=== PATIENT | male | born 1955 | race Caucasian/White ===

== ENCOUNTER 2017-05-20 22:44 | Emergency (ER) | payer MEDICARE, MEDICAID ==
[~2017-05-20] VITALS: Ht 183.5 cm; Wt 100.0 kg
[~2017-05-20 22:44] MED LIST: ALBU18HF2 IH; ASPI-1009 PO; CARV25TA3 PO; DULO60CA64 PO; FINA5TAB3 PO; FOLI1TAB16 PO; FURO40TA4 PO; GABA-532 PO; HYDR-4069 PO; HYDR-565 PO; INSU100I31 SQ; INSU200I SQ; ISOS30TA9 PO; LEVO250T58 PO; MOME13HF INH; NEPHC PO; OMEP20TA5 PO; [UNRECOGNIZED DRUG - CODE] PO
[2017-05-20 23:32] LABS: BASOPHILS % (AUTO) 0.2 % (0-1); EOSINOPHILS # (AUTO) 0.1 X10'3 (0-0.9); EOSINOPHILS % (AUTO) 0.8 % (0-6); HEMATOCRIT 37.7 % (42.0-52.0); LYMPHOCYTES # (AUTO) 1.4 X10'3 (1.1-4.8); LYMPHOCYTES % (AUTO) 19.1 % (21-51); MEAN CORPUSCULAR HEMOGLOBIN 34.7 PG (27.0-31.0); MEAN CORPUSCULAR HGB CONC 34.4 % (33.0-36.5); MEAN CORPUSCULAR VOLUME 100.6 FL (78-98); MONOCYTES # (AUTO) 0.5 X10'3 (0-0.9); NEUTROPHILS # (AUTO) 5.2 X10'3 (1.8-7.7); NEUTROPHILS % (AUTO) 72.9 % (42-75); PLATELET COUNT 108 X10'3 (140-440); RED BLOOD COUNT 3.75 X10'6 (4.70-6.10); RED CELL DISTRIBUTION WIDTH 14.3 % (11.5-14.5); WHITE BLOOD COUNT 7.2 X10'3 (4.5-11.0)
[2017-05-20 23:41] LABS: ABG BASE EXCESS 5.2 mmol/L (-2.0-3.0); ABG HCO3 28.6 mmol/L (22.0-26.0); ABG OXYGEN SATURATION 89.8 % (95-98); ABG PCO2 (T) 37.3 mmHg (35.0-48.0); ABG PH (T) 7.501 (7.350-7.450); ABG PO2 (T) 52.5 mmHg (83-108); ALLEN'S TEST Positive; FCOHb 3.6 % (0.5-1.5); FMetHb 0.1 % (0.3-1.12); FO2Hb 86.5 % (94-100); PATIENT TEMPERATURE 36.6; TOTAL HEMOGLOBIN 13.8 G/dl (14.0-18.0)
[2017-05-20 23:43] LABS: INR 1.1 INR; PARTIAL THROMBOPLASTIN TIME 24 SECONDS (22-32); PROTHROMBIN TIME 11.4 SECONDS (9.0-12.0)
[2017-05-20 23:49] LABS: ALANINE AMINOTRANSFERASE 57 U/L (12-78); ALBUMIN 3.1 G/DL (3.4-5.0); ALBUMIN/GLOBULIN RATIO 0.8 (1.1-1.5); ALKALINE PHOSPHATASE 91 IU/L (46-116); ANION GAP 7 (8-16); ASPARTATE AMINO TRANSFERASE 44 U/L (10-37); BILIRUBIN,TOTAL 0.7 MG/DL (0.1-1.0); BLOOD UREA NITROGEN 26 MG/DL (7-18); BUN/CREATININE RATIO 7.2 (5.4-32.0); CALCIUM 8.5 MG/DL (8.5-10.1); CHLORIDE 101 MMOL/L (99-107); CREATININE 3.59 MG/DL (0.60-1.10); GLUCOSE 60 MG/DL (70-104); SODIUM 138 MMOL/L (135-145); TOTAL CARBON DIOXIDE 30.3 MMOL/L (24-32); TOTAL PROTEIN 7.2 G/DL (6.4-8.2); eGFR 17 ML/MIN
[2017-05-20 23:58] LABS: ETHANOL < 0.010 GM/DL (0.0-0.010); MAGNESIUM 1.8 MG/DL (1.5-2.4)
[2017-05-21] LABS: ACETAMINOPHEN < 2.0 UG/ML (10-30)
[2017-05-21] MEDS ORDERED: HYDROcodone/acetaminophen 10/325mg tab PO ONE (00:15)
[2017-05-21 01:03] VITALS: BP 104/53
== END 2017-05-21 01:03 | disposition home or self-care (01) ==
LOC: ER 22:45
DX: R41.82 Altered mental status, unspecified (principal); F43.29 Adjustment disorder with other symptoms; I13.2 Hypertensive heart and chronic kidney disease with heart failure and with stage 5 chronic kidney disease, or end stage renal disease; E11.22 Type 2 diabetes mellitus with diabetic chronic kidney disease; N18.6 End stage renal disease; I50.9 Heart failure, unspecified; E11.649 Type 2 diabetes mellitus with hypoglycemia without coma; I25.2 Old myocardial infarction; J44.9 Chronic obstructive pulmonary disease, unspecified; K21.9 Gastro-esophageal reflux disease without esophagitis; G89.29 Other chronic pain; Z95.5 Presence of coronary angioplasty implant and graft; Z99.2 Dependence on renal dialysis; Z90.49 Acquired absence of other specified parts of digestive tract; Z79.82 Long term (current) use of aspirin; Z79.4 Long term (current) use of insulin; Z79.899 Other long term (current) drug therapy
CPT/HCPCS: 36415; 36600; 70450; 71045; 80053; 80320; 80329; 82803; 82948; 83735; 84443; 84484; 85018; 85025; 85610; 85730; 93005; 99285

== ENCOUNTER 2017-06-24 13:55 | Emergency (ER) | payer MEDICARE, MEDICAID ==
[~2017-06-24] VITALS: Ht 182.9 cm; Wt 95.5 kg
[2017-06-24] MEDS ORDERED: fentaNYL/PF 50MCG/1 ML 2ML syringe IV ONE (15:30)
[2017-06-24] MEDS ORDERED: LIDOcaine 5% patch TP ONE (15:30)
[2017-06-24] MEDS ORDERED: LIDO700A32 TOP (15:32)
[2017-06-24] MEDS ORDERED: HYDR-3965 PO (15:33)
[2017-06-24 16:02] VITALS: BP 145/78
== END 2017-06-24 16:15 | disposition home or self-care (01) ==
LOC: ER 13:59
DX: R07.81 Pleurodynia (principal); M54.5 Low back pain; I11.0 Hypertensive heart disease with heart failure; I50.9 Heart failure, unspecified; I25.2 Old myocardial infarction; J44.9 Chronic obstructive pulmonary disease, unspecified; G89.29 Other chronic pain; K21.9 Gastro-esophageal reflux disease without esophagitis; E11.9 Type 2 diabetes mellitus without complications; Z79.82 Long term (current) use of aspirin; Z79.899 Other long term (current) drug therapy; Z79.4 Long term (current) use of insulin
CPT/HCPCS: 71045; 93005; 96374; 99284; J3010

== ENCOUNTER 2017-07-03 09:18 | Inpatient (IN) | payer MEDICARE, MEDICAID ==
[2017-07-03] VITALS (9 sets, daily range): BP systolic 103–188; BP diastolic 50–82
[~2017-07-03] VITALS: Ht 182.9 cm; Wt 88.9 kg
[~2017-07-03 09:18] MED LIST changes: +HYDR-3965 PO; +LIDO700A32 TOP; +folic acid 1mg tablet PO SCH; +thiamine 100mg tablet PO SCH
[2017-07-03] MEDS ORDERED: normal saline 1000ML IV soln IVB ONE (09:45)
[2017-07-03] MEDS ORDERED: dextrose 50%-water 50ml dispensing syringe IV ONE ×4 (09:50→11:40)
[2017-07-03 10:01] LABS: ABG BASE EXCESS -0.8 mmol/L (-2.0-3.0); ABG HCO3 25.3 mmol/L (22.0-26.0); ABG OXYGEN SATURATION 84.1 % (95-98); ABG PCO2 (T) 47.6 mmHg (35.0-48.0); ABG PH (T) 7.344 (7.350-7.450); ABG PO2 (T) 42.3 mmHg (83-108); ALLEN'S TEST Positive; FCOHb 17.1 % (0.5-1.5); FMetHb 0.3 % (0.3-1.12); FO2Hb 69.5 % (94-100); TOTAL HEMOGLOBIN 13.3 G/dl (14.0-18.0)
[2017-07-03 10:06] LABS: BASOPHILS % (AUTO) 0.1 % (0-1); EOSINOPHILS # (AUTO) 0.1 X10'3 (0-0.9); EOSINOPHILS % (AUTO) 0.9 % (0-6); HEMATOCRIT 36.1 % (42.0-52.0); HEMOGLOBIN 12.9 g/dl (14.0-17.9); LYMPHOCYTES # (AUTO) 1.2 X10'3 (1.1-4.8); LYMPHOCYTES % (AUTO) 14.8 % (21-51); MEAN CORPUSCULAR HEMOGLOBIN 35.6 PG (27.0-31.0); MEAN CORPUSCULAR HGB CONC 35.6 % (33.0-36.5); MEAN PLATELET VOLUME 8.3 FL (7.4-10.4); MONOCYTES # (AUTO) 0.2 X10'3 (0-0.9); MONOCYTES % (AUTO) 2.7 % (2-12); NEUTROPHILS # (AUTO) 6.7 X10'3 (1.8-7.7); NEUTROPHILS % (AUTO) 81.5 % (42-75); PLATELET COUNT 118 X10'3 (140-440); RED BLOOD COUNT 3.61 X10'6 (4.70-6.10); RED CELL DISTRIBUTION WIDTH 16.2 % (11.5-14.5); WHITE BLOOD COUNT 8.2 X10'3 (4.5-11.0)
[2017-07-03 10:25] LABS: LACTIC SEPSIS 0.8 MMOL/L (0.4-2.0)
[2017-07-03 10:32] LABS: ALANINE AMINOTRANSFERASE 50 U/L (12-78); ALBUMIN 2.9 G/DL (3.4-5.0); ALBUMIN/GLOBULIN RATIO 0.8 (1.1-1.5); ALKALINE PHOSPHATASE 67 IU/L (46-116); ANION GAP 11 (8-16); ASPARTATE AMINO TRANSFERASE 38 U/L (10-37); BILIRUBIN,TOTAL 0.5 MG/DL (0.1-1.0); BLOOD UREA NITROGEN 80 MG/DL (7-18); BUN/CREATININE RATIO 18.6 (5.4-32.0); CALCIUM 8.6 MG/DL (8.5-10.1); CHLORIDE 103 MMOL/L (99-107); CREATININE 4.29 MG/DL (0.60-1.10); ETHANOL < 0.010 GM/DL (0.0-0.010); GLUCOSE 75 MG/DL (70-104); POTASSIUM 4.3 MMOL/L (3.5-5.1); SODIUM 140 MMOL/L (135-145); TOTAL CARBON DIOXIDE 26.4 MMOL/L (24-32); TOTAL PROTEIN 6.7 G/DL (6.4-8.2); TROPONIN I < 0.04 NG/ML (0.0-0.05); eGFR 14 ML/MIN
[2017-07-03 10:50] LABS: TOTAL CELLS COUNTED 100
[2017-07-03 10:51] LABS: ANISOCYTOSIS 1+; PLATELET ESTIMATE DECREASED; TOXIC GRANULATION 1+; TOXIC VACUOLATION 1+
[2017-07-03 11:12] LABS: CLARITY,URINE CLEAR (Clear); COLOR,URINE YELLOW (Yellow); GLUCOSE, URINE NEGATIVE (Neg); KETONES,URINE NEGATIVE (Neg); LEUKOCYTE ESTERASE ,URINE NEGATIVE (Neg); NITRITES, URINE NEGATIVE (Neg); OCCULT BLOOD,URINE NEGATIVE (Neg); PROTEIN,URINE 30 mg/dl (Neg); UROBILINOGEN,URINE 0.2 E.U/dL (0.2-1.0)
[2017-07-03 11:27] LABS: UA COLLECTION TYPE FOLEY CATH
[2017-07-03 11:44] LABS: URINE AMPHETAMINE SCREEN NEGATIVE (Neg); URINE BARBITUATE SCREEN NEGATIVE (Neg); URINE BENZODIAZEPINES SCREEN NEGATIVE (Neg); URINE CANNABINOID SCREEN POSITIVE (Neg); URINE COCAINE SCREEN NEGATIVE (Neg); URINE METHADONE SCREEN NEGATIVE (Neg); URINE OPIATE SCREEN POSITIVE (Neg); URINE PHENCYCLIDINE SCREEN NEGATIVE (Neg)
[2017-07-03 12:15] LABS: BACTERIA,URINE NONE SEEN /HPF (Neg); RBC,URINE NONE SEEN /HPF (0-2); SQUAMOUS EPITHELIAL CELL,UR NONE SEEN /LPF (FEW); WBC,URINE NONE SEEN /HPF (0-4)
[2017-07-03] MEDS ORDERED: acetaminophen 325mg tablet PO PRN ×2 (12:50)
[2017-07-03] MEDS ORDERED: thiamine 100mg/ml 2ml inj. IV ONE (12:50)
[2017-07-03] MEDS ORDERED: haloperidol lactate 5mg/ml inj IM PRN (12:50)
[2017-07-03] MEDS ORDERED: haloperidol 5mg tablet PO PRN (12:50)
[2017-07-03] MEDS ORDERED: dextrose 50%-water 50ml dispensing syringe IV PRN ×3 (12:50→21:15)
[2017-07-03] MEDS: folic acid inj. 2 MG, thiamine inj. 100 MG, MVI, adult No.4 with vit. K 10 ML in dextro... IV SCH ×4 (15:41)
[2017-07-03] MEDS: HYDROcodone/acetaminophen 10/325mg tab PO PRN (19:32)
[2017-07-03] MEDS: heparin, porcine 5000 units/ml vial SQ SCH (20:44)
[2017-07-03] MEDS ORDERED: dextrose ORAL solution 15 GM/59 ML bottle PO PRN ×2 (21:15)
[2017-07-03] MEDS ORDERED: MESSAGE TO PHARMACY PO ONE (21:15)
[2017-07-03] MEDS ORDERED: glucagon, human recombinant 1mg kit SUBCUT PRN (21:15)
[2017-07-03] MEDS: insulin glargine (Lantus) pen - multi-dose SQ SCH (23:26)
[2017-07-04] VITALS (25 sets, daily range): BP systolic 85–186; BP diastolic 41–90
[2017-07-04] MEDS: hydrALAZINE 25 MG tablet PO SCH ×3 (01:20→16:52)
[2017-07-04] MEDS: HYDROcodone/acetaminophen 10/325mg tab PO PRN (05:02)
[2017-07-04 06:23] LABS: BASOPHILS % (AUTO) 0 % (0-1); EOSINOPHILS # (AUTO) 0.1 X10'3 (0-0.9); EOSINOPHILS % (AUTO) 1.3 % (0-6); HEMATOCRIT 37.7 % (42.0-52.0); HEMOGLOBIN 13.3 g/dl (14.0-17.9); LYMPHOCYTES # (AUTO) 1.1 X10'3 (1.1-4.8); LYMPHOCYTES % (AUTO) 11.3 % (21-51); MEAN CORPUSCULAR HEMOGLOBIN 34.9 PG (27.0-31.0); MEAN CORPUSCULAR HGB CONC 35.2 % (33.0-36.5); MEAN CORPUSCULAR VOLUME 99.3 FL (78-98); MEAN PLATELET VOLUME 9.2 FL (7.4-10.4); MONOCYTES # (AUTO) 0.3 X10'3 (0-0.9); MONOCYTES % (AUTO) 3.3 % (2-12); NEUTROPHILS # (AUTO) 8.2 X10'3 (1.8-7.7); NEUTROPHILS % (AUTO) 84.1 % (42-75); PLATELET COUNT 113 X10'3 (140-440); RED BLOOD COUNT 3.79 X10'6 (4.70-6.10); RED CELL DISTRIBUTION WIDTH 16.2 % (11.5-14.5); WHITE BLOOD COUNT 9.7 X10'3 (4.5-11.0)
[2017-07-04 07:03] LABS: ANION GAP 12 (8-16); BLOOD UREA NITROGEN 77 MG/DL (7-18); BUN/CREATININE RATIO 19.7 (5.4-32.0); CALCIUM 8.4 MG/DL (8.5-10.1); CHLORIDE 98 MMOL/L (99-107); CREATININE 3.91 MG/DL (0.60-1.10); GLUCOSE 242 MG/DL (70-104); POTASSIUM 5.1 MMOL/L (3.5-5.1); SODIUM 135 MMOL/L (135-145); TOTAL CARBON DIOXIDE 24.7 MMOL/L (24-32); eGFR 16 ML/MIN
[2017-07-04 07:04] LABS: ALANINE AMINOTRANSFERASE 60 U/L (12-78); ALBUMIN 2.9 G/DL (3.4-5.0); ALBUMIN/GLOBULIN RATIO 0.7 (1.1-1.5); ALKALINE PHOSPHATASE 94 IU/L (46-116); ASPARTATE AMINO TRANSFERASE 40 U/L (10-37); BILIRUBIN,TOTAL 0.5 MG/DL (0.1-1.0); PHOSPHORUS 4.5 MG/DL (2.3-4.5); TOTAL PROTEIN 6.8 G/DL (6.4-8.2)
[2017-07-04] MEDS ORDERED: LIDOcaine 1% (10mg/ml) 2ml vial SQ ONE (08:00)
[2017-07-04] MEDS ORDERED: multivitamins, therapeutics tablet PO SCH (08:00)
[2017-07-04] MEDS: fluticasone/vilanterol 200mcg/25mcg inhaler IH SCH (08:00)
[2017-07-04] MEDS: isosorbide dinitrate 30mg tablet PO SCH ×2 (08:00→20:07)
[2017-07-04] MEDS ORDERED: normal saline 1000ml 250 ML IV PRN (08:00)
[2017-07-04] MEDS ORDERED: heparin 1,000 units/ml 10ml inj IV ONE (08:00)
[2017-07-04] MEDS ORDERED: epoetin 20,000 units/ml inj IV ONE (08:00)
[2017-07-04] MEDS ORDERED: heparin 1,000unit/ml 10ml vial 10 ML IV ONE (08:00)
[2017-07-04] MEDS: aspirin 81mg tablet.DR PO SCH (08:26)
[2017-07-04] MEDS: furosemide 40mg tablet PO SCH ×2 (08:26→19:48)
[2017-07-04] MEDS: folic acid 1mg tablet PO SCH (08:26)
[2017-07-04] MEDS: carVEDilol 12.5mg tablet PO SCH ×2 (08:27→19:48)
[2017-07-04] MEDS: folic acid inj. 2 MG, thiamine inj. 100 MG, MVI, adult No.4 with vit. K 10 ML in dextro... IV SCH ×4 (08:28)
[2017-07-04] MEDS: heparin, porcine 5000 units/ml vial SQ SCH ×2 (08:30→19:48)
[2017-07-04] MEDS: duloxetine 30mg CAPSULE.DR PO SCH (08:30)
[2017-07-04] MEDS: LIDOcaine 5% patch TP SCH (09:38)
[2017-07-04] MEDS: folic acid/vitamin B complex w/vitamin C 0.8mg tablet PO SCH (09:39)
[2017-07-04] MEDS: finasteride 5mg tablet PO SCH (09:39)
[2017-07-04] MEDS ORDERED: albumin (human) 25% 100 ML IV solution IV ONE (10:10)
[2017-07-04] MEDS ORDERED: heparin 1,000 units/ml 10ml inj HE ONE ×2 (10:50)
[2017-07-04] MEDS: insulin Lispro (HumaLOG) vial - multi-dose SQ SCH ×2 (14:23→19:54)
[2017-07-04] MEDS: ondansetron/PF 4mg/2ml inj IV PRN (16:53)
[2017-07-04] MEDS: insulin glargine (Lantus) pen - multi-dose SQ SCH (21:38)
[2017-07-05] VITALS (23 sets, daily range): BP systolic 127–182; BP diastolic 57–87
[2017-07-05] MEDS: hydrALAZINE 25 MG tablet PO SCH ×3 (00:20→17:42)
[2017-07-05] MEDS: HYDROcodone/acetaminophen 10/325mg tab PO PRN ×3 (02:17→21:58)
[2017-07-05] MEDS: ondansetron/PF 4mg/2ml inj IV PRN ×2 (03:55→20:21)
[2017-07-05 06:21] LABS: BASOPHILS % (AUTO) 0.3 % (0-1); EOSINOPHILS % (AUTO) 0.5 % (0-6); HEMATOCRIT 32.4 % (42.0-52.0); HEMOGLOBIN 11.6 g/dl (14.0-17.9); LYMPHOCYTES # (AUTO) 1.2 X10'3 (1.1-4.8); LYMPHOCYTES % (AUTO) 18.4 % (21-51); MEAN CORPUSCULAR HEMOGLOBIN 35.6 PG (27.0-31.0); MEAN CORPUSCULAR HGB CONC 35.9 % (33.0-36.5); MEAN CORPUSCULAR VOLUME 99.1 FL (78-98); MEAN PLATELET VOLUME 8.4 FL (7.4-10.4); MONOCYTES # (AUTO) 0.4 X10'3 (0-0.9); MONOCYTES % (AUTO) 5.8 % (2-12); NEUTROPHILS # (AUTO) 4.8 X10'3 (1.8-7.7); PLATELET COUNT 90 X10'3 (140-440); RED BLOOD COUNT 3.27 X10'6 (4.70-6.10); RED CELL DISTRIBUTION WIDTH 15.9 % (11.5-14.5); WHITE BLOOD COUNT 6.4 X10'3 (4.5-11.0)
[2017-07-05 06:41] LABS: ALANINE AMINOTRANSFERASE 49 U/L (12-78); ALBUMIN 2.9 G/DL (3.4-5.0); ALBUMIN/GLOBULIN RATIO 0.8 (1.1-1.5); ALKALINE PHOSPHATASE 59 IU/L (46-116); ANION GAP 9 (8-16); ASPARTATE AMINO TRANSFERASE 33 U/L (10-37); BILIRUBIN,TOTAL 0.8 MG/DL (0.1-1.0); BLOOD UREA NITROGEN 38 MG/DL (7-18); BUN/CREATININE RATIO 15.4 (5.4-32.0); CALCIUM 8.5 MG/DL (8.5-10.1); CHLORIDE 101 MMOL/L (99-107); CREATININE 2.46 MG/DL (0.60-1.10); GLUCOSE 161 MG/DL (70-104); MAGNESIUM 1.9 MG/DL (1.5-2.4); PHOSPHORUS 3.8 MG/DL (2.3-4.5); POTASSIUM 4.1 MMOL/L (3.5-5.1); SODIUM 138 MMOL/L (135-145); TOTAL CARBON DIOXIDE 28.4 MMOL/L (24-32); TOTAL PROTEIN 6.5 G/DL (6.4-8.2); eGFR 27 ML/MIN
[2017-07-05] MEDS: finasteride 5mg tablet PO SCH (07:39)
[2017-07-05] MEDS: folic acid inj. 2 MG, thiamine inj. 100 MG, MVI, adult No.4 with vit. K 10 ML in dextro... IV SCH ×4 (07:40)
[2017-07-05] MEDS: aspirin 81mg tablet.DR PO SCH (07:40)
[2017-07-05] MEDS: duloxetine 30mg CAPSULE.DR PO SCH (07:40)
[2017-07-05] MEDS: folic acid 1mg tablet PO SCH (07:40)
[2017-07-05] MEDS: heparin, porcine 5000 units/ml vial SQ SCH ×2 (07:41→19:11)
[2017-07-05] MEDS: fluticasone/vilanterol 200mcg/25mcg inhaler IH SCH (07:56)
[2017-07-05] MEDS: furosemide 40mg tablet PO SCH ×2 (08:47→19:10)
[2017-07-05] MEDS: carVEDilol 12.5mg tablet PO SCH ×2 (08:47→19:10)
[2017-07-05] MEDS: insulin Lispro (HumaLOG) vial - multi-dose SQ SCH ×3 (08:50→18:42)
[2017-07-05] MEDS: isosorbide dinitrate 30mg tablet PO SCH ×2 (08:57→19:10)
[2017-07-05] MEDS: folic acid/vitamin B complex w/vitamin C 0.8mg tablet PO SCH (08:57)
[2017-07-05] MEDS: LIDOcaine 5% patch TP SCH (08:58)
[2017-07-05 11:08] LABS: ANISOCYTOSIS 1+; PLATELET ESTIMATE DECREASED; SMUDGE CELLS 1+; TOTAL CELLS COUNTED 100
[2017-07-05 11:10] LABS: TOXIC GRANULATION 1+
[2017-07-05] MEDS ORDERED: sucralfate 1gm/10ml UD suspension PO ONE (11:15)
[2017-07-05] MEDS: sucralfate 1gm/10ml UD suspension PO SCH ×2 (11:49→19:10)
[2017-07-05] MEDS ORDERED: lactulose 20gm/30ml cup PO PRN (12:50)
[2017-07-05] MEDS: insulin glargine (Lantus) pen - multi-dose SQ SCH (21:53)
[2017-07-06] MEDS: hydrALAZINE 25 MG tablet PO SCH ×3 (00:37→15:54)
[2017-07-06] MEDS: sucralfate 1gm/10ml UD suspension PO SCH ×4 (01:39→20:55)
[2017-07-06] MEDS: ondansetron/PF 4mg/2ml inj IV PRN (01:59)
[2017-07-06] MEDS ORDERED: nitroGLYCERIN 1gm ointment UD TP ONE (03:45)
[2017-07-06] MEDS ORDERED: metoclopramide 5 mg/ml inj IV ONE (03:45)
[2017-07-06] MEDS ORDERED: metoclopramide 5 mg/ml inj ONE (04:15)
[2017-07-06] MEDS: HYDROcodone/acetaminophen 10/325mg tab PO PRN ×3 (04:20→20:43)
[2017-07-06] MEDS: furosemide 40mg tablet PO SCH ×2 (05:04→20:43)
[2017-07-06] MEDS: carVEDilol 12.5mg tablet PO SCH ×2 (05:05→20:42)
[2017-07-06 05:30] LABS: BASOPHILS % (AUTO) 0.2 % (0-1); EOSINOPHILS % (AUTO) 0.8 % (0-6); HEMATOCRIT 33.2 % (42.0-52.0); HEMOGLOBIN 11.8 g/dl (14.0-17.9); LYMPHOCYTES # (AUTO) 0.8 X10'3 (1.1-4.8); LYMPHOCYTES % (AUTO) 16.7 % (21-51); MEAN CORPUSCULAR HEMOGLOBIN 35.5 PG (27.0-31.0); MEAN CORPUSCULAR HGB CONC 35.6 % (33.0-36.5); MEAN CORPUSCULAR VOLUME 99.6 FL (78-98); MONOCYTES # (AUTO) 0.2 X10'3 (0-0.9); MONOCYTES % (AUTO) 4.9 % (2-12); NEUTROPHILS # (AUTO) 3.8 X10'3 (1.8-7.7); NEUTROPHILS % (AUTO) 77.4 % (42-75); PLATELET COUNT 91 X10'3 (140-440); RED BLOOD COUNT 3.33 X10'6 (4.70-6.10); RED CELL DISTRIBUTION WIDTH 15.8 % (11.5-14.5); WHITE BLOOD COUNT 4.9 X10'3 (4.5-11.0)
[2017-07-06 06:08] LABS: ALANINE AMINOTRANSFERASE 67 U/L (12-78); ALBUMIN/GLOBULIN RATIO 0.8 (1.1-1.5); ALKALINE PHOSPHATASE 65 IU/L (46-116); ANION GAP 11 (8-16); ASPARTATE AMINO TRANSFERASE 55 U/L (10-37); BILIRUBIN,TOTAL 0.7 MG/DL (0.1-1.0); BLOOD UREA NITROGEN 43 MG/DL (7-18); BUN/CREATININE RATIO 14.7 (5.4-32.0); CALCIUM 8.5 MG/DL (8.5-10.1); CHLORIDE 99 MMOL/L (99-107); CREATININE 2.92 MG/DL (0.60-1.10); GLUCOSE 186 MG/DL (70-104); MAGNESIUM 1.7 MG/DL (1.5-2.4); POTASSIUM 3.8 MMOL/L (3.5-5.1); SODIUM 137 MMOL/L (135-145); TOTAL CARBON DIOXIDE 27.2 MMOL/L (24-32); TOTAL PROTEIN 6.6 G/DL (6.4-8.2); eGFR 22 ML/MIN
[2017-07-06 06:30] VITALS: BP 181/72
[2017-07-06] MEDS ORDERED: heparin 1,000 units/ml 10ml inj HE ONE ×2 (07:20)
[2017-07-06] MEDS: fluticasone/vilanterol 200mcg/25mcg inhaler IH SCH (07:42)
[2017-07-06] MEDS ORDERED: LIDOcaine 1% (10mg/ml) 2ml vial SQ ONE (08:00)
[2017-07-06] MEDS ORDERED: albumin (human) 25% 100ml IV 100 ML IV PRN (08:00)
[2017-07-06] MEDS ORDERED: epoetin 20,000 units/ml inj IV ONE (08:00)
[2017-07-06] MEDS: heparin, porcine 5000 units/ml vial SQ SCH ×2 (08:00→20:42)
[2017-07-06] MEDS ORDERED: heparin 1,000 units/ml 10ml inj IV ONE (08:00)
[2017-07-06] MEDS ORDERED: heparin 1,000unit/ml 10ml vial 10 ML IV ONE (08:00)
[2017-07-06] MEDS: folic acid 1mg tablet PO SCH (09:04)
[2017-07-06] MEDS: aspirin 81mg tablet.DR PO SCH (09:04)
[2017-07-06] MEDS: thiamine 100mg tablet PO SCH (09:05)
[2017-07-06] MEDS: isosorbide dinitrate 30mg tablet PO SCH ×2 (09:05→20:42)
[2017-07-06] MEDS: folic acid/vitamin B complex w/vitamin C 0.8mg tablet PO SCH (09:05)
[2017-07-06] MEDS: multivitamins, therapeutics tablet PO SCH (09:05)
[2017-07-06] MEDS: duloxetine 30mg CAPSULE.DR PO SCH (09:05)
[2017-07-06] MEDS: LIDOcaine 5% patch TP SCH (09:08)
[2017-07-06] MEDS: insulin Lispro (HumaLOG) vial - multi-dose SQ SCH ×2 (09:12→13:37)
[2017-07-06] MEDS: finasteride 5mg tablet PO SCH (09:16)
[2017-07-06 11:11] VITALS: BP 136/61
[2017-07-06 15:33] VITALS: BP 176/78
[2017-07-06 18:30] VITALS: BP 149/65
[2017-07-06] MEDS: albuterol 2.5 MG/3 ML nebule NEB PRN (21:45)
[2017-07-06] MEDS ORDERED: LORazepam 1 MG tablet PO ONE (21:50)
[2017-07-06 22:00] VITALS: BP 148/68
[2017-07-07] MEDS: hydrALAZINE 25 MG tablet PO SCH ×2 (01:09→08:04)
[2017-07-07] MEDS: sucralfate 1gm/10ml UD suspension PO SCH ×3 (01:10→13:15)
[2017-07-07] MEDS: HYDROcodone/acetaminophen 10/325mg tab PO PRN (03:04)
[2017-07-07 05:30] VITALS: BP 162/79
[2017-07-07 06:07] LABS: BASOPHILS % (AUTO) 0.2 % (0-1); EOSINOPHILS # (AUTO) 0.1 X10'3 (0-0.9); EOSINOPHILS % (AUTO) 1.1 % (0-6); HEMOGLOBIN 12.2 g/dl (14.0-17.9); LYMPHOCYTES # (AUTO) 0.8 X10'3 (1.1-4.8); LYMPHOCYTES % (AUTO) 15.9 % (21-51); MEAN CORPUSCULAR HGB CONC 34.9 % (33.0-36.5); MEAN CORPUSCULAR VOLUME 100.5 FL (78-98); MEAN PLATELET VOLUME 9.1 FL (7.4-10.4); MONOCYTES # (AUTO) 0.3 X10'3 (0-0.9); MONOCYTES % (AUTO) 6.5 % (2-12); NEUTROPHILS # (AUTO) 3.6 X10'3 (1.8-7.7); NEUTROPHILS % (AUTO) 76.3 % (42-75); PLATELET COUNT 100 X10'3 (140-440); RED BLOOD COUNT 3.48 X10'6 (4.70-6.10); RED CELL DISTRIBUTION WIDTH 15.9 % (11.5-14.5); WHITE BLOOD COUNT 4.8 X10'3 (4.5-11.0)
[2017-07-07 06:30] VITALS: BP 182/79
[2017-07-07 06:31] LABS: ALANINE AMINOTRANSFERASE 94 U/L (12-78); ALBUMIN/GLOBULIN RATIO 0.8 (1.1-1.5); ALKALINE PHOSPHATASE 70 IU/L (46-116); ANION GAP 11 (8-16); ASPARTATE AMINO TRANSFERASE 76 U/L (10-37); BILIRUBIN,TOTAL 0.6 MG/DL (0.1-1.0); BLOOD UREA NITROGEN 29 MG/DL (7-18); BUN/CREATININE RATIO 11.8 (5.4-32.0); CALCIUM 8.5 MG/DL (8.5-10.1); CHLORIDE 100 MMOL/L (99-107); CREATININE 2.45 MG/DL (0.60-1.10); GLUCOSE 187 MG/DL (70-104); MAGNESIUM 1.8 MG/DL (1.5-2.4); PHOSPHORUS 2.6 MG/DL (2.3-4.5); POTASSIUM 3.7 MMOL/L (3.5-5.1); SODIUM 138 MMOL/L (135-145); TOTAL CARBON DIOXIDE 27.2 MMOL/L (24-32); TOTAL PROTEIN 6.8 G/DL (6.4-8.2); eGFR 27 ML/MIN
[2017-07-07] MEDS: LIDOcaine 5% patch TP SCH ×2 (08:00→08:05)
[2017-07-07] MEDS: heparin, porcine 5000 units/ml vial SQ SCH (08:00)
[2017-07-07] MEDS: furosemide 40mg tablet PO SCH (08:03)
[2017-07-07] MEDS: isosorbide dinitrate 30mg tablet PO SCH (08:03)
[2017-07-07] MEDS: folic acid/vitamin B complex w/vitamin C 0.8mg tablet PO SCH (08:03)
[2017-07-07] MEDS: folic acid 1mg tablet PO SCH (08:03)
[2017-07-07] MEDS: thiamine 100mg tablet PO SCH (08:03)
[2017-07-07] MEDS: multivitamins, therapeutics tablet PO SCH (08:03)
[2017-07-07] MEDS: duloxetine 30mg CAPSULE.DR PO SCH (08:04)
[2017-07-07] MEDS: finasteride 5mg tablet PO SCH (08:04)
[2017-07-07] MEDS: carVEDilol 12.5mg tablet PO SCH (08:04)
[2017-07-07] MEDS: aspirin 81mg tablet.DR PO SCH (08:04)
[2017-07-07] MEDS: fluticasone/vilanterol 200mcg/25mcg inhaler IH SCH (08:06)
[2017-07-07] MEDS: albuterol 2.5 MG/3 ML nebule NEB PRN (08:06)
[2017-07-07] MEDS: insulin Lispro (HumaLOG) vial - multi-dose SQ SCH ×2 (08:13→13:20)
[2017-07-07 11:00] VITALS: BP 108/68
[2017-07-07] MEDS ORDERED: nicotine 21mg patch - 24 hr TD ONE (12:50)
[2017-07-08] MEDS ORDERED: nicotine 21mg patch - 24 hr TD SCH (12:00)
== END 2017-07-07 15:43 | disposition left against medical advice (07) | DRG 91 ==
LOC: ER 09:18 → ED HOLD 12:47 → EDBEDREQ 13:08 → ICU 2S 14:43 → PCU 3S 07-05 20:05
PROC: 5A1D70Z Performance of Urinary Filtration, Intermittent, Less than 6 Hours Per Day (ICD-10-PCS; 2017-07-04)
PROC: 5A1D70Z Performance of Urinary Filtration, Intermittent, Less than 6 Hours Per Day (ICD-10-PCS; principal; 2017-07-06)
DX: G92 Toxic encephalopathy (principal); N18.6 End stage renal disease; I13.2 Hypertensive heart and chronic kidney disease with heart failure and with stage 5 chronic kidney disease, or end stage renal disease; E11.22 Type 2 diabetes mellitus with diabetic chronic kidney disease; E11.649 Type 2 diabetes mellitus with hypoglycemia without coma; E87.2 Acidosis; F32.9 Major depressive disorder, single episode, unspecified; G89.29 Other chronic pain; R03.1 Nonspecific low blood-pressure reading; B19.20 Unspecified viral hepatitis C without hepatic coma; F41.9 Anxiety disorder, unspecified; Z53.21 Procedure and treatment not carried out due to patient leaving prior to being seen by health care provider; M54.9 Dorsalgia, unspecified; H70.92 Unspecified mastoiditis, left ear; I50.9 Heart failure, unspecified; J44.9 Chronic obstructive pulmonary disease, unspecified; K21.9 Gastro-esophageal reflux disease without esophagitis; R09.02 Hypoxemia; T50.995A Adverse effect of other drugs, medicaments and biological substances, initial encounter; I25.2 Old myocardial infarction; Z99.2 Dependence on renal dialysis; Z79.899 Other long term (current) drug therapy; Z79.891 Long term (current) use of opiate analgesic; Z79.4 Long term (current) use of insulin; Z82.41 Family history of sudden cardiac death; Z82.49 Family history of ischemic heart disease and other diseases of the circulatory system; Y92.89 Other specified places as the place of occurrence of the external cause
CPT/HCPCS: 36415; 36600; 70450; 71045; 72131; 74176; 80053; 80305; 80320; 81001; 82140; 82803; 82948; 83036; 83605; 83735; 84100; 84484; 85018; 85025; 87040; 87070; 90935; 93005; 94640; 94760; 96374; 96376; 99291; 99292; A4353; A6213; A6257; A6258; A6402; G0257; J0885; J1644; J1815; J2405; J2765; J3411; J3490; J7030; J7060; P9047

== ENCOUNTER 2017-07-14 17:27 | Inpatient (IN) | payer MEDICARE, MEDICAID ==
[~2017-07-14] VITALS: Ht 185.4 cm; Wt 90.6 kg
[~2017-07-14 17:27] MED LIST changes: -folic acid 1mg tablet PO SCH; -thiamine 100mg tablet PO SCH
[2017-07-14 20:33] LABS: BASOPHILS % (AUTO) 0 % (0-1); EOSINOPHILS # (AUTO) 0.1 X10'3 (0-0.9); HEMATOCRIT 36.4 % (42.0-52.0); HEMOGLOBIN 12.5 g/dl (14.0-17.9); LYMPHOCYTES # (AUTO) 1.1 X10'3 (1.1-4.8); LYMPHOCYTES % (AUTO) 9.3 % (21-51); MEAN CORPUSCULAR HGB CONC 34.5 % (33.0-36.5); MEAN CORPUSCULAR VOLUME 101.7 FL (78-98); MEAN PLATELET VOLUME 8.9 FL (7.4-10.4); MONOCYTES # (AUTO) 0.1 X10'3 (0-0.9); MONOCYTES % (AUTO) 0.8 % (2-12); NEUTROPHILS # (AUTO) 10.9 X10'3 (1.8-7.7); NEUTROPHILS % (AUTO) 88.9 % (42-75); PLATELET COUNT 112 X10'3 (140-440); RED BLOOD COUNT 3.58 X10'6 (4.70-6.10); RED CELL DISTRIBUTION WIDTH 16.2 % (11.5-14.5); WHITE BLOOD COUNT 12.3 X10'3 (4.5-11.0)
[2017-07-14 20:52] LABS: INR 1.1 INR; PARTIAL THROMBOPLASTIN TIME 27 SECONDS (22-32); PROTHROMBIN TIME 11.4 SECONDS (9.0-12.0)
[2017-07-14] MEDS ORDERED: levoFLOXACIN-Levaquin 750MG/D5 150 ML IV STA (21:06)
[2017-07-14 21:07] LABS: ALANINE AMINOTRANSFERASE 66 U/L (12-78); ALBUMIN/GLOBULIN RATIO 0.8 (1.1-1.5); ALKALINE PHOSPHATASE 88 IU/L (46-116); ANION GAP 8 (8-16); ASPARTATE AMINO TRANSFERASE 49 U/L (10-37); BILIRUBIN,TOTAL 0.7 MG/DL (0.1-1.0); BLOOD UREA NITROGEN 32 MG/DL (7-18); BUN/CREATININE RATIO 10.8 (5.4-32.0); CALCIUM 8.9 MG/DL (8.5-10.1); CHLORIDE 101 MMOL/L (99-107); CREATININE 2.97 MG/DL (0.60-1.10); GLUCOSE 166 MG/DL (70-104); MAGNESIUM 1.8 MG/DL (1.5-2.4); POTASSIUM 3.9 MMOL/L (3.5-5.1); SODIUM 140 MMOL/L (135-145); TOTAL CARBON DIOXIDE 30.9 MMOL/L (24-32); eGFR 21 ML/MIN
[2017-07-14] MEDS ORDERED: nicotine 21mg patch - 24 hr TD ONE (21:15)
[2017-07-14 21:47] LABS: COLOR,URINE YELLOW (Yellow); GLUCOSE, URINE NEGATIVE (Neg); KETONES,URINE TRACE mg/dl (Neg); LEUKOCYTE ESTERASE ,URINE NEGATIVE (Neg); NITRITES, URINE NEGATIVE (Neg); OCCULT BLOOD,URINE TRACE-INTACT (Neg); PROTEIN,URINE 100 mg/dl (Neg)
[2017-07-14 22:02] LABS: UA COLLECTION TYPE STRAIGHT CATH
[2017-07-14] MEDS ORDERED: cefepime 1GM/NS ADD-VANTAGE 100 ML IV SCH (22:05)
[2017-07-14 22:06] LABS: MUCUS STRANDS FEW /LPF (Neg); SQUAMOUS EPITHELIAL CELL,UR MODERATE /LPF (FEW)
[2017-07-14 22:08] LABS: BACTERIA,URINE 2+ /HPF (Neg)
[2017-07-14 22:09] LABS: AMORPHOUS URATES 3+
[2017-07-14 22:10] LABS: CLARITY,URINE SLIGHTLY CLOUDY (Clear)
[2017-07-14] MEDS ORDERED: ondansetron/PF 4mg/2ml inj IV PRN (22:10)
[2017-07-14] MEDS ORDERED: vancomycin/NS 1 GM ADD-VANTAGE 250 ML IV STA (22:21)
[2017-07-14] MEDS: albuterol 2.5 MG/3 ML nebule NEB SCH (22:51)
[2017-07-14] MEDS ORDERED: CefTRIAXone 2gm/NS 100ml IVPB 100 ML IV ONE (23:35)
[2017-07-15] MEDS ORDERED: DULO-31 PO (04:01)
[2017-07-15] MEDS ORDERED: OMEP20TA23 PO (04:01)
[2017-07-15] MEDS ORDERED: TRAZ-143 PO (04:01)
[2017-07-15] MEDS ORDERED: ONDA4TAB9 SL (04:01)
[2017-07-15 07:15] LABS: BASOPHILS % (AUTO) 0.1 % (0-1); EOSINOPHILS % (AUTO) 0.1 % (0-6); HEMATOCRIT 32.1 % (42.0-52.0); HEMOGLOBIN 11.2 g/dl (14.0-17.9); LYMPHOCYTES # (AUTO) 0.9 X10'3 (1.1-4.8); LYMPHOCYTES % (AUTO) 12.5 % (21-51); MEAN CORPUSCULAR HGB CONC 34.8 % (33.0-36.5); MEAN CORPUSCULAR VOLUME 100.4 FL (78-98); MEAN PLATELET VOLUME 9.1 FL (7.4-10.4); MONOCYTES # (AUTO) 0.3 X10'3 (0-0.9); MONOCYTES % (AUTO) 3.8 % (2-12); NEUTROPHILS % (AUTO) 83.5 % (42-75); PLATELET COUNT 87 X10'3 (140-440); RED BLOOD COUNT 3.19 X10'6 (4.70-6.10); RED CELL DISTRIBUTION WIDTH 16.1 % (11.5-14.5); WHITE BLOOD COUNT 7.1 X10'3 (4.5-11.0)
[2017-07-15 07:26] LABS: INR 1.1 INR; PARTIAL THROMBOPLASTIN TIME 26 SECONDS (22-32); PROTHROMBIN TIME 11.6 SECONDS (9.0-12.0)
[2017-07-15] MEDS: albuterol 2.5 MG/3 ML nebule NEB SCH ×4 (07:32→21:16)
[2017-07-15 07:34] LABS: ALANINE AMINOTRANSFERASE 67 U/L (12-78); ALBUMIN 2.5 G/DL (3.4-5.0); ALBUMIN/GLOBULIN RATIO 0.7 (1.1-1.5); ALKALINE PHOSPHATASE 69 IU/L (46-116); ANION GAP 11 (8-16); ASPARTATE AMINO TRANSFERASE 39 U/L (10-37); BILIRUBIN,TOTAL 0.5 MG/DL (0.1-1.0); BLOOD UREA NITROGEN 39 MG/DL (7-18); BUN/CREATININE RATIO 14.3 (5.4-32.0); CALCIUM 8.5 MG/DL (8.5-10.1); CHLORIDE 102 MMOL/L (99-107); CREATININE 2.72 MG/DL (0.60-1.10); GLUCOSE 178 MG/DL (70-104); MAGNESIUM 1.9 MG/DL (1.5-2.4); PHOSPHORUS 3.2 MG/DL (2.3-4.5); SODIUM 141 MMOL/L (135-145); TOTAL CARBON DIOXIDE 27.6 MMOL/L (24-32); TOTAL PROTEIN 6.3 G/DL (6.4-8.2); eGFR 24 ML/MIN
[2017-07-15] MEDS: heparin, porcine 5000 units/ml vial SQ SCH ×2 (08:00→20:00)
[2017-07-15 08:33] VITALS: BP 192/87
[2017-07-15] MEDS ORDERED: HYDROcodone/acetaminophen 10/325mg tab PO PRN ×2 (09:00)
[2017-07-15] MEDS ORDERED: HYDROcodone/acetaminophen 5mg/325mg tablet PO PRN (09:00)
[2017-07-15] MEDS ORDERED: clonazePAM 0.5mg tablet PO PRN (09:00)
[2017-07-15] MEDS ORDERED: epoetin 20,000 units/ml inj IV ONE (09:05)
[2017-07-15] MEDS ORDERED: albumin (human) 25% 100ml IV 100 ML IV PRN (09:05)
[2017-07-15] MEDS ORDERED: heparin 1,000 units/ml 10ml inj IV ONE (09:05)
[2017-07-15] MEDS ORDERED: heparin 1,000unit/ml 10ml vial 10 ML IV ONE (09:05)
[2017-07-15] MEDS ORDERED: heparin 1,000 units/ml 10ml inj HE ONE ×2 (09:10)
[2017-07-15] MEDS ORDERED: albuterol 2.5 MG/3 ML nebule NEB PRN (09:25)
[2017-07-15] MEDS: HYDROcodone/acetaminophen 10/325mg tab PO PRN ×3 (09:27→23:01)
[2017-07-15 10:00] VITALS: BP 178/60
[2017-07-15] MEDS: folic acid/vitamin B complex w/vitamin C 0.8mg tablet PO SCH (10:58)
[2017-07-15] MEDS: LIDOcaine 5% patch TP SCH (10:58)
[2017-07-15] MEDS: fluticasone/vilanterol 200mcg/25mcg inhaler IH SCH (12:18)
[2017-07-15] MEDS: carVEDilol 12.5mg tablet PO SCH ×2 (13:19→19:49)
[2017-07-15] MEDS ORDERED: cefTRIAXone 1g/NS 100ml IVPB 100 ML IV ONE (15:10)
[2017-07-15] MEDS: hydrALAZINE 25 MG tablet PO SCH (16:14)
[2017-07-15] MEDS: ondansetron 4mg rapidly disintigrating tab PO PRN (17:30)
[2017-07-15] MEDS ORDERED: dextrose ORAL solution 15 GM/59 ML bottle PO PRN (17:45)
[2017-07-15] MEDS ORDERED: glucagon, human recombinant 1mg kit SUBCUT PRN (17:45)
[2017-07-15] MEDS ORDERED: dextrose 50%-water 50ml dispensing syringe IV PRN ×2 (17:45)
[2017-07-15 18:00] VITALS: BP 127/61
[2017-07-15] MEDS: insulin glargine (Lantus) pen - multi-dose SQ SCH ×2 (21:00→23:10)
[2017-07-15] MEDS: levoFLOXACIN-Levaquin 250mg/D5 50 ML IV SCH (21:12)
[2017-07-15] MEDS: gabapentin 300mg capsule PO SCH (21:28)
[2017-07-15] MEDS: furosemide 40mg tablet PO SCH (21:29)
[2017-07-15] MEDS: traZODone 50mg tablet PO SCH (21:29)
[2017-07-15] MEDS: isosorbide dinitrate 30mg tablet PO SCH (21:32)
[2017-07-15] MEDS: insulin Lispro (HumaLOG) vial - multi-dose SQ SCH (21:32)
[2017-07-15 23:00] VITALS: BP 155/66
[2017-07-16 06:00] VITALS: BP 137/61
[2017-07-16 06:54] LABS: BASOPHILS % (AUTO) 0.8 % (0-1); EOSINOPHILS # (AUTO) 0.1 X10'3 (0-0.9); EOSINOPHILS % (AUTO) 1.4 % (0-6); HEMATOCRIT 31.1 % (42.0-52.0); HEMOGLOBIN 10.8 g/dl (14.0-17.9); LYMPHOCYTES # (AUTO) 0.6 X10'3 (1.1-4.8); LYMPHOCYTES % (AUTO) 12.4 % (21-51); MEAN CORPUSCULAR HEMOGLOBIN 34.8 PG (27.0-31.0); MEAN CORPUSCULAR HGB CONC 34.7 % (33.0-36.5); MEAN CORPUSCULAR VOLUME 100.2 FL (78-98); MONOCYTES # (AUTO) 0.2 X10'3 (0-0.9); MONOCYTES % (AUTO) 4.6 % (2-12); NEUTROPHILS # (AUTO) 4.1 X10'3 (1.8-7.7); NEUTROPHILS % (AUTO) 80.8 % (42-75); PLATELET COUNT 91 X10'3 (140-440); RED CELL DISTRIBUTION WIDTH 16.4 % (11.5-14.5); WHITE BLOOD COUNT 5.1 X10'3 (4.5-11.0)
[2017-07-16 07:05] LABS: INR 1.1 INR; PARTIAL THROMBOPLASTIN TIME 25 SECONDS (22-32); PROTHROMBIN TIME 11.1 SECONDS (9.0-12.0)
[2017-07-16 07:17] LABS: ALANINE AMINOTRANSFERASE 80 U/L (12-78); ALBUMIN 2.4 G/DL (3.4-5.0); ALBUMIN/GLOBULIN RATIO 0.6 (1.1-1.5); ALKALINE PHOSPHATASE 68 IU/L (46-116); ANION GAP 10 (8-16); ASPARTATE AMINO TRANSFERASE 65 U/L (10-37); BILIRUBIN,TOTAL 0.4 MG/DL (0.1-1.0); BLOOD UREA NITROGEN 29 MG/DL (7-18); BUN/CREATININE RATIO 12.1 (5.4-32.0); CALCIUM 8.1 MG/DL (8.5-10.1); CHLORIDE 102 MMOL/L (99-107); GLUCOSE 227 MG/DL (70-104); MAGNESIUM 1.9 MG/DL (1.5-2.4); PHOSPHORUS 3.1 MG/DL (2.3-4.5); POTASSIUM 3.8 MMOL/L (3.5-5.1); SODIUM 139 MMOL/L (135-145); TOTAL CARBON DIOXIDE 26.8 MMOL/L (24-32); TOTAL PROTEIN 6.1 G/DL (6.4-8.2); eGFR 27 ML/MIN
[2017-07-16] MEDS ORDERED: insulin Lispro (HumaLOG) vial - multi-dose SQ PRN (07:30)
[2017-07-16] MEDS: folic acid 1mg tablet PO SCH (07:49)
[2017-07-16] MEDS: gabapentin 300mg capsule PO SCH ×2 (07:49→21:21)
[2017-07-16] MEDS: isosorbide dinitrate 30mg tablet PO SCH ×2 (07:50→21:21)
[2017-07-16] MEDS: furosemide 40mg tablet PO SCH ×2 (07:50→21:22)
[2017-07-16] MEDS: carVEDilol 12.5mg tablet PO SCH ×2 (07:50→21:22)
[2017-07-16] MEDS: pantoprazole 40mg Tablet.DR PO SCH (07:50)
[2017-07-16] MEDS: hydrALAZINE 25 MG tablet PO SCH ×3 (07:50→16:20)
[2017-07-16] MEDS: aspirin 81mg tablet.DR PO SCH (07:50)
[2017-07-16] MEDS: HYDROcodone/acetaminophen 10/325mg tab PO PRN ×2 (07:51→09:43)
[2017-07-16] MEDS: albuterol 2.5 MG/3 ML nebule NEB SCH ×4 (07:51→21:07)
[2017-07-16] MEDS: folic acid/vitamin B complex w/vitamin C 0.8mg tablet PO SCH (07:52)
[2017-07-16] MEDS: duloxetine 30mg CAPSULE.DR PO SCH (07:52)
[2017-07-16] MEDS: LIDOcaine 5% patch TP SCH (07:52)
[2017-07-16] MEDS: heparin, porcine 5000 units/ml vial SQ SCH ×2 (07:53→20:00)
[2017-07-16] MEDS: finasteride 5mg tablet PO SCH (07:53)
[2017-07-16] MEDS ORDERED: levoFLOXACIN 250mg tablet PO SCH (08:00)
[2017-07-16] MEDS ORDERED: cefTRIAXone 1g/NS 100ml IVPB 100 ML IV SCH (08:00)
[2017-07-16] MEDS: fluticasone/vilanterol 200mcg/25mcg inhaler IH SCH (08:00)
[2017-07-16] MEDS: insulin Lispro (HumaLOG) vial - multi-dose SQ SCH ×3 (08:42→19:00)
[2017-07-16] MEDS: levoFLOXACIN-Levaquin 250mg/D5 50 ML IV SCH (08:44)
[2017-07-16 10:00] VITALS: BP 109/55
[2017-07-16 18:00] VITALS: BP 97/49
[2017-07-16 19:00] VITALS: BP 130/52
[2017-07-16] MEDS: insulin glargine (Lantus) pen - multi-dose SQ SCH ×2 (21:00→21:26)
[2017-07-16 21:17] VITALS: BP 134/57
[2017-07-16] MEDS: lactobacillus rhamnosus 10,000 MMU CELLS/CAPSULE PO SCH (21:22)
[2017-07-16] MEDS: traZODone 50mg tablet PO SCH (21:22)
[2017-07-16 22:00] VITALS: BP 118/56
[2017-07-17 00:12] VITALS: BP 129/53
[2017-07-17] MEDS: hydrALAZINE 25 MG tablet PO SCH ×3 (00:14→18:38)
[2017-07-17 06:00] VITALS: BP 159/69
[2017-07-17 06:02] LABS: ALANINE AMINOTRANSFERASE 83 U/L (12-78); ALBUMIN 2.3 G/DL (3.4-5.0); ALBUMIN/GLOBULIN RATIO 0.7 (1.1-1.5); ALKALINE PHOSPHATASE 78 IU/L (46-116); ANION GAP 10 (8-16); ASPARTATE AMINO TRANSFERASE 68 U/L (10-37); BILIRUBIN,TOTAL 0.4 MG/DL (0.1-1.0); BLOOD UREA NITROGEN 42 MG/DL (7-18); BUN/CREATININE RATIO 14.8 (5.4-32.0); CHLORIDE 102 MMOL/L (99-107); CREATININE 2.84 MG/DL (0.60-1.10); GLUCOSE 126 MG/DL (70-104); MAGNESIUM 1.8 MG/DL (1.5-2.4); PHOSPHORUS 3.5 MG/DL (2.3-4.5); SODIUM 137 MMOL/L (135-145); TOTAL CARBON DIOXIDE 24.7 MMOL/L (24-32); TOTAL PROTEIN 5.8 G/DL (6.4-8.2); eGFR 23 ML/MIN
[2017-07-17 07:27] LABS: BASOPHILS % (AUTO) 0.6 % (0-1); EOSINOPHILS # (AUTO) 0.1 X10'3 (0-0.9); EOSINOPHILS % (AUTO) 2.5 % (0-6); HEMATOCRIT 31.4 % (42.0-52.0); HEMOGLOBIN 10.9 g/dl (14.0-17.9); LYMPHOCYTES # (AUTO) 0.8 X10'3 (1.1-4.8); LYMPHOCYTES % (AUTO) 23.2 % (21-51); MEAN CORPUSCULAR HEMOGLOBIN 34.4 PG (27.0-31.0); MEAN CORPUSCULAR HGB CONC 34.6 % (33.0-36.5); MEAN CORPUSCULAR VOLUME 99.5 FL (78-98); MONOCYTES # (AUTO) 0.2 X10'3 (0-0.9); MONOCYTES % (AUTO) 5.6 % (2-12); NEUTROPHILS # (AUTO) 2.5 X10'3 (1.8-7.7); NEUTROPHILS % (AUTO) 68.1 % (42-75); PLATELET COUNT 91 X10'3 (140-440); RED BLOOD COUNT 3.16 X10'6 (4.70-6.10); RED CELL DISTRIBUTION WIDTH 15.9 % (11.5-14.5); WHITE BLOOD COUNT 3.7 X10'3 (4.5-11.0)
[2017-07-17 07:47] LABS: PARTIAL THROMBOPLASTIN TIME 26 SECONDS (22-32); PROTHROMBIN TIME 10.7 SECONDS (9.0-12.0)
[2017-07-17] MEDS: heparin, porcine 5000 units/ml vial SQ SCH ×2 (08:00→20:00)
[2017-07-17] MEDS: LIDOcaine 5% patch TP SCH (08:00)
[2017-07-17] MEDS: albuterol 2.5 MG/3 ML nebule NEB SCH ×4 (08:48→20:51)
[2017-07-17] MEDS: fluticasone/vilanterol 200mcg/25mcg inhaler IH SCH (08:49)
[2017-07-17] MEDS: insulin Lispro (HumaLOG) vial - multi-dose SQ SCH ×4 (09:01→21:08)
[2017-07-17] MEDS: folic acid 1mg tablet PO SCH (09:07)
[2017-07-17] MEDS: aspirin 81mg tablet.DR PO SCH (09:07)
[2017-07-17] MEDS: levoFLOXACIN-Levaquin 250mg/D5 50 ML IV SCH (09:07)
[2017-07-17] MEDS: isosorbide dinitrate 30mg tablet PO SCH ×2 (09:07→20:52)
[2017-07-17] MEDS: folic acid/vitamin B complex w/vitamin C 0.8mg tablet PO SCH (09:07)
[2017-07-17] MEDS: furosemide 40mg tablet PO SCH ×2 (09:08→20:52)
[2017-07-17] MEDS: carVEDilol 12.5mg tablet PO SCH ×2 (09:08→20:52)
[2017-07-17] MEDS: lactobacillus rhamnosus 10,000 MMU CELLS/CAPSULE PO SCH ×2 (09:08→20:52)
[2017-07-17] MEDS: duloxetine 30mg CAPSULE.DR PO SCH (09:08)
[2017-07-17] MEDS: gabapentin 300mg capsule PO SCH ×2 (09:08→20:52)
[2017-07-17] MEDS: HYDROcodone/acetaminophen 10/325mg tab PO PRN ×2 (09:18→18:39)
[2017-07-17] MEDS: pantoprazole 40mg Tablet.DR PO SCH (09:25)
[2017-07-17] MEDS: finasteride 5mg tablet PO SCH (09:25)
[2017-07-17 11:00] VITALS: BP 122/55
[2017-07-17 18:00] VITALS: BP 137/68
[2017-07-17] MEDS: traZODone 50mg tablet PO SCH (20:51)
[2017-07-17] MEDS: insulin glargine (Lantus) pen - multi-dose SQ SCH ×2 (21:00→21:03)
[2017-07-17 22:00] VITALS: BP 117/49
[2017-07-18] MEDS: hydrALAZINE 25 MG tablet PO SCH ×3 (00:33→16:00)
[2017-07-18] MEDS: HYDROcodone/acetaminophen 10/325mg tab PO PRN ×4 (00:38→21:10)
[2017-07-18 07:00] VITALS: BP 169/68
[2017-07-18 07:06] LABS: BASOPHILS % (AUTO) 0.6 % (0-1); EOSINOPHILS # (AUTO) 0.1 X10'3 (0-0.9); EOSINOPHILS % (AUTO) 1.4 % (0-6); HEMATOCRIT 32.7 % (42.0-52.0); HEMOGLOBIN 11.2 g/dl (14.0-17.9); LYMPHOCYTES # (AUTO) 1.2 X10'3 (1.1-4.8); LYMPHOCYTES % (AUTO) 32.6 % (21-51); MEAN CORPUSCULAR HEMOGLOBIN 34.7 PG (27.0-31.0); MEAN CORPUSCULAR HGB CONC 34.3 % (33.0-36.5); MONOCYTES # (AUTO) 0.3 X10'3 (0-0.9); MONOCYTES % (AUTO) 7.1 % (2-12); NEUTROPHILS # (AUTO) 2.1 X10'3 (1.8-7.7); NEUTROPHILS % (AUTO) 58.3 % (42-75); PLATELET COUNT 105 X10'3 (140-440); RED BLOOD COUNT 3.24 X10'6 (4.70-6.10); RED CELL DISTRIBUTION WIDTH 16.2 % (11.5-14.5); WHITE BLOOD COUNT 3.6 X10'3 (4.5-11.0)
[2017-07-18 07:14] LABS: PROTHROMBIN TIME 10.6 SECONDS (9.0-12.0)
[2017-07-18 07:22] LABS: ALANINE AMINOTRANSFERASE 82 U/L (12-78); ALBUMIN 2.6 G/DL (3.4-5.0); ALBUMIN/GLOBULIN RATIO 0.6 (1.1-1.5); ALKALINE PHOSPHATASE 95 IU/L (46-116); ANION GAP 12 (8-16); ASPARTATE AMINO TRANSFERASE 47 U/L (10-37); BILIRUBIN,TOTAL 0.4 MG/DL (0.1-1.0); BLOOD UREA NITROGEN 57 MG/DL (7-18); CALCIUM 8.4 MG/DL (8.5-10.1); CHLORIDE 101 MMOL/L (99-107); CREATININE 3.57 MG/DL (0.60-1.10); GLUCOSE 127 MG/DL (70-104); MAGNESIUM 1.9 MG/DL (1.5-2.4); PHOSPHORUS 4.1 MG/DL (2.3-4.5); POTASSIUM 3.9 MMOL/L (3.5-5.1); SODIUM 139 MMOL/L (135-145); TOTAL CARBON DIOXIDE 25.8 MMOL/L (24-32); TOTAL PROTEIN 6.7 G/DL (6.4-8.2); eGFR 17 ML/MIN
[2017-07-18] MEDS: albuterol 2.5 MG/3 ML nebule NEB SCH ×4 (08:00→20:06)
[2017-07-18] MEDS: LIDOcaine 5% patch TP SCH (08:00)
[2017-07-18] MEDS: isosorbide dinitrate 30mg tablet PO SCH ×2 (08:07→21:07)
[2017-07-18] MEDS: folic acid 1mg tablet PO SCH (08:07)
[2017-07-18] MEDS: aspirin 81mg tablet.DR PO SCH (08:07)
[2017-07-18] MEDS: folic acid/vitamin B complex w/vitamin C 0.8mg tablet PO SCH (08:07)
[2017-07-18] MEDS: duloxetine 30mg CAPSULE.DR PO SCH (08:07)
[2017-07-18] MEDS: carVEDilol 12.5mg tablet PO SCH ×2 (08:08→21:07)
[2017-07-18] MEDS: lactobacillus rhamnosus 10,000 MMU CELLS/CAPSULE PO SCH ×2 (08:08→21:07)
[2017-07-18] MEDS: furosemide 40mg tablet PO SCH ×2 (08:08→21:06)
[2017-07-18] MEDS: gabapentin 300mg capsule PO SCH ×2 (08:09→21:10)
[2017-07-18] MEDS: pantoprazole 40mg Tablet.DR PO SCH (08:09)
[2017-07-18] MEDS: heparin, porcine 5000 units/ml vial SQ SCH ×2 (08:10→21:11)
[2017-07-18] MEDS: finasteride 5mg tablet PO SCH (08:13)
[2017-07-18] MEDS: insulin Lispro (HumaLOG) vial - multi-dose SQ SCH ×2 (09:37→13:45)
[2017-07-18 10:00] VITALS: BP 114/51
[2017-07-18] MEDS: fluticasone/vilanterol 200mcg/25mcg inhaler IH SCH (12:31)
[2017-07-18] MEDS: levoFLOXACIN 250mg tablet PO SCH (13:48)
[2017-07-18 18:00] VITALS: BP 150/85
[2017-07-18] MEDS: ondansetron 4mg rapidly disintigrating tab PO PRN (21:06)
[2017-07-18] MEDS: traZODone 50mg tablet PO SCH (21:07)
[2017-07-18] MEDS: insulin glargine (Lantus) pen - multi-dose SQ SCH (21:13)
[2017-07-18 22:00] VITALS: BP 137/58
[2017-07-19] MEDS: hydrALAZINE 25 MG tablet PO SCH ×3 (00:40→16:11)
[2017-07-19 06:10] LABS: BASOPHILS % (AUTO) 0.6 % (0-1); EOSINOPHILS % (AUTO) 1.5 % (0-6); HEMATOCRIT 30.8 % (42.0-52.0); HEMOGLOBIN 10.6 g/dl (14.0-17.9); LYMPHOCYTES # (AUTO) 0.9 X10'3 (1.1-4.8); LYMPHOCYTES % (AUTO) 32.4 % (21-51); MEAN CORPUSCULAR HEMOGLOBIN 34.6 PG (27.0-31.0); MEAN CORPUSCULAR HGB CONC 34.3 % (33.0-36.5); MEAN CORPUSCULAR VOLUME 100.8 FL (78-98); MEAN PLATELET VOLUME 9.7 FL (7.4-10.4); MONOCYTES # (AUTO) 0.2 X10'3 (0-0.9); MONOCYTES % (AUTO) 5.7 % (2-12); NEUTROPHILS # (AUTO) 1.7 X10'3 (1.8-7.7); NEUTROPHILS % (AUTO) 59.8 % (42-75); PLATELET COUNT 87 X10'3 (140-440); RED BLOOD COUNT 3.06 X10'6 (4.70-6.10); RED CELL DISTRIBUTION WIDTH 15.9 % (11.5-14.5); WHITE BLOOD COUNT 2.9 X10'3 (4.5-11.0)
[2017-07-19 06:14] LABS: PROTHROMBIN TIME 10.6 SECONDS (9.0-12.0)
[2017-07-19 06:31] LABS: ALANINE AMINOTRANSFERASE 69 U/L (12-78); ALBUMIN 2.6 G/DL (3.4-5.0); ALBUMIN/GLOBULIN RATIO 0.7 (1.1-1.5); ALKALINE PHOSPHATASE 105 IU/L (46-116); ANION GAP 10 (8-16); ASPARTATE AMINO TRANSFERASE 42 U/L (10-37); BILIRUBIN,TOTAL 0.3 MG/DL (0.1-1.0); BLOOD UREA NITROGEN 60 MG/DL (7-18); BUN/CREATININE RATIO 16.1 (5.4-32.0); CALCIUM 8.5 MG/DL (8.5-10.1); CHLORIDE 102 MMOL/L (99-107); CREATININE 3.72 MG/DL (0.60-1.10); GLUCOSE 198 MG/DL (70-104); MAGNESIUM 1.8 MG/DL (1.5-2.4); PHOSPHORUS 4.4 MG/DL (2.3-4.5); POTASSIUM 4.3 MMOL/L (3.5-5.1); SODIUM 138 MMOL/L (135-145); TOTAL CARBON DIOXIDE 25.7 MMOL/L (24-32); TOTAL PROTEIN 6.5 G/DL (6.4-8.2); eGFR 17 ML/MIN
[2017-07-19 07:09] LABS: LYMPHOCYTES % (MANUAL) 35 % (21-51); MONOCYTES % (MANUAL) 6 % (2-12); NEUTROPHILS % (MANUAL) 58 % (42-75); PLATELET ESTIMATE DECREASED; SMUDGE CELLS FEW; TOTAL CELLS COUNTED 100
[2017-07-19 07:10] LABS: ANISOCYTOSIS 1+
[2017-07-19 07:11] LABS: METAMYLEOCYTES% (MANUAL) 1 % (0-0)
[2017-07-19] MEDS ORDERED: epoetin 20,000 units/ml inj IV ONE (08:00)
[2017-07-19] MEDS ORDERED: heparin 1,000 units/ml 10ml inj HE ONE ×2 (08:00)
[2017-07-19] MEDS: albuterol 2.5 MG/3 ML nebule NEB SCH ×4 (08:00→19:59)
[2017-07-19] MEDS: heparin, porcine 5000 units/ml vial SQ SCH ×2 (08:00→19:47)
[2017-07-19] MEDS: LIDOcaine 5% patch TP SCH (08:00)
[2017-07-19] MEDS ORDERED: heparin 1,000unit/ml 10ml vial 10 ML IV ONE (08:00)
[2017-07-19] MEDS ORDERED: albumin (human) 25% 100ml IV 100 ML IV PRN (08:00)
[2017-07-19] MEDS: fluticasone/vilanterol 200mcg/25mcg inhaler IH SCH (08:00)
[2017-07-19] MEDS ORDERED: heparin 1,000 units/ml 10ml inj IV ONE (08:00)
[2017-07-19] MEDS ORDERED: heparin 1,000unit/ml 10ml vial 10 ML ONE (08:19)
[2017-07-19] MEDS ORDERED: heparin 1,000 units/ml 10ml inj ICATH ONE (08:20)
[2017-07-19] MEDS ORDERED: LIDOcaine 1%/PF (10mg/ml) 5ml vial ONE (08:20)
[2017-07-19] MEDS ORDERED: fentaNYL/PF 50MCG/1 ML 2ML syringe IV PRN (08:20)
[2017-07-19] MEDS ORDERED: midazolam 2 mg/2 ml injection IV PRN (08:20)
[2017-07-19] MEDS ORDERED: LIDOcaine 1%/PF (10mg/ml) 5ml vial SQ ONE (08:20)
[2017-07-19] MEDS: pantoprazole 40mg Tablet.DR PO SCH (08:39)
[2017-07-19] MEDS: carVEDilol 12.5mg tablet PO SCH ×2 (08:41→19:47)
[2017-07-19] MEDS: duloxetine 30mg CAPSULE.DR PO SCH (08:43)
[2017-07-19] MEDS: lactobacillus rhamnosus 10,000 MMU CELLS/CAPSULE PO SCH (08:43)
[2017-07-19] MEDS: folic acid 1mg tablet PO SCH (08:44)
[2017-07-19] MEDS: isosorbide dinitrate 30mg tablet PO SCH ×2 (08:44→19:34)
[2017-07-19] MEDS: gabapentin 300mg capsule PO SCH ×2 (08:46→19:34)
[2017-07-19] MEDS: aspirin 81mg tablet.DR PO SCH (08:47)
[2017-07-19] MEDS: folic acid/vitamin B complex w/vitamin C 0.8mg tablet PO SCH (08:47)
[2017-07-19] MEDS: furosemide 40mg tablet PO SCH ×2 (08:47→19:47)
[2017-07-19] MEDS: finasteride 5mg tablet PO SCH (08:48)
[2017-07-19] MEDS ORDERED: fentaNYL/PF 50MCG/1 ML 2ML syringe ONE (08:54)
[2017-07-19] MEDS ORDERED: midazolam 2 mg/2 ml injection ONE (08:54)
[2017-07-19 10:00] VITALS: BP 146/69
[2017-07-19] MEDS: HYDROcodone/acetaminophen 10/325mg tab PO PRN (12:18)
[2017-07-19] MEDS: insulin Lispro (HumaLOG) vial - multi-dose SQ SCH ×2 (14:04→19:34)
[2017-07-19] MEDS: levoFLOXACIN 250mg tablet PO SCH (14:11)
[2017-07-19 18:54] VITALS: BP 140/63
[2017-07-19] MEDS ORDERED: diphenhydrAMINE 25mg capsule PO ONE (19:40)
[2017-07-19] MEDS: traZODone 50mg tablet PO SCH (21:00)
[2017-07-19] MEDS: predniSONE 20 mg tablet PO SCH (21:17)
[2017-07-19] MEDS: dextrose ORAL solution 15 GM/59 ML bottle PO PRN ×2 (21:18→21:46)
[2017-07-19 22:00] VITALS: BP 126/61
[2017-07-20] MEDS: insulin glargine (Lantus) pen - multi-dose SQ SCH (00:17)
[2017-07-20] MEDS: hydrALAZINE 25 MG tablet PO SCH ×2 (00:26→08:48)
[2017-07-20 00:27] VITALS: BP 116/54
[2017-07-20 06:00] VITALS: BP 194/82
[2017-07-20] MEDS: fluticasone/vilanterol 200mcg/25mcg inhaler IH SCH (07:42)
[2017-07-20] MEDS: albuterol 2.5 MG/3 ML nebule NEB SCH ×2 (07:42→11:34)
[2017-07-20] MEDS: LIDOcaine 5% patch TP SCH (08:00)
[2017-07-20] MEDS: heparin, porcine 5000 units/ml vial SQ SCH (08:00)
[2017-07-20] MEDS: furosemide 40mg tablet PO SCH (08:48)
[2017-07-20] MEDS: gabapentin 300mg capsule PO SCH (08:48)
[2017-07-20] MEDS: duloxetine 30mg CAPSULE.DR PO SCH (08:48)
[2017-07-20] MEDS: finasteride 5mg tablet PO SCH (08:48)
[2017-07-20] MEDS: isosorbide dinitrate 30mg tablet PO SCH (08:48)
[2017-07-20] MEDS: folic acid/vitamin B complex w/vitamin C 0.8mg tablet PO SCH (08:48)
[2017-07-20] MEDS: folic acid 1mg tablet PO SCH (08:49)
[2017-07-20] MEDS: aspirin 81mg tablet.DR PO SCH (08:49)
[2017-07-20] MEDS: predniSONE 20 mg tablet PO SCH (08:49)
[2017-07-20] MEDS: carVEDilol 12.5mg tablet PO SCH (08:49)
[2017-07-20] MEDS: pantoprazole 40mg Tablet.DR PO SCH (08:51)
[2017-07-20] MEDS: insulin Lispro (HumaLOG) vial - multi-dose SQ SCH ×2 (09:00→13:39)
[2017-07-20] MEDS: HYDROcodone/acetaminophen 10/325mg tab PO PRN ×2 (09:10→14:53)
[2017-07-20 10:00] VITALS: BP 138/67
[2017-07-20] MEDS ORDERED: AMOX-419 PO (14:00)
[2017-07-20 14:25] LABS: BASOPHILS % (AUTO) 0 % (0-1); EOSINOPHILS % (AUTO) 0 % (0-6); HEMATOCRIT 33.5 % (42.0-52.0); HEMOGLOBIN 11.8 g/dl (14.0-17.9); LYMPHOCYTES # (AUTO) 0.5 X10'3 (1.1-4.8); LYMPHOCYTES % (AUTO) 10.2 % (21-51); MEAN CORPUSCULAR HGB CONC 35.2 % (33.0-36.5); MEAN CORPUSCULAR VOLUME 99.3 FL (78-98); MEAN PLATELET VOLUME 8.9 FL (7.4-10.4); MONOCYTES # (AUTO) 0.1 X10'3 (0-0.9); MONOCYTES % (AUTO) 1.9 % (2-12); NEUTROPHILS # (AUTO) 4.7 X10'3 (1.8-7.7); NEUTROPHILS % (AUTO) 87.9 % (42-75); PLATELET COUNT 116 X10'3 (140-440); RED BLOOD COUNT 3.37 X10'6 (4.70-6.10); WHITE BLOOD COUNT 5.4 X10'3 (4.5-11.0)
== END 2017-07-20 16:20 | disposition home or self-care (01) | DRG 314 ==
LOC: ER 17:27 → ED HOLD 22:07 → ORTHO 4S 07-15 08:05
PROVIDERS: ADMIT Internal Medicine Critical Care Medicine; ATTEND Internal Medicine Critical Care Medicine
PROC: 5A1D70Z Performance of Urinary Filtration, Intermittent, Less than 6 Hours Per Day (ICD-10-PCS; principal; 2017-07-15)
PROC: 0JPT3XZ Removal of Tunneled Vascular Access Device from Trunk Subcutaneous Tissue and Fascia, Percutaneous Approach (ICD-10-PCS; 2017-07-16)
PROC: 02PYX3Z Removal of Infusion Device from Great Vessel, External Approach (ICD-10-PCS; 2017-07-16)
PROC: 5A1D70Z Performance of Urinary Filtration, Intermittent, Less than 6 Hours Per Day (ICD-10-PCS; 2017-07-19)
PROC: 0JH63XZ Insertion of Tunneled Vascular Access Device into Chest Subcutaneous Tissue and Fascia, Percutaneous Approach (ICD-10-PCS; 2017-07-19)
PROC: 02H633Z Insertion of Infusion Device into Right Atrium, Percutaneous Approach (ICD-10-PCS; 2017-07-19)
PROC: B244ZZZ Ultrasonography of Right Heart (ICD-10-PCS; 2017-07-19)
DX: T82.7XXA Infection and inflammatory reaction due to other cardiac and vascular devices, implants and grafts, initial encounter (principal); A41.9 Sepsis, unspecified organism; N18.6 End stage renal disease; G93.41 Metabolic encephalopathy; I13.2 Hypertensive heart and chronic kidney disease with heart failure and with stage 5 chronic kidney disease, or end stage renal disease; J18.9 Pneumonia, unspecified organism; J44.0 Chronic obstructive pulmonary disease with (acute) lower respiratory infection; I50.9 Heart failure, unspecified; E11.22 Type 2 diabetes mellitus with diabetic chronic kidney disease; R32 Unspecified urinary incontinence; F41.9 Anxiety disorder, unspecified; R21 Rash and other nonspecific skin eruption; B19.20 Unspecified viral hepatitis C without hepatic coma; F32.9 Major depressive disorder, single episode, unspecified; G89.29 Other chronic pain; M54.9 Dorsalgia, unspecified; K21.9 Gastro-esophageal reflux disease without esophagitis; Y84.8 Other medical procedures as the cause of abnormal reaction of the patient, or of later complication, without mention of misadventure at the time of the procedure; Y95 Nosocomial condition; I25.2 Old myocardial infarction; Z99.2 Dependence on renal dialysis; Z79.4 Long term (current) use of insulin; Z79.82 Long term (current) use of aspirin; Z79.899 Other long term (current) drug therapy; Z82.41 Family history of sudden cardiac death; Z82.49 Family history of ischemic heart disease and other diseases of the circulatory system
CPT/HCPCS: 36415; 36558; 70450; 71045; 76937; 77001; 80053; 81001; 82948; 83605; 83735; 83880; 84100; 84145; 84484; 85025; 85610; 85730; 87040; 87070; 87077; 87088; 87186; 93005; 94640; 94760; 97116; 97161; 97530; 99152; 99153; 99285; A4310; A4620; A6213; A6257; A6449; C1750; C1769; C1894; G0257; J0696; J0885; J1644; J1815; J1956; J2001; J2250; J3010; J3370; J7030; J7512; Q0163

== ENCOUNTER 2017-08-20 17:06 | Emergency (ER) | payer MEDICARE, MEDICAID ==
[~2017-08-20] VITALS: Ht 185.4 cm; Wt 104.5 kg
[~2017-08-20 17:06] MED LIST changes: +DULO-31 PO; -DULO60CA64 PO; -HYDR-3965 PO; -LEVO250T58 PO; +OMEP20TA23 PO; -OMEP20TA5 PO; +ONDA4TAB9 SL; +TRAZ-143 PO
[2017-08-20] MEDS ORDERED: dextrose 5%-normal saline 1,000 ML IV ONE ×2 (18:00→18:05)
[2017-08-20] MEDS ORDERED: ceFAZolin 1GM/D5W- ADD-VANTAGE 50 ML IV ONE (18:00)
[2017-08-20 18:11] LABS: BASOPHILS % (AUTO) 0.2 % (0-1); EOSINOPHILS % (AUTO) 0.9 % (0-6); HEMATOCRIT 31.3 % (42.0-52.0); HEMOGLOBIN 10.8 g/dl (14.0-17.9); LYMPHOCYTES # (AUTO) 0.8 X10'3 (1.1-4.8); LYMPHOCYTES % (AUTO) 16.2 % (21-51); MEAN CORPUSCULAR HEMOGLOBIN 34.5 PG (27.0-31.0); MEAN CORPUSCULAR HGB CONC 34.3 % (33.0-36.5); MEAN CORPUSCULAR VOLUME 100.6 FL (78-98); MEAN PLATELET VOLUME 8.7 FL (7.4-10.4); MONOCYTES # (AUTO) 0.2 X10'3 (0-0.9); MONOCYTES % (AUTO) 3.9 % (2-12); NEUTROPHILS # (AUTO) 3.7 X10'3 (1.8-7.7); NEUTROPHILS % (AUTO) 78.8 % (42-75); PLATELET COUNT 114 X10'3 (140-440); RED BLOOD COUNT 3.11 X10'6 (4.70-6.10); RED CELL DISTRIBUTION WIDTH 15.3 % (11.5-14.5); WHITE BLOOD COUNT 4.7 X10'3 (4.5-11.0)
[2017-08-20 18:18] LABS: INR 1.1 INR; PARTIAL THROMBOPLASTIN TIME 27 SECONDS (22-32); PROTHROMBIN TIME 11.4 SECONDS (9.0-12.0)
[2017-08-20 18:36] LABS: ALANINE AMINOTRANSFERASE 73 U/L (12-78); ALBUMIN 2.7 G/DL (3.4-5.0); ALBUMIN/GLOBULIN RATIO 0.7 (1.1-1.5); ALKALINE PHOSPHATASE 106 IU/L (46-116); ANION GAP 7 (8-16); ASPARTATE AMINO TRANSFERASE 61 U/L (10-37); BILIRUBIN,TOTAL 0.5 MG/DL (0.1-1.0); BLOOD UREA NITROGEN 23 MG/DL (7-18); BUN/CREATININE RATIO 9.3 (5.4-32.0); CALCIUM 8.6 MG/DL (8.5-10.1); CHLORIDE 99 MMOL/L (99-107); CREATININE 2.48 MG/DL (0.60-1.10); GLUCOSE 114 MG/DL (70-104); MAGNESIUM 1.9 MG/DL (1.5-2.4); POTASSIUM 3.6 MMOL/L (3.5-5.1); SODIUM 138 MMOL/L (135-145); TOTAL CARBON DIOXIDE 32.4 MMOL/L (24-32); TOTAL PROTEIN 6.5 G/DL (6.4-8.2); TROPONIN I < 0.04 NG/ML (0.0-0.05); eGFR 26 ML/MIN
[2017-08-20 20:52] LABS: CLARITY,URINE CLEAR (Clear); COLOR,URINE YELLOW (Yellow); GLUCOSE, URINE NEGATIVE (Neg); KETONES,URINE NEGATIVE (Neg); LEUKOCYTE ESTERASE ,URINE NEGATIVE (Neg); NITRITES, URINE NEGATIVE (Neg); OCCULT BLOOD,URINE NEGATIVE (Neg); PROTEIN,URINE 100 mg/dl (Neg)
[2017-08-20 20:53] LABS: UA COLLECTION TYPE VOIDED
[2017-08-20 21:05] LABS: BACTERIA,URINE FEW /HPF (Neg); RBC,URINE 0-2 /HPF (0-2); SQUAMOUS EPITHELIAL CELL,UR FEW /LPF (FEW); WBC,URINE 0-4 /HPF (0-4)
[2017-08-20 22:22] VITALS: BP 179/91
== END 2017-08-20 22:23 | disposition home or self-care (01) ==
LOC: ER 17:06
DX: E11.649 Type 2 diabetes mellitus with hypoglycemia without coma (principal); I11.0 Hypertensive heart disease with heart failure; I50.9 Heart failure, unspecified; I25.2 Old myocardial infarction; J44.9 Chronic obstructive pulmonary disease, unspecified; K21.9 Gastro-esophageal reflux disease without esophagitis; G89.29 Other chronic pain; Z99.2 Dependence on renal dialysis; Z79.4 Long term (current) use of insulin
CPT/HCPCS: 36415; 36556; 71045; 80053; 81001; 82948; 83605; 83735; 84145; 84484; 85025; 85610; 85730; 87040; 93005; 96365; 99285; A6449; C1751; J0690; J7042; A4353

== ENCOUNTER 2017-12-20 20:38 | Inpatient (IN) | payer MEDICARE, MEDICAID ==
[~2017-12-20] VITALS: Ht 182.9 cm; Wt 86.9 kg
[~2017-12-20 20:38] MED LIST changes: -TRAZ-143 PO; +TRAZ-218 PO
[2017-12-20] MEDS ORDERED: nitroGLYCERIN 0.4mg/hour patch TD ONE (20:50)
[2017-12-20] MEDS ORDERED: aspirin 81mg tab.chew PO ONE (20:50)
[2017-12-20 21:49] LABS: BASOPHILS % (AUTO) 0.1 % (0-1); EOSINOPHILS % (AUTO) 0.7 % (0-6); HEMATOCRIT 33.2 % (42.0-52.0); HEMOGLOBIN 11.3 g/dl (14.0-17.9); LYMPHOCYTES % (AUTO) 15.6 % (21-51); MEAN CORPUSCULAR HEMOGLOBIN 33.2 PG (27.0-31.0); MEAN CORPUSCULAR VOLUME 97.8 FL (78-98); MEAN PLATELET VOLUME 9.4 FL (7.4-10.4); MONOCYTES # (AUTO) 0.2 X10'3 (0-0.9); MONOCYTES % (AUTO) 3.8 % (2-12); NEUTROPHILS % (AUTO) 79.8 % (42-75); PLATELET COUNT 107 X10'3 (140-440); RED BLOOD COUNT 3.39 X10'6 (4.70-6.10); RED CELL DISTRIBUTION WIDTH 15.5 % (11.5-14.5); WHITE BLOOD COUNT 6.2 X10'3 (4.5-11.0)
[2017-12-20 22:00] LABS: INR 1.2 INR; PARTIAL THROMBOPLASTIN TIME 26 SECONDS (22-32); PROTHROMBIN TIME 11.9 SECONDS (9.0-12.0)
[2017-12-20 22:20] LABS: ALANINE AMINOTRANSFERASE 34 U/L (12-78); ALBUMIN 2.9 G/DL (3.4-5.0); ALBUMIN/GLOBULIN RATIO 0.8 (1.1-1.5); ALKALINE PHOSPHATASE 85 IU/L (46-116); ANION GAP 8 (8-16); ASPARTATE AMINO TRANSFERASE 36 U/L (10-37); BILIRUBIN,TOTAL 0.6 MG/DL (0.1-1.0); BLOOD UREA NITROGEN 30 MG/DL (7-18); BUN/CREATININE RATIO 11.8 (5.4-32.0); CALCIUM 8.7 MG/DL (8.5-10.1); CHLORIDE 102 MMOL/L (99-107); CREATININE 2.54 MG/DL (0.60-1.10); GLUCOSE 108 MG/DL (70-104); POTASSIUM 4.2 MMOL/L (3.5-5.1); SODIUM 136 MMOL/L (135-145); TOTAL PROTEIN 6.7 G/DL (6.4-8.2); eGFR 26 ML/MIN
[2017-12-20 22:29] LABS: MAGNESIUM 1.7 MG/DL (1.5-2.4)
[2017-12-20] MEDS ORDERED: MESSAGE TO PHARMACY PO ONE (23:30)
[2017-12-20] MEDS ORDERED: ondansetron/PF 4mg/2ml inj IV PRN (23:30)
[2017-12-20] MEDS ORDERED: glucagon, human recombinant 1mg kit SUBCUT PRN (23:30)
[2017-12-20] MEDS ORDERED: nitroGLYCERIN 0.4mg SUBLingual tab SL PRN (23:30)
[2017-12-20] MEDS ORDERED: dextrose 50%-water 50ml dispensing syringe IV PRN ×2 (23:30)
[2017-12-20] MEDS ORDERED: dextrose ORAL solution 15 GM/59 ML bottle PO PRN ×2 (23:30)
[2017-12-20] MEDS ORDERED: ipratropium/albuterol 3ml nebule NEB PRN (23:30)
[2017-12-20] MEDS ORDERED: morphine 4 MG/ML inj SYRINge IV PRN (23:30)
[2017-12-20] MEDS ORDERED: HYDROcodone/acetaminophen 5mg/325mg tablet PO PRN (23:30)
[2017-12-20] MEDS ORDERED: acetaminophen 325mg tablet PO PRN (23:30)
[2017-12-20] MEDS ORDERED: HYDROcodone/acetaminophen 10/325mg tab PO PRN (23:30)
[2017-12-20] MEDS ORDERED: insulin Lispro (HumaLOG) vial - multi-dose SQ SCH (23:30)
[2017-12-20] MEDS ORDERED: furosemide 10 MG/1 ML 10ml inj IV ONE (23:50)
[2017-12-21 00:01] LABS: HEMOGLOBIN A1C 6.5 % (4.5-6.2)
[2017-12-21] MEDS ORDERED: SERT50TA PO (00:23)
[2017-12-21] MEDS ORDERED: LANTUS SQ (00:23)
[2017-12-21] MEDS ORDERED: VENL75TA4 PO (00:23)
[2017-12-21] MEDS ORDERED: ATOR20TA66 PO (00:23)
[2017-12-21] MEDS ORDERED: CALC600T12 PO (00:23)
[2017-12-21 00:30] VITALS: BP 195/96
[2017-12-21] MEDS: labetalol 20mg/4ml (5mg/ml) syringe IV PRN ×2 (00:50→05:46)
[2017-12-21 01:30] VITALS: BP 167/89
[2017-12-21 03:00] VITALS: BP 169/85
[2017-12-21] MEDS ORDERED: clonazePAM 0.5mg tablet PO PRN (04:45)
[2017-12-21] MEDS ORDERED: HYDROcodone/acetaminophen 10/325mg tab PO PRN (04:45)
[2017-12-21] MEDS ORDERED: clonazePAM 0.5mg tablet PO ONE (04:50)
[2017-12-21 05:00] VITALS: BP 186/95
[2017-12-21 06:02] LABS: BASOPHILS % (AUTO) 0.4 % (0-1); EOSINOPHILS % (AUTO) 0.2 % (0-6); HEMATOCRIT 34.2 % (42.0-52.0); HEMOGLOBIN 11.5 g/dl (14.0-17.9); LYMPHOCYTES # (AUTO) 0.8 X10'3 (1.1-4.8); LYMPHOCYTES % (AUTO) 14.6 % (21-51); MEAN CORPUSCULAR HGB CONC 33.5 % (33.0-36.5); MEAN CORPUSCULAR VOLUME 98.3 FL (78-98); MEAN PLATELET VOLUME 10.1 FL (7.4-10.4); MONOCYTES # (AUTO) 0.3 X10'3 (0-0.9); MONOCYTES % (AUTO) 4.7 % (2-12); NEUTROPHILS # (AUTO) 4.6 X10'3 (1.8-7.7); NEUTROPHILS % (AUTO) 80.1 % (42-75); PLATELET COUNT 97 X10'3 (140-440); RED BLOOD COUNT 3.48 X10'6 (4.70-6.10); RED CELL DISTRIBUTION WIDTH 15.2 % (11.5-14.5); WHITE BLOOD COUNT 5.7 X10'3 (4.5-11.0)
[2017-12-21 06:12] LABS: ALANINE AMINOTRANSFERASE 37 U/L (12-78); ALBUMIN/GLOBULIN RATIO 0.8 (1.1-1.5); ALKALINE PHOSPHATASE 81 IU/L (46-116); ANION GAP 7 (8-16); ASPARTATE AMINO TRANSFERASE 33 U/L (10-37); BILIRUBIN,TOTAL 0.7 MG/DL (0.1-1.0); BLOOD UREA NITROGEN 36 MG/DL (7-18); CALCIUM 9.1 MG/DL (8.5-10.1); CHLORIDE 101 MMOL/L (99-107); CREATININE 2.77 MG/DL (0.60-1.10); GLUCOSE 189 MG/DL (70-104); POTASSIUM 4.2 MMOL/L (3.5-5.1); SODIUM 135 MMOL/L (135-145); TOTAL CARBON DIOXIDE 27.5 MMOL/L (24-32); TOTAL PROTEIN 6.8 G/DL (6.4-8.2); eGFR 23 ML/MIN
[2017-12-21 06:16] LABS: MAGNESIUM 1.8 MG/DL (1.5-2.4); PHOSPHORUS 4.3 MG/DL (2.3-4.5)
[2017-12-21] MEDS ORDERED: hydrALAZINE 25 MG tablet PO SCH (08:00)
[2017-12-21] MEDS ORDERED: gabapentin 300mg capsule PO SCH (08:00)
[2017-12-21] MEDS ORDERED: atorvastatin 20mg tablet PO SCH (08:00)
[2017-12-21] MEDS ORDERED: docusate sod 100mg capsule PO SCH (08:00)
[2017-12-21] MEDS ORDERED: sertraline 50mg tablet PO SCH (08:00)
[2017-12-21] MEDS ORDERED: carVEDilol 12.5mg tablet PO SCH (08:00)
[2017-12-21] MEDS ORDERED: venlafaxine XR 75mg capsule (Q24H) PO SCH (08:00)
[2017-12-21] MEDS ORDERED: heparin, porcine 5000 units/ml vial SQ SCH (08:00)
[2017-12-21] MEDS ORDERED: nicotine 14mg patch - 24hr TD SCH (08:00)
[2017-12-21] MEDS ORDERED: calcium acetate 667mg (PhosLO) capsule PO SCH (08:00)
[2017-12-21] MEDS ORDERED: finasteride 5mg tablet PO SCH (08:00)
[2017-12-21] MEDS ORDERED: pantoprazole 40mg Tablet.DR PO SCH (08:00)
[2017-12-21] MEDS ORDERED: aspirin 81mg tablet.DR PO SCH (08:00)
[2017-12-21] MEDS ORDERED: folic acid/vitamin B complex w/vitamin C 0.8mg tablet PO SCH (08:00)
[2017-12-21] MEDS ORDERED: budesonide 0.5mg/2ml UD nebule IH SCH (08:01)
[2017-12-21] MEDS ORDERED: albuterol 2.5 MG/3 ML nebule NEB SCH (08:02)
[2017-12-21 09:16] VITALS: BP 177/93
[2017-12-21] MEDS ORDERED: traZODone 50mg tablet PO SCH (21:00)
[2017-12-21] MEDS ORDERED: insulin glargine (Lantus) pen - multi-dose SQ SCH (21:00)
== END 2017-12-21 10:23 | disposition left against medical advice (07) | DRG 313 ==
LOC: ER 20:38 → ED HOLD 23:28 → EDBEDREQTM 23:38 → PCU 3S 12-21 00:14
PROVIDERS: ADMIT Internal Medicine Critical Care Medicine; ATTEND Internal Medicine Critical Care Medicine
DX: R07.89 Other chest pain (principal); N18.6 End stage renal disease; I13.2 Hypertensive heart and chronic kidney disease with heart failure and with stage 5 chronic kidney disease, or end stage renal disease; E11.22 Type 2 diabetes mellitus with diabetic chronic kidney disease; F12.90 Cannabis use, unspecified, uncomplicated; I25.10 Atherosclerotic heart disease of native coronary artery without angina pectoris; B19.20 Unspecified viral hepatitis C without hepatic coma; F32.9 Major depressive disorder, single episode, unspecified; F41.9 Anxiety disorder, unspecified; G89.29 Other chronic pain; M54.9 Dorsalgia, unspecified; I50.9 Heart failure, unspecified; J44.9 Chronic obstructive pulmonary disease, unspecified; Z53.21 Procedure and treatment not carried out due to patient leaving prior to being seen by health care provider; K21.9 Gastro-esophageal reflux disease without esophagitis; F17.200 Nicotine dependence, unspecified, uncomplicated; Z79.51 Long term (current) use of inhaled steroids; I25.2 Old myocardial infarction; Z79.82 Long term (current) use of aspirin; Z79.899 Other long term (current) drug therapy; Z82.41 Family history of sudden cardiac death; Z82.49 Family history of ischemic heart disease and other diseases of the circulatory system; Z99.2 Dependence on renal dialysis; Z90.49 Acquired absence of other specified parts of digestive tract; Z79.4 Long term (current) use of insulin
CPT/HCPCS: 36415; 71045; 80053; 82948; 83036; 83735; 83880; 84100; 84484; 85025; 85610; 85730; 87070; 93005; 94640; 94760; 99285; A6257; A6258; J1815; J1940; J3490; J7626

== ENCOUNTER 2018-01-06 21:44 | Emergency (ER) | payer MEDICARE, MEDICAID ==
[~2018-01-06] VITALS: Ht 182.9 cm; Wt 90.9 kg
[~2018-01-06 21:44] MED LIST changes: +ATOR20TA66 PO; +CALC600T12 PO; -DULO-31 PO; -FOLI1TAB16 PO; -FURO40TA4 PO; -INSU100I31 SQ; -INSU200I SQ; -ISOS30TA9 PO; +LANTUS SQ; -LIDO700A32 TOP; -ONDA4TAB9 SL; +SERT50TA PO; +VENL75TA4 PO; -[UNRECOGNIZED DRUG - CODE] PO
[2018-01-06] MEDS ORDERED: albuterol 2.5 MG/3 ML nebule NEB ONE (22:25)
[2018-01-06 22:31] LABS: BASOPHILS % (AUTO) 0 % (0-1); EOSINOPHILS # (AUTO) 0.1 X10'3 (0-0.9); EOSINOPHILS % (AUTO) 0.8 % (0-6); HEMOGLOBIN 10.7 g/dl (14.0-17.9); LYMPHOCYTES % (AUTO) 15.3 % (21-51); MEAN CORPUSCULAR HEMOGLOBIN 32.7 PG (27.0-31.0); MEAN CORPUSCULAR HGB CONC 34.4 % (33.0-36.5); MEAN CORPUSCULAR VOLUME 95.1 FL (78-98); MEAN PLATELET VOLUME 9.4 FL (7.4-10.4); MONOCYTES # (AUTO) 0.4 X10'3 (0-0.9); MONOCYTES % (AUTO) 5.2 % (2-12); NEUTROPHILS # (AUTO) 5.4 X10'3 (1.8-7.7); NEUTROPHILS % (AUTO) 78.7 % (42-75); PLATELET COUNT 100 X10'3 (140-440); RED BLOOD COUNT 3.26 X10'6 (4.70-6.10); RED CELL DISTRIBUTION WIDTH 15.9 % (11.5-14.5); WHITE BLOOD COUNT 6.8 X10'3 (4.5-11.0)
[2018-01-06 22:40] LABS: ALANINE AMINOTRANSFERASE 41 U/L (12-78); ALBUMIN 2.9 G/DL (3.4-5.0); ALBUMIN/GLOBULIN RATIO 0.8 (1.1-1.5); ALKALINE PHOSPHATASE 71 IU/L (46-116); ANION GAP 5 (8-16); ASPARTATE AMINO TRANSFERASE 39 U/L (10-37); BLOOD UREA NITROGEN 16 MG/DL (7-18); BUN/CREATININE RATIO 9.1 (5.4-32.0); CHLORIDE 96 MMOL/L (99-107); CREATININE 1.75 MG/DL (0.60-1.10); GLUCOSE 200 MG/DL (70-104); POTASSIUM 4.2 MMOL/L (3.5-5.1); SODIUM 134 MMOL/L (135-145); TOTAL CARBON DIOXIDE 32.9 MMOL/L (24-32); TOTAL PROTEIN 6.6 G/DL (6.4-8.2); eGFR 40 ML/MIN
[2018-01-06 22:48] LABS: MAGNESIUM 1.6 MG/DL (1.5-2.4)
[2018-01-06 22:55] LABS: CALCIUM 8.5 MG/DL (8.5-10.1)
[2018-01-07 01:01] VITALS: BP 158/100
== END 2018-01-07 01:54 | disposition home or self-care (01) ==
LOC: ER 21:45
DX: J90 Pleural effusion, not elsewhere classified (principal); I11.0 Hypertensive heart disease with heart failure; I50.9 Heart failure, unspecified; I25.2 Old myocardial infarction; J44.9 Chronic obstructive pulmonary disease, unspecified; K21.9 Gastro-esophageal reflux disease without esophagitis; E11.9 Type 2 diabetes mellitus without complications; G89.29 Other chronic pain; Z95.5 Presence of coronary angioplasty implant and graft; Z90.49 Acquired absence of other specified parts of digestive tract; Z98.890 Other specified postprocedural states; Z99.2 Dependence on renal dialysis; Z79.82 Long term (current) use of aspirin; Z79.899 Other long term (current) drug therapy; Z79.4 Long term (current) use of insulin; Z99.81 Dependence on supplemental oxygen
CPT/HCPCS: 36415; 71045; 80053; 82948; 83605; 83735; 83880; 84145; 84484; 85025; 87040; 93005; 94640; 94760; 99285

== ENCOUNTER 2018-01-23 10:26 | Inpatient (IN) | payer MEDICARE, MEDICAID ==
[~2018-01-23] VITALS: Ht 182.9 cm; Wt 93.5 kg
[2018-01-23] MEDS ORDERED: normal saline 1000ML IV soln IVB ONE (10:35)
[2018-01-23] MEDS ORDERED: ondansetron/PF 4mg/2ml inj IV ONE (10:35)
[2018-01-23] MEDS ORDERED: dextrose 50%-water 50ml dispensing syringe IV ONE (11:00)
[2018-01-23 11:18] LABS: BASOPHILS % (AUTO) 0.6 % (0-1); EOSINOPHILS # (AUTO) 0.1 X10'3 (0-0.9); EOSINOPHILS % (AUTO) 1.7 % (0-6); HEMATOCRIT 31.7 % (42.0-52.0); HEMOGLOBIN 10.7 g/dl (14.0-17.9); LYMPHOCYTES # (AUTO) 1.6 X10'3 (1.1-4.8); MEAN CORPUSCULAR HEMOGLOBIN 31.9 PG (27.0-31.0); MEAN CORPUSCULAR HGB CONC 33.7 % (33.0-36.5); MEAN CORPUSCULAR VOLUME 94.8 FL (78-98); MEAN PLATELET VOLUME 8.9 FL (7.4-10.4); MONOCYTES # (AUTO) 0.4 X10'3 (0-0.9); MONOCYTES % (AUTO) 6.8 % (2-12); NEUTROPHILS # (AUTO) 3.6 X10'3 (1.8-7.7); NEUTROPHILS % (AUTO) 62.9 % (42-75); PLATELET COUNT 145 X10'3 (140-440); RED BLOOD COUNT 3.35 X10'6 (4.70-6.10); RED CELL DISTRIBUTION WIDTH 15.6 % (11.5-14.5); WHITE BLOOD COUNT 5.8 X10'3 (4.5-11.0)
[2018-01-23 11:42] LABS: INR 1.2 INR; PARTIAL THROMBOPLASTIN TIME 29 SECONDS (22-32); PROTHROMBIN TIME 12.6 SECONDS (9.0-12.0)
[2018-01-23 12:01] LABS: ALANINE AMINOTRANSFERASE 45 U/L (12-78); ALBUMIN 2.3 G/DL (3.4-5.0); ALBUMIN/GLOBULIN RATIO 0.5 (1.1-1.5); ALKALINE PHOSPHATASE 113 IU/L (46-116); ASPARTATE AMINO TRANSFERASE 42 U/L (10-37); BILIRUBIN,TOTAL 0.8 MG/DL (0.1-1.0); BLOOD UREA NITROGEN 46 MG/DL (7-18); BUN/CREATININE RATIO 14.6 (5.4-32.0); CALCIUM 8.4 MG/DL (8.5-10.1); CHLORIDE 94 MMOL/L (99-107); CREATININE 3.16 MG/DL (0.60-1.10); LIPASE 135 U/L (73-393); POTASSIUM 4.5 MMOL/L (3.5-5.1); TOTAL CARBON DIOXIDE 27.8 MMOL/L (24-32); TOTAL PROTEIN 7.1 G/DL (6.4-8.2); eGFR 20 ML/MIN
[2018-01-23 12:07] LABS: ANION GAP 7 (8-16); GLUCOSE 85 MG/DL (70-104); SODIUM 129 MMOL/L (135-145)
[2018-01-23] MEDS ORDERED: nicotine 21mg patch - 24 hr TD ONE (12:40)
[2018-01-23] MEDS ORDERED: ondansetron/PF 4mg/2ml inj IV PRN (14:25)
[2018-01-23] MEDS ORDERED: acetaminophen 325mg tablet PO PRN (14:25)
[2018-01-23] MEDS ORDERED: ipratropium/albuterol 3ml nebule NEB PRN ×2 (14:25→15:35)
[2018-01-23] MEDS ORDERED: furosemide 10 MG/1 ML 10ml inj IV ONE (14:35)
[2018-01-23 15:00] VITALS: BP 155/80
[2018-01-23] MEDS ORDERED: normal saline 1000ml 250 ML IV PRN (17:10)
[2018-01-23] MEDS ORDERED: LIDOcaine 1% (10mg/ml) 2ml vial SQ ONE (17:10)
[2018-01-23 19:00] VITALS: BP 178/76
[2018-01-23] MEDS: heparin, porcine 5000 units/ml vial SQ SCH (21:03)
[2018-01-23] MEDS ORDERED: HYDROcodone/acetaminophen 10/325mg tab PO ONE (22:35)
[2018-01-23 23:00] VITALS: BP 164/73
[2018-01-24 03:00] VITALS: BP 173/90
[2018-01-24 05:37] LABS: URINE AMPHETAMINE SCREEN NEGATIVE (Neg); URINE BARBITUATE SCREEN NEGATIVE (Neg); URINE BENZODIAZEPINES SCREEN NEGATIVE (Neg); URINE CANNABINOID SCREEN POSITIVE (Neg); URINE COCAINE SCREEN NEGATIVE (Neg); URINE METHADONE SCREEN NEGATIVE (Neg); URINE OPIATE SCREEN POSITIVE (Neg); URINE PHENCYCLIDINE SCREEN NEGATIVE (Neg)
[2018-01-24 06:05] LABS: CLARITY,URINE CLEAR (Clear); COLOR,URINE YELLOW (Yellow); GLUCOSE, URINE 100 mg/dl (Neg); KETONES,URINE NEGATIVE (Neg); LEUKOCYTE ESTERASE ,URINE NEGATIVE (Neg); NITRITES, URINE NEGATIVE (Neg); OCCULT BLOOD,URINE TRACE-LYSED (Neg); PROTEIN,URINE 100 mg/dl (Neg); UROBILINOGEN,URINE >=8.0 E.U/dL (0.2-1.0)
[2018-01-24 06:08] LABS: UA COLLECTION TYPE CLN CATCH MIDSTREAM
[2018-01-24 06:15] LABS: BASOPHILS # (AUTO) 0.1 X10'3 (0-0.2); BASOPHILS % (AUTO) 1.2 % (0-1); EOSINOPHILS # (AUTO) 0.1 X10'3 (0-0.9); EOSINOPHILS % (AUTO) 1.9 % (0-6); HEMATOCRIT 32.5 % (42.0-52.0); HEMOGLOBIN 10.9 g/dl (14.0-17.9); LYMPHOCYTES # (AUTO) 1.8 X10'3 (1.1-4.8); LYMPHOCYTES % (AUTO) 33.8 % (21-51); MEAN CORPUSCULAR HEMOGLOBIN 31.5 PG (27.0-31.0); MEAN CORPUSCULAR HGB CONC 33.5 % (33.0-36.5); MEAN CORPUSCULAR VOLUME 94.2 FL (78-98); MEAN PLATELET VOLUME 9.5 FL (7.4-10.4); MONOCYTES # (AUTO) 0.4 X10'3 (0-0.9); MONOCYTES % (AUTO) 7.2 % (2-12); NEUTROPHILS % (AUTO) 55.9 % (42-75); PLATELET COUNT 126 X10'3 (140-440); RED BLOOD COUNT 3.45 X10'6 (4.70-6.10); RED CELL DISTRIBUTION WIDTH 16.3 % (11.5-14.5); WHITE BLOOD COUNT 5.4 X10'3 (4.5-11.0)
[2018-01-24 06:49] LABS: BACTERIA,URINE FEW /HPF (Neg); HYALINE CASTS 0-3 /LPF (NEGATIVE); MUCUS STRANDS FEW /LPF (Neg); RBC,URINE 0-2 /HPF (0-2); SQUAMOUS EPITHELIAL CELL,UR FEW /LPF (FEW); WBC,URINE 0-4 /HPF (0-4)
[2018-01-24 07:00] VITALS: BP 164/73
[2018-01-24] MEDS: heparin, porcine 5000 units/ml vial SQ SCH ×2 (07:25→21:30)
[2018-01-24 07:42] LABS: ALANINE AMINOTRANSFERASE 45 U/L (12-78); ALBUMIN/GLOBULIN RATIO 0.5 (1.1-1.5); ALKALINE PHOSPHATASE 100 IU/L (46-116); ANION GAP 6 (8-16); ASPARTATE AMINO TRANSFERASE 38 U/L (10-37); BILIRUBIN,TOTAL 0.6 MG/DL (0.1-1.0); BLOOD UREA NITROGEN 46 MG/DL (7-18); BUN/CREATININE RATIO 14.6 (5.4-32.0); CALCIUM 7.8 MG/DL (8.5-10.1); CHLORIDE 95 MMOL/L (99-107); CREATININE 3.16 MG/DL (0.60-1.10); GLUCOSE 128 MG/DL (70-104); MAGNESIUM 1.9 MG/DL (1.5-2.4); PHOSPHORUS 4.5 MG/DL (2.3-4.5); POTASSIUM 4.7 MMOL/L (3.5-5.1); SODIUM 130 MMOL/L (135-145); TOTAL CARBON DIOXIDE 29.1 MMOL/L (24-32); TOTAL PROTEIN 6.4 G/DL (6.4-8.2); eGFR 20 ML/MIN
[2018-01-24] MEDS ORDERED: heparin 1,000 units/ml 10ml inj IV ONE (08:00)
[2018-01-24] MEDS ORDERED: LIDOcaine 1% (10mg/ml) 2ml vial SQ ONE (08:00)
[2018-01-24] MEDS ORDERED: normal saline 1000ml 250 ML IV PRN (08:00)
[2018-01-24] MEDS ORDERED: HYDROcodone/acetaminophen 5mg/325mg tablet PO PRN (09:20)
[2018-01-24 11:24] VITALS: BP 155/79
[2018-01-24 15:00] VITALS: BP 184/84
[2018-01-24 19:00] VITALS: BP 189/78
[2018-01-24] MEDS ORDERED: hydrALAZINE 20mg/ml inj. IV ONE (20:55)
[2018-01-24] MEDS: insulin glargine (Lantus) pen - multi-dose SQ SCH ×2 (21:00→22:20)
[2018-01-24] MEDS ORDERED: CALCIUM CARBONATE PO SCH (21:00)
[2018-01-24] MEDS: traZODone 50mg tablet PO SCH (22:17)
[2018-01-24 23:00] VITALS: BP 176/74
[2018-01-24] MEDS: hydrALAZINE 25 MG tablet PO SCH (23:29)
[2018-01-25] VITALS (7 sets, daily range): BP systolic 127–173; BP diastolic 42–77
[2018-01-25 05:44] LABS: EOSINOPHILS % (AUTO) 1.2 % (0-6); HEMATOCRIT 28.5 % (42.0-52.0); HEMOGLOBIN 9.5 g/dl (14.0-17.9); LYMPHOCYTES # (AUTO) 1.4 X10'3 (1.1-4.8); LYMPHOCYTES % (AUTO) 34.6 % (21-51); MEAN CORPUSCULAR HEMOGLOBIN 31.1 PG (27.0-31.0); MEAN CORPUSCULAR HGB CONC 33.5 % (33.0-36.5); MEAN CORPUSCULAR VOLUME 92.9 FL (78-98); MEAN PLATELET VOLUME 8.8 FL (7.4-10.4); MONOCYTES # (AUTO) 0.3 X10'3 (0-0.9); MONOCYTES % (AUTO) 8.2 % (2-12); NEUTROPHILS # (AUTO) 2.2 X10'3 (1.8-7.7); PLATELET COUNT 127 X10'3 (140-440); RED BLOOD COUNT 3.06 X10'6 (4.70-6.10); WHITE BLOOD COUNT 3.9 X10'3 (4.5-11.0)
[2018-01-25 06:06] LABS: ALANINE AMINOTRANSFERASE 47 U/L (12-78); ALBUMIN 2.1 G/DL (3.4-5.0); ALBUMIN/GLOBULIN RATIO 0.5 (1.1-1.5); ALKALINE PHOSPHATASE 97 IU/L (46-116); ANION GAP 5 (8-16); ASPARTATE AMINO TRANSFERASE 40 U/L (10-37); BILIRUBIN,TOTAL 0.7 MG/DL (0.1-1.0); BLOOD UREA NITROGEN 21 MG/DL (7-18); BUN/CREATININE RATIO 9.7 (5.4-32.0); CALCIUM 7.8 MG/DL (8.5-10.1); CHLORIDE 99 MMOL/L (99-107); CREATININE 2.17 MG/DL (0.60-1.10); MAGNESIUM 1.8 MG/DL (1.5-2.4); PHOSPHORUS 2.7 MG/DL (2.3-4.5); POTASSIUM 4.1 MMOL/L (3.5-5.1); SODIUM 133 MMOL/L (135-145); TOTAL CARBON DIOXIDE 29.3 MMOL/L (24-32); TOTAL PROTEIN 6.6 G/DL (6.4-8.2); eGFR 31 ML/MIN
[2018-01-25 06:09] LABS: GLUCOSE 125 MG/DL (70-104)
[2018-01-25] MEDS: pantoprazole 40mg Tablet.DR PO SCH (07:05)
[2018-01-25] MEDS ORDERED: VITAMIN B COMP W C PO SCH (08:00)
[2018-01-25] MEDS ORDERED: VENLAFAXINE HCL PO SCH (08:00)
[2018-01-25] MEDS ORDERED: FOLIC ACID PO SCH (08:00)
[2018-01-25] MEDS ORDERED: CARVEDILOL 25 MG PO SCH (08:00)
[2018-01-25] MEDS ORDERED: non-formulary drug (Omeprazole Magnesium (Prilosec Otc) 1 TAB) PO SCH (08:00)
[2018-01-25] MEDS: calcium acetate 667mg (PhosLO) capsule PO SCH ×3 (08:55→19:26)
[2018-01-25] MEDS: heparin, porcine 5000 units/ml vial SQ SCH ×2 (08:55→19:31)
[2018-01-25] MEDS: carVEDilol 12.5mg tablet PO SCH ×2 (08:55→19:27)
[2018-01-25] MEDS: aspirin 81mg tablet.DR PO SCH (08:56)
[2018-01-25] MEDS: finasteride 5mg tablet PO SCH (08:56)
[2018-01-25] MEDS: venlafaxine XR 75mg capsule (Q24H) PO SCH (08:56)
[2018-01-25] MEDS: hydrALAZINE 25 MG tablet PO SCH ×2 (08:56→16:23)
[2018-01-25] MEDS: gabapentin 300mg capsule PO SCH ×2 (08:56→19:27)
[2018-01-25] MEDS: folic acid/vitamin B complex w/vitamin C 0.8mg tablet PO SCH (08:57)
[2018-01-25] MEDS: sertraline 50mg tablet PO SCH (08:57)
[2018-01-25] MEDS: HYDROcodone/acetaminophen 5mg/325mg tablet PO PRN (15:42)
[2018-01-25] MEDS: traZODone 50mg tablet PO SCH (20:01)
[2018-01-25] MEDS: insulin glargine (Lantus) pen - multi-dose SQ SCH (22:38)
[2018-01-26] VITALS (7 sets, daily range): BP systolic 97–173; BP diastolic 54–101
[2018-01-26] MEDS: hydrALAZINE 25 MG tablet PO SCH ×4 (00:26→23:57)
[2018-01-26 06:01] LABS: BASOPHILS # (AUTO) 0.1 X10'3 (0-0.2); BASOPHILS % (AUTO) 1.6 % (0-1); EOSINOPHILS % (AUTO) 1.2 % (0-6); HEMATOCRIT 27.1 % (42.0-52.0); HEMOGLOBIN 9.2 g/dl (14.0-17.9); LYMPHOCYTES # (AUTO) 1.3 X10'3 (1.1-4.8); LYMPHOCYTES % (AUTO) 33.8 % (21-51); MEAN CORPUSCULAR HEMOGLOBIN 31.5 PG (27.0-31.0); MEAN CORPUSCULAR VOLUME 92.6 FL (78-98); MEAN PLATELET VOLUME 8.1 FL (7.4-10.4); MONOCYTES # (AUTO) 0.2 X10'3 (0-0.9); MONOCYTES % (AUTO) 6.1 % (2-12); NEUTROPHILS # (AUTO) 2.2 X10'3 (1.8-7.7); NEUTROPHILS % (AUTO) 57.3 % (42-75); PLATELET COUNT 115 X10'3 (140-440); RED BLOOD COUNT 2.92 X10'6 (4.70-6.10); RED CELL DISTRIBUTION WIDTH 16.1 % (11.5-14.5); WHITE BLOOD COUNT 3.9 X10'3 (4.5-11.0)
[2018-01-26 06:24] LABS: ALANINE AMINOTRANSFERASE 41 U/L (12-78); ALBUMIN 2.1 G/DL (3.4-5.0); ALBUMIN/GLOBULIN RATIO 0.5 (1.1-1.5); ALKALINE PHOSPHATASE 87 IU/L (46-116); ANION GAP 5 (8-16); ASPARTATE AMINO TRANSFERASE 34 U/L (10-37); BILIRUBIN,TOTAL 0.5 MG/DL (0.1-1.0); BLOOD UREA NITROGEN 31 MG/DL (7-18); CALCIUM 7.8 MG/DL (8.5-10.1); CHLORIDE 98 MMOL/L (99-107); CREATININE 2.58 MG/DL (0.60-1.10); MAGNESIUM 1.8 MG/DL (1.5-2.4); PHOSPHORUS 2.9 MG/DL (2.3-4.5); POTASSIUM 4.7 MMOL/L (3.5-5.1); SODIUM 131 MMOL/L (135-145); TOTAL PROTEIN 6.6 G/DL (6.4-8.2); eGFR 25 ML/MIN
[2018-01-26 06:28] LABS: GLUCOSE 142 MG/DL (70-104)
[2018-01-26] MEDS: pantoprazole 40mg Tablet.DR PO SCH (06:56)
[2018-01-26] MEDS: venlafaxine XR 75mg capsule (Q24H) PO SCH (07:53)
[2018-01-26] MEDS: aspirin 81mg tablet.DR PO SCH (07:53)
[2018-01-26] MEDS: sertraline 50mg tablet PO SCH (07:53)
[2018-01-26] MEDS: finasteride 5mg tablet PO SCH (07:53)
[2018-01-26] MEDS: gabapentin 300mg capsule PO SCH ×2 (07:54→20:01)
[2018-01-26] MEDS: carVEDilol 12.5mg tablet PO SCH ×2 (07:54→20:01)
[2018-01-26] MEDS: calcium acetate 667mg (PhosLO) capsule PO SCH ×3 (07:54→20:01)
[2018-01-26] MEDS: heparin, porcine 5000 units/ml vial SQ SCH ×2 (07:55→20:02)
[2018-01-26] MEDS: HYDROcodone/acetaminophen 5mg/325mg tablet PO PRN ×2 (07:55→20:00)
[2018-01-26] MEDS ORDERED: heparin 1,000unit/ml 10ml vial 10 ML IV ONE (08:00)
[2018-01-26] MEDS: folic acid/vitamin B complex w/vitamin C 0.8mg tablet PO SCH (08:00)
[2018-01-26] MEDS ORDERED: heparin 1,000 units/ml 10ml inj IV ONE (08:00)
[2018-01-26] MEDS ORDERED: normal saline 1000ml 250 ML IV PRN (08:00)
[2018-01-26] MEDS ORDERED: epoetin 20,000 units/ml inj IV ONE (08:00)
[2018-01-26] MEDS ORDERED: LIDOcaine 1% (10mg/ml) 2ml vial SQ ONE (08:00)
[2018-01-26] MEDS: traZODone 50mg tablet PO SCH (20:02)
[2018-01-27] MEDS: insulin glargine (Lantus) pen - multi-dose SQ SCH (00:01)
[2018-01-27 03:00] VITALS: BP 156/62
[2018-01-27 06:00] VITALS: BP 151/64
[2018-01-27 06:27] LABS: EOSINOPHILS % (AUTO) 1.2 % (0-6); HEMATOCRIT 27.4 % (42.0-52.0); HEMOGLOBIN 9.1 g/dl (14.0-17.9); LYMPHOCYTES # (AUTO) 1.5 X10'3 (1.1-4.8); LYMPHOCYTES % (AUTO) 41.3 % (21-51); MEAN CORPUSCULAR HEMOGLOBIN 31.3 PG (27.0-31.0); MEAN CORPUSCULAR HGB CONC 33.1 % (33.0-36.5); MEAN CORPUSCULAR VOLUME 94.7 FL (78-98); MEAN PLATELET VOLUME 8.8 FL (7.4-10.4); MONOCYTES # (AUTO) 0.3 X10'3 (0-0.9); MONOCYTES % (AUTO) 7.9 % (2-12); NEUTROPHILS # (AUTO) 1.7 X10'3 (1.8-7.7); NEUTROPHILS % (AUTO) 48.6 % (42-75); PLATELET COUNT 114 X10'3 (140-440); RED BLOOD COUNT 2.89 X10'6 (4.70-6.10); WHITE BLOOD COUNT 3.6 X10'3 (4.5-11.0)
[2018-01-27 06:47] LABS: ALANINE AMINOTRANSFERASE 42 U/L (12-78); ALBUMIN 2.1 G/DL (3.4-5.0); ALBUMIN/GLOBULIN RATIO 0.5 (1.1-1.5); ALKALINE PHOSPHATASE 92 IU/L (46-116); ANION GAP 5 (8-16); ASPARTATE AMINO TRANSFERASE 34 U/L (10-37); BILIRUBIN,TOTAL 0.5 MG/DL (0.1-1.0); BLOOD UREA NITROGEN 26 MG/DL (7-18); BUN/CREATININE RATIO 10.8 (5.4-32.0); CALCIUM 8.3 MG/DL (8.5-10.1); CHLORIDE 98 MMOL/L (99-107); CREATININE 2.41 MG/DL (0.60-1.10); MAGNESIUM 1.8 MG/DL (1.5-2.4); PHOSPHORUS 2.7 MG/DL (2.3-4.5); POTASSIUM 5.1 MMOL/L (3.5-5.1); SODIUM 132 MMOL/L (135-145); TOTAL CARBON DIOXIDE 29.5 MMOL/L (24-32); TOTAL PROTEIN 6.7 G/DL (6.4-8.2); eGFR 27 ML/MIN
[2018-01-27 06:50] LABS: GLUCOSE 140 MG/DL (70-104)
[2018-01-27] MEDS: calcium acetate 667mg (PhosLO) capsule PO SCH (07:45)
[2018-01-27] MEDS: heparin, porcine 5000 units/ml vial SQ SCH (07:45)
[2018-01-27] MEDS: aspirin 81mg tablet.DR PO SCH (07:47)
[2018-01-27] MEDS: folic acid/vitamin B complex w/vitamin C 0.8mg tablet PO SCH (07:47)
[2018-01-27] MEDS: venlafaxine XR 75mg capsule (Q24H) PO SCH (07:48)
[2018-01-27] MEDS: gabapentin 300mg capsule PO SCH (07:50)
[2018-01-27] MEDS: sertraline 50mg tablet PO SCH (07:53)
[2018-01-27] MEDS: finasteride 5mg tablet PO SCH (07:53)
[2018-01-27] MEDS: pantoprazole 40mg Tablet.DR PO SCH (07:59)
[2018-01-27] MEDS: hydrALAZINE 25 MG tablet PO SCH (07:59)
[2018-01-27] MEDS: carVEDilol 12.5mg tablet PO SCH (07:59)
[2018-01-27 11:00] VITALS: BP 125/79
[2018-01-27] MEDS: HYDROcodone/acetaminophen 5mg/325mg tablet PO PRN (11:41)
[2018-01-28] MEDS ORDERED: LIDOcaine 1% (10mg/ml) 2ml vial SQ ONE (08:00)
[2018-01-28] MEDS ORDERED: epoetin 20,000 units/ml inj IV ONE (08:00)
[2018-01-28] MEDS ORDERED: heparin 1,000unit/ml 10ml vial 10 ML IV ONE (08:00)
[2018-01-28] MEDS ORDERED: normal saline 1000ml 250 ML IV PRN (08:00)
== END 2018-01-27 14:44 | disposition home or self-care (01) | DRG 291 ==
LOC: ER 10:27 → ED HOLD 14:21 → PCU 3S 15:30
PROVIDERS: ADMIT Internal Medicine Critical Care Medicine
PROC: 5A1D70Z Performance of Urinary Filtration, Intermittent, Less than 6 Hours Per Day (ICD-10-PCS; 2018-01-23)
PROC: 5A1D70Z Performance of Urinary Filtration, Intermittent, Less than 6 Hours Per Day (ICD-10-PCS; 2018-01-24)
PROC: 5A1D70Z Performance of Urinary Filtration, Intermittent, Less than 6 Hours Per Day (ICD-10-PCS; principal; 2018-01-26)
DX: I13.2 Hypertensive heart and chronic kidney disease with heart failure and with stage 5 chronic kidney disease, or end stage renal disease (principal); I50.43 Acute on chronic combined systolic (congestive) and diastolic (congestive) heart failure; N18.6 End stage renal disease; E87.1 Hypo-osmolality and hyponatremia; J44.1 Chronic obstructive pulmonary disease with (acute) exacerbation; Z99.2 Dependence on renal dialysis; M48.061 Spinal stenosis, lumbar region without neurogenic claudication; E11.22 Type 2 diabetes mellitus with diabetic chronic kidney disease; B19.20 Unspecified viral hepatitis C without hepatic coma; F32.9 Major depressive disorder, single episode, unspecified; F41.9 Anxiety disorder, unspecified; M54.5 Low back pain; E11.649 Type 2 diabetes mellitus with hypoglycemia without coma; G89.29 Other chronic pain; K21.9 Gastro-esophageal reflux disease without esophagitis; M48.00 Spinal stenosis, site unspecified; I25.2 Old myocardial infarction; Z91.15 Patient's noncompliance with renal dialysis; Z79.899 Other long term (current) drug therapy; Z79.4 Long term (current) use of insulin; Z79.82 Long term (current) use of aspirin; Z87.891 Personal history of nicotine dependence; Z82.41 Family history of sudden cardiac death; Z82.49 Family history of ischemic heart disease and other diseases of the circulatory system
CPT/HCPCS: 36415; 71045; 80053; 80305; 81001; 82948; 83036; 83605; 83690; 83735; 83880; 84100; 84145; 84484; 85025; 85610; 85730; 87040; 87070; 87077; 87185; 87186; 90935; 93005; 94760; 96374; 96375; 99285; A4565; A6402; G0257; J0360; J0885; J1644; J1815; J2405; J3490; J7030

== ENCOUNTER 2018-02-28 01:59 | Inpatient (IN) | payer MEDICARE, MEDICAID ==
[~2018-02-28] VITALS: Ht 182.9 cm; Wt 76.0 kg
[2018-02-28] VITALS (7 sets, daily range): BP systolic 140–184; BP diastolic 60–88
[~2018-02-28 01:59] MED LIST changes: -ALBU18HF2 IH; -ATOR20TA66 PO; +HYDR-4353 PO; -HYDR-565 PO; -MOME13HF INH
[2018-02-28] MEDS ORDERED: albuterol 2.5 MG/3 ML nebule NEB ONE (02:30)
[2018-02-28] MEDS ORDERED: ondansetron/PF 4mg/2ml inj IV ONE (04:20)
[2018-02-28 04:23] LABS: BASOPHILS % (AUTO) 0.4 % (0-1); EOSINOPHILS % (AUTO) 0.8 % (0-6); HEMATOCRIT 34.2 % (42.0-52.0); HEMOGLOBIN 10.9 g/dl (14.0-17.9); LYMPHOCYTES # (AUTO) 1.9 X10'3 (1.1-4.8); MEAN CORPUSCULAR HEMOGLOBIN 30.4 PG (27.0-31.0); MEAN CORPUSCULAR HGB CONC 31.7 % (33.0-36.5); MEAN CORPUSCULAR VOLUME 95.8 FL (78-98); MEAN PLATELET VOLUME 8.8 FL (7.4-10.4); MONOCYTES # (AUTO) 0.3 X10'3 (0-0.9); MONOCYTES % (AUTO) 6.3 % (2-12); NEUTROPHILS # (AUTO) 2.7 X10'3 (1.8-7.7); NEUTROPHILS % (AUTO) 54.5 % (42-75); PLATELET COUNT 121 X10'3 (140-440); RED BLOOD COUNT 3.57 X10'6 (4.70-6.10); RED CELL DISTRIBUTION WIDTH 18.6 % (11.5-14.5)
[2018-02-28 04:33] LABS: ALANINE AMINOTRANSFERASE 38 U/L (12-78); ALBUMIN 2.1 G/DL (3.4-5.0); ALBUMIN/GLOBULIN RATIO 0.5 (1.1-1.5); ALKALINE PHOSPHATASE 159 IU/L (46-116); ANION GAP 6 (8-16); ASPARTATE AMINO TRANSFERASE 38 U/L (10-37); BILIRUBIN,TOTAL 0.5 MG/DL (0.1-1.0); BLOOD UREA NITROGEN 51 MG/DL (7-18); BUN/CREATININE RATIO 19.2 (5.4-32.0); CALCIUM 7.5 MG/DL (8.5-10.1); CHLORIDE 101 MMOL/L (99-107); CREATININE 2.66 MG/DL (0.60-1.10); INR 1.2 INR; PARTIAL THROMBOPLASTIN TIME 24 SECONDS (22-32); POTASSIUM 4.1 MMOL/L (3.5-5.1); SODIUM 134 MMOL/L (135-145); TOTAL CARBON DIOXIDE 27.2 MMOL/L (24-32); TOTAL PROTEIN 6.5 G/DL (6.4-8.2); eGFR 24 ML/MIN
[2018-02-28 04:34] LABS: GLUCOSE 201 MG/DL (70-104)
[2018-02-28 04:40] LABS: PHOSPHORUS 3.5 MG/DL (2.3-4.5)
[2018-02-28] MEDS ORDERED: dextrose 50%-water 50ml dispensing syringe IV PRN ×2 (05:35)
[2018-02-28] MEDS ORDERED: MESSAGE TO PHARMACY PO ONE (05:35)
[2018-02-28] MEDS ORDERED: diphenhydrAMINE 25mg capsule PO PRN (05:35)
[2018-02-28] MEDS ORDERED: dextrose ORAL solution 15 GM/59 ML bottle PO PRN ×2 (05:35)
[2018-02-28] MEDS ORDERED: glucagon, human recombinant 1mg kit SUBCUT PRN (05:35)
[2018-02-28] MEDS ORDERED: ondansetron/PF 4mg/2ml inj IV PRN (05:35)
[2018-02-28] MEDS ORDERED: acetaminophen 325mg tablet PO PRN (05:35)
[2018-02-28] MEDS: carVEDilol 12.5mg tablet PO SCH ×2 (07:02→20:00)
[2018-02-28 07:47] LABS: ANISOCYTOSIS 2+; PLATELET ESTIMATE DECREASED
[2018-02-28] MEDS ORDERED: gabapentin 300mg capsule PO SCH (08:00)
[2018-02-28] MEDS ORDERED: calcium acetate 667mg (PhosLO) capsule PO SCH (08:00)
[2018-02-28] MEDS ORDERED: epoetin 20,000 units/ml inj IV ONE (08:25)
[2018-02-28] MEDS ORDERED: albumin (human) 25% 100ml IV 100 ML IV PRN (08:25)
[2018-02-28] MEDS: docusate sod 100mg capsule PO SCH ×3 (08:53→20:49)
[2018-02-28] MEDS: venlafaxine XR 75mg capsule (Q24H) PO SCH (08:53)
[2018-02-28] MEDS: hydrALAZINE 25 MG tablet PO SCH ×2 (08:53→16:46)
[2018-02-28] MEDS: aspirin 81mg tablet.DR PO SCH (08:53)
[2018-02-28] MEDS: sertraline 50mg tablet PO SCH (08:54)
[2018-02-28] MEDS: pantoprazole 40mg Tablet.DR PO SCH (08:54)
[2018-02-28] MEDS: heparin, porcine 5000 units/ml vial SQ SCH ×2 (08:55→20:49)
[2018-02-28] MEDS: finasteride 5mg tablet PO SCH (11:20)
[2018-02-28] MEDS: folic acid/vitamin B complex w/vitamin C 0.8mg tablet PO SCH (11:20)
[2018-02-28] MEDS ORDERED: LIDOcaine 1%/PF 5ML 10 MG/ML VIAL ONE (13:44)
[2018-02-28] MEDS: insulin Lispro (HumaLOG) vial - multi-dose SQ SCH (14:20)
[2018-02-28 15:03] LABS: BFSOURCE RIGHT PLEURAL FLD; PLEURAL FLUID PH 7.406 (7.63-7.65)
[2018-02-28 15:29] LABS: GLUCOSE,BODY FLUID 225 MG/DL; LDH,BODY FLUID 58 U/L; TOTAL PROTEIN,BODY FLUID 2.1 G/DL
[2018-02-28 15:37] LABS: BASOPHILS,BODY FLUID 1 %; BF MESOTHELIAL CELLS FEW; BF RBC COUNT 83 /CU MM; BF WBC COUNT 59 /CU MM (0-1000); BFAPPEAR HAZY; BFCOLOR YELLOW; BFVOLUME 56 ML; LYMPHOCYTES,BODY FLUID 44 %; MONOCYTES,BODY FLUID 47 %; NEUTROPHILS,BODY FLUID 8 %
[2018-02-28] MEDS: gabapentin 300mg capsule PO SCH (20:49)
[2018-02-28] MEDS: traZODone 50mg tablet PO SCH (20:49)
[2018-02-28] MEDS: calcium acetate 667mg (PhosLO) capsule PO SCH (20:49)
[2018-02-28] MEDS: HYDROcodone/acetaminophen 10/325mg tab PO PRN (20:59)
[2018-02-28] MEDS ORDERED: insulin glargine (Lantus) pen - multi-dose SQ SCH ×2 (21:00)
[2018-03-01] VITALS: BP 140/55
[2018-03-01] MEDS: hydrALAZINE 25 MG tablet PO SCH ×3 (00:46→16:42)
[2018-03-01 05:30] LABS: BASOPHILS % (AUTO) 0.6 % (0-1); EOSINOPHILS % (AUTO) 0.8 % (0-6); HEMATOCRIT 31.3 % (42.0-52.0); HEMOGLOBIN 10.1 g/dl (14.0-17.9); LYMPHOCYTES # (AUTO) 1.9 X10'3 (1.1-4.8); LYMPHOCYTES % (AUTO) 45.2 % (21-51); MEAN CORPUSCULAR HGB CONC 32.3 % (33.0-36.5); MEAN PLATELET VOLUME 8.8 FL (7.4-10.4); MONOCYTES # (AUTO) 0.3 X10'3 (0-0.9); MONOCYTES % (AUTO) 6.6 % (2-12); NEUTROPHILS % (AUTO) 46.8 % (42-75); PLATELET COUNT 114 X10'3 (140-440); RED BLOOD COUNT 3.26 X10'6 (4.70-6.10); RED CELL DISTRIBUTION WIDTH 18.8 % (11.5-14.5); WHITE BLOOD COUNT 4.3 X10'3 (4.5-11.0)
[2018-03-01 06:06] LABS: ALANINE AMINOTRANSFERASE 35 U/L (12-78); ALBUMIN/GLOBULIN RATIO 0.5 (1.1-1.5); ALKALINE PHOSPHATASE 126 IU/L (46-116); ANION GAP 6 (8-16); ASPARTATE AMINO TRANSFERASE 39 U/L (10-37); BILIRUBIN,TOTAL 0.5 MG/DL (0.1-1.0); BLOOD UREA NITROGEN 28 MG/DL (7-18); BUN/CREATININE RATIO 15.6 (5.4-32.0); CHLORIDE 103 MMOL/L (99-107); CREATININE 1.79 MG/DL (0.60-1.10); MAGNESIUM 1.8 MG/DL (1.5-2.4); PHOSPHORUS 2.5 MG/DL (2.3-4.5); POTASSIUM 4.2 MMOL/L (3.5-5.1); SODIUM 138 MMOL/L (135-145); TOTAL CARBON DIOXIDE 29.3 MMOL/L (24-32); TOTAL PROTEIN 6.2 G/DL (6.4-8.2); eGFR 39 ML/MIN
[2018-03-01 06:08] LABS: GLUCOSE 80 MG/DL (70-104)
[2018-03-01 06:26] LABS: ANISOCYTOSIS 2+; PLATELET ESTIMATE NORMAL
[2018-03-01 07:25] VITALS: BP 150/53
[2018-03-01] MEDS: docusate sod 100mg capsule PO SCH ×2 (08:00→19:22)
[2018-03-01 08:23] LABS: C DIFF ANTIGEN NEGATIVE (NEGATIVE); C DIFF SPECIMEN=DIARRHEA? ACCEPTABLE; C DIFFICILE TOXINS A&B NEGATIVE (Neg)
[2018-03-01] MEDS: folic acid/vitamin B complex w/vitamin C 0.8mg tablet PO SCH (09:01)
[2018-03-01] MEDS: aspirin 81mg tablet.DR PO SCH (09:01)
[2018-03-01] MEDS: carVEDilol 12.5mg tablet PO SCH ×2 (09:01→20:12)
[2018-03-01] MEDS: gabapentin 300mg capsule PO SCH ×2 (09:02→20:12)
[2018-03-01] MEDS: venlafaxine XR 75mg capsule (Q24H) PO SCH (09:02)
[2018-03-01] MEDS: calcium acetate 667mg (PhosLO) capsule PO SCH ×3 (09:02→20:12)
[2018-03-01] MEDS: pantoprazole 40mg Tablet.DR PO SCH (09:03)
[2018-03-01] MEDS: sertraline 50mg tablet PO SCH (09:03)
[2018-03-01] MEDS: finasteride 5mg tablet PO SCH (09:03)
[2018-03-01] MEDS: heparin, porcine 5000 units/ml vial SQ SCH ×2 (09:04→20:12)
[2018-03-01] MEDS: HYDROcodone/acetaminophen 10/325mg tab PO PRN ×2 (11:17→16:42)
[2018-03-01 12:05] LABS: CLARITY,URINE CLEAR (Clear); COLOR,URINE YELLOW (Yellow); GLUCOSE, URINE NEGATIVE (Neg); KETONES,URINE NEGATIVE (Neg); LEUKOCYTE ESTERASE ,URINE NEGATIVE (Neg); NITRITES, URINE NEGATIVE (Neg); OCCULT BLOOD,URINE TRACE-INTACT (Neg); PROTEIN,URINE >=300 mg/dl (Neg); UROBILINOGEN,URINE 0.2 E.U/dL (0.2-1.0)
[2018-03-01 12:11] LABS: UA COLLECTION TYPE NON-SPECIFIED
[2018-03-01 12:32] VITALS: BP 176/78
[2018-03-01 12:32] LABS: BACTERIA,URINE FEW /HPF (Neg); MUCUS STRANDS FEW /LPF (Neg); SPERM FEW /HPF (NEGATIVE); SQUAMOUS EPITHELIAL CELL,UR FEW /LPF (FEW); WBC,URINE NONE SEEN /HPF (0-4)
[2018-03-01] MEDS: insulin Lispro (HumaLOG) vial - multi-dose SQ SCH ×2 (13:15→19:08)
[2018-03-01 20:00] VITALS: BP 143/68
[2018-03-01] MEDS: traZODone 50mg tablet PO SCH (20:12)
[2018-03-01] MEDS: insulin glargine (Lantus) pen - multi-dose SQ SCH (21:24)
[2018-03-02] VITALS: BP 143/70
[2018-03-02] MEDS: hydrALAZINE 25 MG tablet PO SCH ×3 (00:46→15:34)
[2018-03-02] MEDS: HYDROcodone/acetaminophen 10/325mg tab PO PRN ×3 (00:46→22:53)
[2018-03-02 05:37] LABS: BASOPHILS % (AUTO) 0.6 % (0-1); EOSINOPHILS # (AUTO) 0.1 X10'3 (0-0.9); HEMATOCRIT 33.1 % (42.0-52.0); HEMOGLOBIN 10.7 g/dl (14.0-17.9); LYMPHOCYTES # (AUTO) 2.4 X10'3 (1.1-4.8); MEAN CORPUSCULAR HEMOGLOBIN 31.1 PG (27.0-31.0); MEAN CORPUSCULAR HGB CONC 32.2 % (33.0-36.5); MEAN CORPUSCULAR VOLUME 96.8 FL (78-98); MEAN PLATELET VOLUME 8.9 FL (7.4-10.4); MONOCYTES # (AUTO) 0.3 X10'3 (0-0.9); MONOCYTES % (AUTO) 6.6 % (2-12); NEUTROPHILS # (AUTO) 2.3 X10'3 (1.8-7.7); NEUTROPHILS % (AUTO) 44.8 % (42-75); PLATELET COUNT 114 X10'3 (140-440); RED BLOOD COUNT 3.42 X10'6 (4.70-6.10); RED CELL DISTRIBUTION WIDTH 18.6 % (11.5-14.5); WHITE BLOOD COUNT 5.1 X10'3 (4.5-11.0)
[2018-03-02 05:46] LABS: ALANINE AMINOTRANSFERASE 36 U/L (12-78); ALBUMIN 2.1 G/DL (3.4-5.0); ALBUMIN/GLOBULIN RATIO 0.5 (1.1-1.5); ALKALINE PHOSPHATASE 131 IU/L (46-116); ANION GAP 6 (8-16); ASPARTATE AMINO TRANSFERASE 34 U/L (10-37); BILIRUBIN,TOTAL 0.5 MG/DL (0.1-1.0); BLOOD UREA NITROGEN 33 MG/DL (7-18); BUN/CREATININE RATIO 13.9 (5.4-32.0); CALCIUM 7.8 MG/DL (8.5-10.1); CHLORIDE 97 MMOL/L (99-107); CREATININE 2.38 MG/DL (0.60-1.10); MAGNESIUM 1.8 MG/DL (1.5-2.4); PHOSPHORUS 3.3 MG/DL (2.3-4.5); POTASSIUM 4.8 MMOL/L (3.5-5.1); SODIUM 131 MMOL/L (135-145); TOTAL PROTEIN 6.6 G/DL (6.4-8.2); eGFR 28 ML/MIN
[2018-03-02 05:49] LABS: GLUCOSE 91 MG/DL (70-104)
[2018-03-02 06:03] LABS: ANISOCYTOSIS 2+; PLATELET ESTIMATE DECREASED
[2018-03-02 07:30] VITALS: BP 136/61
[2018-03-02] MEDS: docusate sod 100mg capsule PO SCH ×2 (08:00→19:24)
[2018-03-02] MEDS: carVEDilol 12.5mg tablet PO SCH ×2 (08:00→19:24)
[2018-03-02] MEDS ORDERED: epoetin 20,000 units/ml inj IV ONE (08:00)
[2018-03-02] MEDS ORDERED: heparin 1,000 units/ml 10ml inj IV ONE (08:00)
[2018-03-02] MEDS ORDERED: normal saline 1000ml 250 ML IV PRN (08:00)
[2018-03-02] MEDS ORDERED: LIDOcaine 1% (10mg/ml) 2ml vial SQ ONE (08:00)
[2018-03-02] MEDS: aspirin 81mg tablet.DR PO SCH (08:44)
[2018-03-02] MEDS: venlafaxine XR 75mg capsule (Q24H) PO SCH (08:44)
[2018-03-02] MEDS: folic acid/vitamin B complex w/vitamin C 0.8mg tablet PO SCH (08:44)
[2018-03-02] MEDS: calcium acetate 667mg (PhosLO) capsule PO SCH ×3 (08:45→22:50)
[2018-03-02] MEDS: finasteride 5mg tablet PO SCH (08:45)
[2018-03-02] MEDS: pantoprazole 40mg Tablet.DR PO SCH (08:45)
[2018-03-02] MEDS: gabapentin 300mg capsule PO SCH ×2 (08:45→19:24)
[2018-03-02] MEDS: sertraline 50mg tablet PO SCH (08:46)
[2018-03-02] MEDS: heparin, porcine 5000 units/ml vial SQ SCH ×2 (08:53→19:24)
[2018-03-02 11:00] VITALS: BP 133/55
[2018-03-02] MEDS: insulin Lispro (HumaLOG) vial - multi-dose SQ SCH ×2 (13:42→19:14)
[2018-03-02 20:00] VITALS: BP 148/63
[2018-03-02] MEDS: insulin glargine (Lantus) pen - multi-dose SQ SCH (22:47)
[2018-03-02] MEDS: traZODone 50mg tablet PO SCH (22:50)
[2018-03-03] VITALS: BP 167/79
[2018-03-03] MEDS ORDERED: albuterol 2.5 MG/3 ML nebule NEB PRN (00:40)
[2018-03-03] MEDS: hydrALAZINE 25 MG tablet PO SCH ×3 (01:00→16:54)
[2018-03-03 05:57] LABS: BASOPHILS % (AUTO) 0.8 % (0-1); EOSINOPHILS % (AUTO) 0.5 % (0-6); HEMATOCRIT 33.7 % (42.0-52.0); HEMOGLOBIN 10.9 g/dl (14.0-17.9); LYMPHOCYTES % (AUTO) 43.6 % (21-51); MEAN CORPUSCULAR HEMOGLOBIN 31.2 PG (27.0-31.0); MEAN CORPUSCULAR HGB CONC 32.5 % (33.0-36.5); MEAN CORPUSCULAR VOLUME 95.9 FL (78-98); MEAN PLATELET VOLUME 9.1 FL (7.4-10.4); MONOCYTES # (AUTO) 0.3 X10'3 (0-0.9); MONOCYTES % (AUTO) 5.9 % (2-12); NEUTROPHILS # (AUTO) 2.2 X10'3 (1.8-7.7); NEUTROPHILS % (AUTO) 49.2 % (42-75); PLATELET COUNT 125 X10'3 (140-440); RED BLOOD COUNT 3.51 X10'6 (4.70-6.10); RED CELL DISTRIBUTION WIDTH 18.5 % (11.5-14.5); WHITE BLOOD COUNT 4.5 X10'3 (4.5-11.0)
[2018-03-03 06:09] LABS: ALANINE AMINOTRANSFERASE 36 U/L (12-78); ALBUMIN 2.1 G/DL (3.4-5.0); ALBUMIN/GLOBULIN RATIO 0.5 (1.1-1.5); ALKALINE PHOSPHATASE 129 IU/L (46-116); ANION GAP 6 (8-16); ASPARTATE AMINO TRANSFERASE 39 U/L (10-37); BILIRUBIN,TOTAL 0.4 MG/DL (0.1-1.0); BLOOD UREA NITROGEN 30 MG/DL (7-18); BUN/CREATININE RATIO 14.6 (5.4-32.0); CALCIUM 8.3 MG/DL (8.5-10.1); CHLORIDE 99 MMOL/L (99-107); CREATININE 2.05 MG/DL (0.60-1.10); MAGNESIUM 1.7 MG/DL (1.5-2.4); PHOSPHORUS 2.8 MG/DL (2.3-4.5); POTASSIUM 4.7 MMOL/L (3.5-5.1); SODIUM 133 MMOL/L (135-145); TOTAL CARBON DIOXIDE 27.9 MMOL/L (24-32); TOTAL PROTEIN 6.5 G/DL (6.4-8.2); eGFR 33 ML/MIN
[2018-03-03 06:12] LABS: GLUCOSE 120 MG/DL (70-104)
[2018-03-03 06:35] LABS: ANISOCYTOSIS 2+; PLATELET ESTIMATE DECREASED
[2018-03-03 07:30] VITALS: BP 139/70
[2018-03-03] MEDS: venlafaxine XR 75mg capsule (Q24H) PO SCH (09:03)
[2018-03-03] MEDS: folic acid/vitamin B complex w/vitamin C 0.8mg tablet PO SCH (09:03)
[2018-03-03] MEDS: aspirin 81mg tablet.DR PO SCH (09:03)
[2018-03-03] MEDS: docusate sod 100mg capsule PO SCH (09:03)
[2018-03-03] MEDS: calcium acetate 667mg (PhosLO) capsule PO SCH ×2 (09:03→12:54)
[2018-03-03] MEDS: gabapentin 300mg capsule PO SCH (09:03)
[2018-03-03] MEDS: sertraline 50mg tablet PO SCH (09:04)
[2018-03-03] MEDS: pantoprazole 40mg Tablet.DR PO SCH (09:04)
[2018-03-03] MEDS: heparin, porcine 5000 units/ml vial SQ SCH (09:04)
[2018-03-03] MEDS: carVEDilol 12.5mg tablet PO SCH (09:04)
[2018-03-03] MEDS: insulin Lispro (HumaLOG) vial - multi-dose SQ SCH ×3 (09:09→18:30)
[2018-03-03] MEDS: finasteride 5mg tablet PO SCH (09:53)
[2018-03-03 11:39] VITALS: BP 158/68
[2018-03-03] MEDS ORDERED: GABA300C PO (15:32)
== END 2018-03-03 18:50 | disposition home or self-care (01) | DRG 70 ==
LOC: ER 02:00 → ED HOLD 05:32 → SUR 3N 07:20
PROVIDERS: ATTEND Internal Medicine Critical Care Medicine
PROC: 5A1D70Z Performance of Urinary Filtration, Intermittent, Less than 6 Hours Per Day (ICD-10-PCS; 2018-02-28)
PROC: 0W993ZZ Drainage of Right Pleural Cavity, Percutaneous Approach (ICD-10-PCS; 2018-02-28)
PROC: 3E02340 Introduction of Influenza Vaccine into Muscle, Percutaneous Approach (ICD-10-PCS; 2018-03-01)
PROC: 5A1D70Z Performance of Urinary Filtration, Intermittent, Less than 6 Hours Per Day (ICD-10-PCS; principal; 2018-03-02)
DX: G93.49 Other encephalopathy (principal); I50.23 Acute on chronic systolic (congestive) heart failure; N18.6 End stage renal disease; J96.91 Respiratory failure, unspecified with hypoxia; I13.2 Hypertensive heart and chronic kidney disease with heart failure and with stage 5 chronic kidney disease, or end stage renal disease; J90 Pleural effusion, not elsewhere classified; D64.9 Anemia, unspecified; E11.22 Type 2 diabetes mellitus with diabetic chronic kidney disease; E11.65 Type 2 diabetes mellitus with hyperglycemia; I50.9 Heart failure, unspecified; E87.70 Fluid overload, unspecified; J44.9 Chronic obstructive pulmonary disease, unspecified; K21.9 Gastro-esophageal reflux disease without esophagitis; F17.210 Nicotine dependence, cigarettes, uncomplicated; B19.20 Unspecified viral hepatitis C without hepatic coma; F12.90 Cannabis use, unspecified, uncomplicated; F32.9 Major depressive disorder, single episode, unspecified; F41.9 Anxiety disorder, unspecified; R21 Rash and other nonspecific skin eruption; G89.29 Other chronic pain; M54.9 Dorsalgia, unspecified; R19.7 Diarrhea, unspecified; Z99.2 Dependence on renal dialysis; I25.2 Old myocardial infarction; Z91.15 Patient's noncompliance with renal dialysis; Z79.899 Other long term (current) drug therapy; Z79.82 Long term (current) use of aspirin; Z79.4 Long term (current) use of insulin; Z98.61 Coronary angioplasty status; Z82.41 Family history of sudden cardiac death; Z82.49 Family history of ischemic heart disease and other diseases of the circulatory system; Z23 Encounter for immunization
CPT/HCPCS: 36415; 71045; 80053; 81001; 82945; 82948; 83615; 83735; 83880; 83986; 84100; 84157; 84484; 85025; 85610; 85730; 87070; 87324; 87449; 89051; 93005; 94640; 94760; 96374; 99285; G0257; G0378; J0885; J1644; J1815; J2001; J2405; J3490; Q2037

== ENCOUNTER 2018-03-26 15:37 | Inpatient (IN) | payer MEDICARE, MEDICAID ==
[~2018-03-26] VITALS: Ht 182.9 cm; Wt 84.1 kg
[~2018-03-26 15:37] MED LIST changes: -GABA-532 PO; +GABA300C PO
[2018-03-26 17:29] LABS: BASOPHILS # (AUTO) 0.1 X10'3 (0-0.2); EOSINOPHILS % (AUTO) 0.7 % (0-6); HEMOGLOBIN 11.6 g/dl (14.0-17.9); LYMPHOCYTES # (AUTO) 1.3 X10'3 (1.1-4.8); LYMPHOCYTES % (AUTO) 24.1 % (21-51); MEAN CORPUSCULAR HGB CONC 32.2 % (33.0-36.5); MEAN CORPUSCULAR VOLUME 96.5 FL (78-98); MEAN PLATELET VOLUME 9.1 FL (7.4-10.4); MONOCYTES # (AUTO) 0.3 X10'3 (0-0.9); MONOCYTES % (AUTO) 6.2 % (2-12); NEUTROPHILS # (AUTO) 3.5 X10'3 (1.8-7.7); PLATELET COUNT 129 X10'3 (140-440); RED BLOOD COUNT 3.73 X10'6 (4.70-6.10); RED CELL DISTRIBUTION WIDTH 18.7 % (11.5-14.5); WHITE BLOOD COUNT 5.2 X10'3 (4.5-11.0)
[2018-03-26 17:44] LABS: ALANINE AMINOTRANSFERASE 31 U/L (12-78); ALBUMIN 2.5 G/DL (3.4-5.0); ALBUMIN/GLOBULIN RATIO 0.5 (1.1-1.5); ALKALINE PHOSPHATASE 139 IU/L (46-116); ANION GAP 8 (8-16); ASPARTATE AMINO TRANSFERASE 33 U/L (10-37); BILIRUBIN,TOTAL 0.5 MG/DL (0.1-1.0); BLOOD UREA NITROGEN 53 MG/DL (7-18); BUN/CREATININE RATIO 17.2 (5.4-32.0); CALCIUM 8.3 MG/DL (8.5-10.1); CHLORIDE 100 MMOL/L (99-107); CREATININE 3.08 MG/DL (0.60-1.10); MAGNESIUM 2.1 MG/DL (1.5-2.4); PHOSPHORUS 4.5 MG/DL (2.3-4.5); POTASSIUM 4.9 MMOL/L (3.5-5.1); SODIUM 136 MMOL/L (135-145); TOTAL CARBON DIOXIDE 27.7 MMOL/L (24-32); TOTAL PROTEIN 7.1 G/DL (6.4-8.2); eGFR 21 ML/MIN
[2018-03-26 17:45] LABS: GLUCOSE 298 MG/DL (70-104)
[2018-03-26 18:36] LABS: INR 1.2 INR; PARTIAL THROMBOPLASTIN TIME 27 SECONDS (22-32); PROTHROMBIN TIME 11.6 SECONDS (9.0-12.0)
[2018-03-26] MEDS ORDERED: acetaminophen 325mg tablet PO PRN ×2 (19:40)
[2018-03-26] MEDS ORDERED: dextrose 50%-water 50ml dispensing syringe IV PRN ×2 (19:40)
[2018-03-26] MEDS ORDERED: bisacodyl 10mg suppository rectal RC PRN (19:40)
[2018-03-26] MEDS ORDERED: glucagon, human recombinant 1mg kit SUBCUT PRN (19:40)
[2018-03-26] MEDS ORDERED: MESSAGE TO PHARMACY PO ONE (19:40)
[2018-03-26] MEDS ORDERED: dextrose ORAL solution 15 GM/59 ML bottle PO PRN ×2 (19:40)
[2018-03-26] MEDS ORDERED: ondansetron/PF 4mg/2ml inj IV PRN (19:40)
[2018-03-26] MEDS: heparin, porcine 5000 units/ml vial SQ SCH (20:38)
[2018-03-26] MEDS: gabapentin 300mg capsule PO SCH (20:38)
[2018-03-26] MEDS: carVEDilol 12.5mg tablet PO SCH (20:38)
[2018-03-26] MEDS ORDERED: calcium acetate 667mg (PhosLO) capsule PO SCH (21:00)
[2018-03-26] MEDS ORDERED: insulin glargine (Lantus) pen - multi-dose SQ SCH (21:00)
[2018-03-26 21:30] VITALS: BP 163/78
[2018-03-26] MEDS: traZODone 50mg tablet PO SCH (22:12)
[2018-03-26] MEDS ORDERED: calcium acetate 667mg (PhosLO) capsule PO ONE (22:45)
[2018-03-26] MEDS: insulin glargine (Lantus) pen - multi-dose SQ SCH (23:00)
[2018-03-27] VITALS: BP 149/79
[2018-03-27] MEDS: hydrALAZINE 25 MG tablet PO SCH ×4 (00:56→23:57)
[2018-03-27] MEDS: HYDROcodone/acetaminophen 10/325mg tab PO PRN ×3 (00:57→15:25)
[2018-03-27 05:27] LABS: BASOPHILS % (AUTO) 0.5 % (0-1); EOSINOPHILS % (AUTO) 0.9 % (0-6); HEMATOCRIT 37.9 % (42.0-52.0); HEMOGLOBIN 12.3 g/dl (14.0-17.9); LYMPHOCYTES # (AUTO) 1.6 X10'3 (1.1-4.8); MEAN CORPUSCULAR HEMOGLOBIN 31.2 PG (27.0-31.0); MEAN CORPUSCULAR HGB CONC 32.3 % (33.0-36.5); MEAN CORPUSCULAR VOLUME 96.6 FL (78-98); MEAN PLATELET VOLUME 8.9 FL (7.4-10.4); MONOCYTES # (AUTO) 0.2 X10'3 (0-0.9); MONOCYTES % (AUTO) 4.9 % (2-12); NEUTROPHILS # (AUTO) 1.9 X10'3 (1.8-7.7); NEUTROPHILS % (AUTO) 50.7 % (42-75); PLATELET COUNT 111 X10'3 (140-440); RED BLOOD COUNT 3.92 X10'6 (4.70-6.10); RED CELL DISTRIBUTION WIDTH 18.7 % (11.5-14.5); WHITE BLOOD COUNT 3.7 X10'3 (4.5-11.0)
[2018-03-27 05:47] LABS: ALANINE AMINOTRANSFERASE 35 U/L (12-78); ALBUMIN 2.6 G/DL (3.4-5.0); ALBUMIN/GLOBULIN RATIO 0.6 (1.1-1.5); ALKALINE PHOSPHATASE 134 IU/L (46-116); ANION GAP 6 (8-16); ASPARTATE AMINO TRANSFERASE 34 U/L (10-37); BILIRUBIN,TOTAL 0.6 MG/DL (0.1-1.0); BLOOD UREA NITROGEN 55 MG/DL (7-18); BUN/CREATININE RATIO 17.7 (5.4-32.0); CALCIUM 8.5 MG/DL (8.5-10.1); CHLORIDE 103 MMOL/L (99-107); MAGNESIUM 2.1 MG/DL (1.5-2.4); PHOSPHORUS 4.5 MG/DL (2.3-4.5); POTASSIUM 4.8 MMOL/L (3.5-5.1); SODIUM 138 MMOL/L (135-145); TOTAL CARBON DIOXIDE 29.2 MMOL/L (24-32); TOTAL PROTEIN 7.2 G/DL (6.4-8.2); eGFR 20 ML/MIN
[2018-03-27 05:54] LABS: GLUCOSE 226 MG/DL (70-104)
[2018-03-27 08:00] VITALS: BP 145/73
[2018-03-27] MEDS: carVEDilol 12.5mg tablet PO SCH ×2 (08:20→22:34)
[2018-03-27] MEDS: finasteride 5mg tablet PO SCH (08:21)
[2018-03-27] MEDS: aspirin 81mg tablet.DR PO SCH (08:21)
[2018-03-27] MEDS: calcium acetate 667mg (PhosLO) capsule PO SCH ×3 (08:21→18:31)
[2018-03-27] MEDS: pantoprazole 40mg Tablet.DR PO SCH (08:21)
[2018-03-27] MEDS: gabapentin 300mg capsule PO SCH ×2 (08:22→22:35)
[2018-03-27] MEDS: venlafaxine XR 75mg capsule (Q24H) PO SCH (08:22)
[2018-03-27] MEDS: sertraline 50mg tablet PO SCH (08:23)
[2018-03-27] MEDS: heparin, porcine 5000 units/ml vial SQ SCH ×2 (08:23→22:35)
[2018-03-27] MEDS: insulin Lispro (HumaLOG) vial - multi-dose SQ SCH ×3 (08:33→19:35)
[2018-03-27] MEDS: silver sulfadiazine cream 50gm TP SCH ×2 (08:34→20:00)
[2018-03-27] MEDS ORDERED: heparin 1,000unit/ml 10ml vial 10 ML IV ONE (10:56)
[2018-03-27] MEDS: folic acid/vitamin B complex w/vitamin C 0.8mg tablet PO SCH (10:56)
[2018-03-27] MEDS ORDERED: epoetin 20,000 units/ml inj IV ONE (11:00)
[2018-03-27] MEDS ORDERED: LIDOcaine 1% (10mg/ml) 2ml vial SQ ONE (11:30)
[2018-03-27 12:00] VITALS: BP 148/70
[2018-03-27 18:45] VITALS: BP 135/63
[2018-03-27] MEDS: insulin glargine (Lantus) pen - multi-dose SQ SCH (21:00)
[2018-03-27] MEDS: traZODone 50mg tablet PO SCH (22:35)
[2018-03-27 23:00] VITALS: BP 162/82
[2018-03-28] MEDS: HYDROcodone/acetaminophen 10/325mg tab PO PRN (00:02)
[2018-03-28 05:46] LABS: BASOPHILS % (AUTO) 0.3 % (0-1); EOSINOPHILS % (AUTO) 0.5 % (0-6); HEMOGLOBIN 11.9 g/dl (14.0-17.9); LYMPHOCYTES # (AUTO) 1.5 X10'3 (1.1-4.8); LYMPHOCYTES % (AUTO) 34.4 % (21-51); MEAN CORPUSCULAR HEMOGLOBIN 30.8 PG (27.0-31.0); MEAN CORPUSCULAR HGB CONC 32.3 % (33.0-36.5); MEAN CORPUSCULAR VOLUME 95.4 FL (78-98); MEAN PLATELET VOLUME 9.2 FL (7.4-10.4); MONOCYTES # (AUTO) 0.2 X10'3 (0-0.9); NEUTROPHILS # (AUTO) 2.6 X10'3 (1.8-7.7); NEUTROPHILS % (AUTO) 59.8 % (42-75); PLATELET COUNT 104 X10'3 (140-440); RED BLOOD COUNT 3.88 X10'6 (4.70-6.10); RED CELL DISTRIBUTION WIDTH 18.3 % (11.5-14.5); WHITE BLOOD COUNT 4.3 X10'3 (4.5-11.0)
[2018-03-28 06:10] LABS: ALANINE AMINOTRANSFERASE 33 U/L (12-78); ALBUMIN 2.5 G/DL (3.4-5.0); ALBUMIN/GLOBULIN RATIO 0.5 (1.1-1.5); ALKALINE PHOSPHATASE 114 IU/L (46-116); ANION GAP 7 (8-16); ASPARTATE AMINO TRANSFERASE 35 U/L (10-37); BILIRUBIN,TOTAL 0.6 MG/DL (0.1-1.0); BLOOD UREA NITROGEN 34 MG/DL (7-18); BUN/CREATININE RATIO 14.5 (5.4-32.0); CALCIUM 8.4 MG/DL (8.5-10.1); CHLORIDE 101 MMOL/L (99-107); CREATININE 2.35 MG/DL (0.60-1.10); MAGNESIUM 1.9 MG/DL (1.5-2.4); POTASSIUM 4.4 MMOL/L (3.5-5.1); SODIUM 138 MMOL/L (135-145); TOTAL CARBON DIOXIDE 30.2 MMOL/L (24-32); TOTAL PROTEIN 7.2 G/DL (6.4-8.2); eGFR 28 ML/MIN
[2018-03-28 06:16] LABS: GLUCOSE 99 MG/DL (70-104)
[2018-03-28 07:00] VITALS: BP 148/66
[2018-03-28] MEDS: aspirin 81mg tablet.DR PO SCH (07:56)
[2018-03-28] MEDS: pantoprazole 40mg Tablet.DR PO SCH (07:56)
[2018-03-28] MEDS: calcium acetate 667mg (PhosLO) capsule PO SCH ×3 (07:56→18:00)
[2018-03-28] MEDS: sertraline 50mg tablet PO SCH (07:56)
[2018-03-28] MEDS: folic acid/vitamin B complex w/vitamin C 0.8mg tablet PO SCH (07:56)
[2018-03-28] MEDS: venlafaxine XR 75mg capsule (Q24H) PO SCH (07:56)
[2018-03-28] MEDS: heparin, porcine 5000 units/ml vial SQ SCH ×2 (07:57→12:08)
[2018-03-28] MEDS: finasteride 5mg tablet PO SCH (07:57)
[2018-03-28] MEDS: gabapentin 300mg capsule PO SCH ×2 (07:57→20:57)
[2018-03-28] MEDS: silver sulfadiazine cream 50gm TP SCH ×2 (07:59→20:58)
[2018-03-28] MEDS: carVEDilol 12.5mg tablet PO SCH ×2 (08:00→20:57)
[2018-03-28] MEDS ORDERED: LIDOcaine 1% (10mg/ml) 2ml vial SQ ONE (08:00)
[2018-03-28] MEDS ORDERED: albumin (human) 25% 100ml IV 100 ML IV PRN (08:00)
[2018-03-28] MEDS: hydrALAZINE 25 MG tablet PO SCH ×2 (08:00→16:00)
[2018-03-28] MEDS ORDERED: epoetin 20,000 units/ml inj IV ONE (08:00)
[2018-03-28] MEDS ORDERED: heparin 1,000unit/ml 10ml vial 10 ML IV ONE (08:00)
[2018-03-28 11:00] VITALS: BP 155/66
[2018-03-28 19:00] VITALS: BP 126/59
[2018-03-28] MEDS: traZODone 50mg tablet PO SCH (20:57)
[2018-03-28] MEDS: insulin glargine (Lantus) pen - multi-dose SQ SCH (21:00)
[2018-03-29] VITALS: BP 127/53
[2018-03-29 05:38] LABS: ALANINE AMINOTRANSFERASE 25 U/L (12-78); ALBUMIN 2.2 G/DL (3.4-5.0); ALBUMIN/GLOBULIN RATIO 0.5 (1.1-1.5); ALKALINE PHOSPHATASE 98 IU/L (46-116); ANION GAP 10 (8-16); ASPARTATE AMINO TRANSFERASE 25 U/L (10-37); BILIRUBIN,TOTAL 0.5 MG/DL (0.1-1.0); BLOOD UREA NITROGEN 24 MG/DL (7-18); BUN/CREATININE RATIO 11.8 (5.4-32.0); CALCIUM 8.1 MG/DL (8.5-10.1); CHLORIDE 102 MMOL/L (99-107); CREATININE 2.03 MG/DL (0.60-1.10); GLUCOSE 163 MG/DL (70-104); MAGNESIUM 1.7 MG/DL (1.5-2.4); PHOSPHORUS 2.3 MG/DL (2.3-4.5); POTASSIUM 4.5 MMOL/L (3.5-5.1); SODIUM 140 MMOL/L (135-145); TOTAL CARBON DIOXIDE 27.6 MMOL/L (24-32); TOTAL PROTEIN 6.3 G/DL (6.4-8.2); eGFR 33 ML/MIN
[2018-03-29 08:00] VITALS: BP 128/64
[2018-03-29] MEDS: aspirin 81mg tablet.DR PO SCH (08:00)
[2018-03-29] MEDS: carVEDilol 12.5mg tablet PO SCH ×2 (08:05→19:56)
[2018-03-29] MEDS: hydrALAZINE 25 MG tablet PO SCH ×4 (08:05→23:55)
[2018-03-29] MEDS: gabapentin 300mg capsule PO SCH ×2 (08:05→19:54)
[2018-03-29] MEDS: sertraline 50mg tablet PO SCH (08:05)
[2018-03-29] MEDS: finasteride 5mg tablet PO SCH (08:05)
[2018-03-29] MEDS: pantoprazole 40mg Tablet.DR PO SCH (08:06)
[2018-03-29] MEDS: calcium acetate 667mg (PhosLO) capsule PO SCH ×3 (08:06→17:31)
[2018-03-29] MEDS: venlafaxine XR 75mg capsule (Q24H) PO SCH (08:06)
[2018-03-29] MEDS: silver sulfadiazine cream 50gm TP SCH ×2 (08:07→19:59)
[2018-03-29] MEDS: folic acid/vitamin B complex w/vitamin C 0.8mg tablet PO SCH (08:07)
[2018-03-29] MEDS: HYDROcodone/acetaminophen 10/325mg tab PO PRN ×2 (08:14→17:32)
[2018-03-29] MEDS ORDERED: LIDOcaine 1%/PF 5ML 10 MG/ML VIAL ONE (09:10)
[2018-03-29] MEDS: insulin Lispro (HumaLOG) vial - multi-dose SQ SCH ×3 (09:40→19:53)
[2018-03-29 09:42] VITALS: BP 122/49
[2018-03-29 09:45] VITALS: BP 126/48
[2018-03-29 09:51] LABS: BASOPHILS % (AUTO) 0.3 % (0-1); EOSINOPHILS % (AUTO) 0.4 % (0-6); HEMATOCRIT 33.7 % (42.0-52.0); HEMOGLOBIN 10.7 g/dl (14.0-17.9); LYMPHOCYTES # (AUTO) 1.8 X10'3 (1.1-4.8); LYMPHOCYTES % (AUTO) 37.5 % (21-51); MEAN CORPUSCULAR HEMOGLOBIN 30.6 PG (27.0-31.0); MEAN CORPUSCULAR HGB CONC 31.8 % (33.0-36.5); MEAN CORPUSCULAR VOLUME 96.4 FL (78-98); MEAN PLATELET VOLUME 9.5 FL (7.4-10.4); MONOCYTES # (AUTO) 0.3 X10'3 (0-0.9); MONOCYTES % (AUTO) 6.4 % (2-12); NEUTROPHILS # (AUTO) 2.6 X10'3 (1.8-7.7); NEUTROPHILS % (AUTO) 55.4 % (42-75); PLATELET COUNT 103 X10'3 (140-440); RED CELL DISTRIBUTION WIDTH 18.3 % (11.5-14.5); WHITE BLOOD COUNT 4.7 X10'3 (4.5-11.0)
[2018-03-29 11:35] VITALS: BP 135/58
[2018-03-29 18:00] VITALS: BP 140/66
[2018-03-29] MEDS: heparin, porcine 5000 units/ml vial SQ SCH (19:54)
[2018-03-29] MEDS: insulin glargine (Lantus) pen - multi-dose SQ SCH (20:16)
[2018-03-29] MEDS: traZODone 50mg tablet PO SCH (20:19)
[2018-03-30] VITALS: BP 137/71
[2018-03-30 07:00] VITALS: BP 125/60
[2018-03-30] MEDS: calcium acetate 667mg (PhosLO) capsule PO SCH ×2 (07:42→14:00)
[2018-03-30] MEDS: folic acid/vitamin B complex w/vitamin C 0.8mg tablet PO SCH (07:43)
[2018-03-30] MEDS: HYDROcodone/acetaminophen 10/325mg tab PO PRN ×2 (07:43→14:00)
[2018-03-30] MEDS: venlafaxine XR 75mg capsule (Q24H) PO SCH (07:43)
[2018-03-30] MEDS: hydrALAZINE 25 MG tablet PO SCH ×2 (07:43→16:00)
[2018-03-30] MEDS: gabapentin 300mg capsule PO SCH (07:44)
[2018-03-30] MEDS: pantoprazole 40mg Tablet.DR PO SCH (07:44)
[2018-03-30] MEDS: sertraline 50mg tablet PO SCH (07:44)
[2018-03-30] MEDS: silver sulfadiazine cream 50gm TP SCH (07:44)
[2018-03-30] MEDS: finasteride 5mg tablet PO SCH (07:44)
[2018-03-30] MEDS: carVEDilol 12.5mg tablet PO SCH (07:44)
[2018-03-30] MEDS: aspirin 81mg tablet.DR PO SCH (07:44)
[2018-03-30] MEDS: heparin, porcine 5000 units/ml vial SQ SCH (07:45)
[2018-03-30] MEDS ORDERED: heparin 1,000 units/ml 10ml inj IV ONE (08:00)
[2018-03-30] MEDS ORDERED: normal saline 1000ml 250 ML IV PRN (08:00)
[2018-03-30] MEDS ORDERED: LIDOcaine 1% (10mg/ml) 2ml vial SQ ONE (08:00)
[2018-03-30] MEDS: insulin Lispro (HumaLOG) vial - multi-dose SQ SCH ×2 (09:57→14:28)
[2018-03-30 12:00] VITALS: BP 115/52
[2018-03-30 13:23] LABS: BASOPHILS % (AUTO) 0.5 % (0-1); EOSINOPHILS % (AUTO) 0.5 % (0-6); HEMATOCRIT 32.8 % (42.0-52.0); HEMOGLOBIN 10.4 g/dl (14.0-17.9); LYMPHOCYTES # (AUTO) 1.4 X10'3 (1.1-4.8); LYMPHOCYTES % (AUTO) 32.6 % (21-51); MEAN CORPUSCULAR HEMOGLOBIN 30.5 PG (27.0-31.0); MEAN CORPUSCULAR HGB CONC 31.9 % (33.0-36.5); MEAN CORPUSCULAR VOLUME 95.5 FL (78-98); MEAN PLATELET VOLUME 9.7 FL (7.4-10.4); MONOCYTES # (AUTO) 0.2 X10'3 (0-0.9); MONOCYTES % (AUTO) 5.7 % (2-12); NEUTROPHILS # (AUTO) 2.6 X10'3 (1.8-7.7); NEUTROPHILS % (AUTO) 60.7 % (42-75); PLATELET COUNT 104 X10'3 (140-440); RED BLOOD COUNT 3.43 X10'6 (4.70-6.10); RED CELL DISTRIBUTION WIDTH 17.7 % (11.5-14.5); WHITE BLOOD COUNT 4.3 X10'3 (4.5-11.0)
[2018-03-30 13:39] LABS: ALANINE AMINOTRANSFERASE 25 U/L (12-78); ALBUMIN 2.1 G/DL (3.4-5.0); ALBUMIN/GLOBULIN RATIO 0.5 (1.1-1.5); ALKALINE PHOSPHATASE 97 IU/L (46-116); ANION GAP 4 (8-16); ASPARTATE AMINO TRANSFERASE 34 U/L (10-37); BILIRUBIN,TOTAL 0.5 MG/DL (0.1-1.0); BLOOD UREA NITROGEN 39 MG/DL (7-18); BUN/CREATININE RATIO 13.9 (5.4-32.0); CHLORIDE 98 MMOL/L (99-107); CREATININE 2.81 MG/DL (0.60-1.10); GLUCOSE 209 MG/DL (70-104); MAGNESIUM 1.7 MG/DL (1.5-2.4); PHOSPHORUS 2.6 MG/DL (2.3-4.5); POTASSIUM 4.9 MMOL/L (3.5-5.1); SODIUM 132 MMOL/L (135-145); TOTAL CARBON DIOXIDE 29.7 MMOL/L (24-32); TOTAL PROTEIN 6.1 G/DL (6.4-8.2); eGFR 23 ML/MIN
[2018-03-30] MEDS ORDERED: SILV25CR21 TP (14:01)
[2018-03-30] MEDS: epoetin 20,000 units/ml inj IV ONE ×2 (15:05→15:39)
== END 2018-03-30 17:00 | disposition home or self-care (01) | DRG 291 ==
LOC: ER 15:37 → ED HOLD 19:39 → SUR 3N 21:09
PROVIDERS: ADMIT Internal Medicine Critical Care Medicine
PROC: 5A1D70Z Performance of Urinary Filtration, Intermittent, Less than 6 Hours Per Day (ICD-10-PCS; 2018-03-27)
PROC: 5A1D70Z Performance of Urinary Filtration, Intermittent, Less than 6 Hours Per Day (ICD-10-PCS; 2018-03-28)
PROC: 0W993ZZ Drainage of Right Pleural Cavity, Percutaneous Approach (ICD-10-PCS; principal; 2018-03-29)
PROC: 5A1D70Z Performance of Urinary Filtration, Intermittent, Less than 6 Hours Per Day (ICD-10-PCS; 2018-03-30)
DX: I13.2 Hypertensive heart and chronic kidney disease with heart failure and with stage 5 chronic kidney disease, or end stage renal disease (principal); N18.6 End stage renal disease; J90 Pleural effusion, not elsewhere classified; E11.22 Type 2 diabetes mellitus with diabetic chronic kidney disease; I50.9 Heart failure, unspecified; B19.20 Unspecified viral hepatitis C without hepatic coma; F32.9 Major depressive disorder, single episode, unspecified; F41.9 Anxiety disorder, unspecified; G89.29 Other chronic pain; M54.9 Dorsalgia, unspecified; R19.7 Diarrhea, unspecified; J44.9 Chronic obstructive pulmonary disease, unspecified; K21.9 Gastro-esophageal reflux disease without esophagitis; T20.07XD Burn of unspecified degree of neck, subsequent encounter; I25.2 Old myocardial infarction; Z90.49 Acquired absence of other specified parts of digestive tract; Z99.2 Dependence on renal dialysis; Z91.15 Patient's noncompliance with renal dialysis; Z79.82 Long term (current) use of aspirin; Z79.4 Long term (current) use of insulin; Z79.899 Other long term (current) drug therapy; Z87.891 Personal history of nicotine dependence; Z82.41 Family history of sudden cardiac death; Z82.49 Family history of ischemic heart disease and other diseases of the circulatory system; Y93.89 Activity, other specified; Y92.89 Other specified places as the place of occurrence of the external cause; Y99.8 Other external cause status
CPT/HCPCS: 32555; 36415; 71045; 80053; 82948; 83735; 83880; 84100; 85025; 85610; 85730; 87070; 90935; 93005; 93306; 97110; 97161; 97530; 99291; G0257; G0378; J0885; J1644; J1815; J2001; J2150; J3490; P9047

== ENCOUNTER 2018-04-18 06:27 | Day surgery (SDC) | payer MEDICARE, MEDICAID ==
[~2018-04-18] VITALS: Ht 182.9 cm; Wt 90.7 kg
[2018-04-18] VITALS (17 sets, daily range): BP systolic 106–147; BP diastolic 44–79
[~2018-04-18 06:27] MED LIST changes: +SILV25CR21 TP
[2018-04-18] MEDS ORDERED: normal saline 1000ml 1,000 ML IV SCH (07:05)
[2018-04-18] MEDS ORDERED: GABA300C PO (07:28)
[2018-04-18] MEDS ORDERED: CLON0.5T13 PO (07:30)
[2018-04-18] MEDS ORDERED: heparin 1,000unit/ml 10ml vial 10 ML ONE (08:48)
[2018-04-18] MEDS ORDERED: LIDOcaine 1%/PF 5ML 10 MG/ML VIAL ONE ×2 (08:49→09:17)
[2018-04-18] MEDS ORDERED: fentaNYL/PF 50MCG/1 ML 2ML syringe ONE (08:49)
[2018-04-18] MEDS ORDERED: midazolam 2 mg/2 ml injection ONE (08:49)
[2018-04-18] MEDS ORDERED: fentaNYL/PF 50MCG/1 ML 2ML syringe IV PRN (08:50)
[2018-04-18] MEDS ORDERED: midazolam 2 mg/2 ml injection IV PRN (08:50)
[2018-04-18] MEDS ORDERED: heparin 1,000 units/ml 10ml inj ICATH ONE (08:50)
[2018-04-18] MEDS ORDERED: LIDOcaine 1%/PF 5ML 10 MG/ML VIAL SQ ONE (08:50)
[2018-04-18] MEDS ORDERED: iohexol 300 MG/1 ML 50ml polymer ONE (10:15)
[2018-04-18 12:07] LABS: ALBUMIN 2.2 G/DL (3.4-5.0); ANION GAP 10 (8-16); BLOOD UREA NITROGEN 52 MG/DL (7-18); BUN/CREATININE RATIO 13.4 (5.4-32.0); CALCIUM 8.8 MG/DL (8.5-10.1); CHLORIDE 101 MMOL/L (99-107); CREATININE 3.88 MG/DL (0.60-1.10); GLUCOSE 71 MG/DL (70-104); POTASSIUM 5.2 MMOL/L (3.5-5.1); SODIUM 139 MMOL/L (135-145); TOTAL CARBON DIOXIDE 28.3 MMOL/L (24-32); eGFR 16 ML/MIN
== END 2018-04-18 12:45 | disposition home or self-care (01) ==
LOC: SSTAY O 06:27
PROVIDERS: ATTEND Radiology Diagnostic Radiology
DX: T82.858A Stenosis of other vascular prosthetic devices, implants and grafts, initial encounter (principal); Y83.8 Other surgical procedures as the cause of abnormal reaction of the patient, or of later complication, without mention of misadventure at the time of the procedure; Y92.89 Other specified places as the place of occurrence of the external cause; J90 Pleural effusion, not elsewhere classified; I13.2 Hypertensive heart and chronic kidney disease with heart failure and with stage 5 chronic kidney disease, or end stage renal disease; E11.22 Type 2 diabetes mellitus with diabetic chronic kidney disease; N18.6 End stage renal disease; I50.9 Heart failure, unspecified; K21.9 Gastro-esophageal reflux disease without esophagitis; I25.2 Old myocardial infarction; J44.9 Chronic obstructive pulmonary disease, unspecified; G89.29 Other chronic pain; F41.8 Other specified anxiety disorders; F32.9 Major depressive disorder, single episode, unspecified; E11.42 Type 2 diabetes mellitus with diabetic polyneuropathy; I25.10 Atherosclerotic heart disease of native coronary artery without angina pectoris; E78.5 Hyperlipidemia, unspecified; F17.210 Nicotine dependence, cigarettes, uncomplicated; H91.8X3 Other specified hearing loss, bilateral; Z79.4 Long term (current) use of insulin; Z79.891 Long term (current) use of opiate analgesic; Z79.82 Long term (current) use of aspirin; Z99.2 Dependence on renal dialysis; Z86.19 Personal history of other infectious and parasitic diseases; Z90.49 Acquired absence of other specified parts of digestive tract; Z87.01 Personal history of pneumonia (recurrent); Z87.09 Personal history of other diseases of the respiratory system; Z99.81 Dependence on supplemental oxygen; Z98.41 Cataract extraction status, right eye; Z98.42 Cataract extraction status, left eye; Z87.2 Personal history of diseases of the skin and subcutaneous tissue; Z79.2 Long term (current) use of antibiotics; Z79.899 Other long term (current) drug therapy; Z98.890 Other specified postprocedural states; Z83.3 Family history of diabetes mellitus; Z82.49 Family history of ischemic heart disease and other diseases of the circulatory system
CPT/HCPCS: 32555; 36415; 36558; 71045; 76937; 77001; 80048; J1644; J2001; J2250; J3010; Q9967; A9270; C1750; C1894

== ENCOUNTER 2018-04-18 20:57 | Inpatient (IN) | payer MEDICARE, MEDICAID ==
[~2018-04-18] VITALS: Ht 182.9 cm; Wt 95.0 kg
[~2018-04-18 20:57] MED LIST changes: +CLON0.5T13 PO
[2018-04-18] MEDS ORDERED: ipratropium/albuterol 3ml nebule NEB ONE (21:05)
[2018-04-18] MEDS ORDERED: furosemide 10 MG/1 ML 10ml inj IV ONE (21:05)
[2018-04-18] MEDS ORDERED: methylPREDNISolone sod succ 125mg/2ml vial IV ONE (21:05)
[2018-04-18 21:46] LABS: BASOPHILS % (AUTO) 0.1 % (0-1); EOSINOPHILS % (AUTO) 0 % (0-6); HEMATOCRIT 35.9 % (42.0-52.0); HEMOGLOBIN 11.4 g/dl (14.0-17.9); LYMPHOCYTES # (AUTO) 0.6 X10'3 (1.1-4.8); LYMPHOCYTES % (AUTO) 10.9 % (21-51); MEAN CORPUSCULAR HEMOGLOBIN 30.2 PG (27.0-31.0); MEAN CORPUSCULAR HGB CONC 31.8 % (33.0-36.5); MEAN CORPUSCULAR VOLUME 94.8 FL (78-98); MEAN PLATELET VOLUME 9.6 FL (7.4-10.4); MONOCYTES # (AUTO) 0.1 X10'3 (0-0.9); MONOCYTES % (AUTO) 1.4 % (2-12); NEUTROPHILS # (AUTO) 4.9 X10'3 (1.8-7.7); NEUTROPHILS % (AUTO) 87.6 % (42-75); PLATELET COUNT 114 X10'3 (140-440); RED BLOOD COUNT 3.78 X10'6 (4.70-6.10); RED CELL DISTRIBUTION WIDTH 19.8 % (11.5-14.5); WHITE BLOOD COUNT 5.6 X10'3 (4.5-11.0)
[2018-04-18] MEDS ORDERED: normal saline 1000ML IV soln IVB ONE (21:55)
[2018-04-18] MEDS ORDERED: piperacillin/tazo 3.375gm/50ml 50 ML IV ONE (21:55)
[2018-04-18 22:14] LABS: ALANINE AMINOTRANSFERASE 20 U/L (12-78); ALBUMIN/GLOBULIN RATIO 0.5 (1.1-1.5); ALKALINE PHOSPHATASE 66 IU/L (46-116); ANION GAP 9 (8-16); ASPARTATE AMINO TRANSFERASE 44 U/L (10-37); BILIRUBIN,TOTAL 1.2 MG/DL (0.1-1.0); BLOOD UREA NITROGEN 62 MG/DL (7-18); BUN/CREATININE RATIO 15.3 (5.4-32.0); CALCIUM 8.6 MG/DL (8.5-10.1); CHLORIDE 102 MMOL/L (99-107); CREATININE 4.05 MG/DL (0.60-1.10); GLUCOSE 93 MG/DL (70-104); POTASSIUM 5.4 MMOL/L (3.5-5.1); SODIUM 138 MMOL/L (135-145); TOTAL PROTEIN 5.9 G/DL (6.4-8.2); eGFR 15 ML/MIN
[2018-04-18] MEDS ORDERED: albumin (human) 25% 100ml IV 100 ML IV ONE ×2 (22:30→23:10)
[2018-04-18] MEDS ORDERED: acetaminophen 325mg tablet PO PRN ×2 (22:45)
[2018-04-18] MEDS ORDERED: HYDROcodone/acetaminophen 5mg/325mg tablet PO PRN (22:45)
[2018-04-18] MEDS ORDERED: morphine 4 MG/ML inj SYRINge IV ONE (22:45)
[2018-04-18 22:54] LABS: ANISOCYTOSIS 2+; HYPOCHROMASIA 2+; MICROCYTOSIS 2+; PLATELET ESTIMATE DECREASED; SCHISTOCYTES FEW; TOTAL CELLS COUNTED 100
[2018-04-18 22:55] LABS: TARGET CELLS FEW; TOXIC GRANULATION 2+; TOXIC VACUOLATION 2+
[2018-04-18] MEDS: albumin (human) 25% 100ml IV 100 ML IV SCH (22:55)
[2018-04-18] MEDS ORDERED: levoFLOXACIN-Levaquin 750MG/D5 150 ML IV SCH (23:05)
--- NOTE | 2018-04-18 23:37 | NUR ---
Patient in room . I have received report from jaswant bello and had the opportunity to ask questions and assume patient care. bc to still be drawn by lab and lactic still not drawn; skill labor notified down in er
[2018-04-19] VITALS (10 sets, daily range): BP systolic 89–135; BP diastolic 40–109
--- NOTE | 2018-04-19 00:30 | NUR ---
patient arrived to floor via gurney and transferred to hospital bed; patient alert and oriented x4, patient in no distress. lab at bedside to draw lactic and blood cultures. v/s completed and assessment done. 2 rn skin check done with lillie bello. multiple skin issues seen this shift. pictures taken and in chart. patient oriented to room nurse and call light system. iv albumin and iv levaquin given.
[2018-04-19] MEDS: ondansetron/PF 4mg/2ml inj IV PRN ×3 (01:15→23:35)
[2018-04-19] MEDS: methylPREDNISolone sod succ/PF 40mg inj. IV SCH ×4 (01:15→22:41)
--- NOTE | 2018-04-19 02:00 | NUR ---
during nursing rounds, nurse entered room to find patient confused and not responding appropriately to commands or questions. patient became less responsive to nurse a few seconds after and o2sat remained in the low 60's on 6l; rapid was paged patient was placed on nonrebreather at 15l. icu charge arrived to floor and ordered abg which showed high co2 and required pt to go on bipap. patient's bg checked and at 70; dextrose 25cc given and bg increased to 227. family was contacted and agreed for patient to go on bipap (charge nurse clifton rn called and spoke with family members). patient was then placed on bipap at 70%. bp 98/49 and o2sat increased to 91%. labs preformed as ordered by jerrod salazar. per discharge specialist patient opened his eyes, family at bedside. patient remains on tele; will continue to monitor
[2018-04-19] MEDS ORDERED: dextrose 50%-water 50ml dispensing syringe IV ONE (02:09)
--- NOTE | 2018-04-19 02:11 | NUR ---
blood glucose per accucheck = 70 mg/dL
[2018-04-19 02:21] LABS: ABG BASE EXCESS -1.5 mmol/L (-2.0-3.0); ABG HCO3 28.7 mmol/L (22.0-26.0); ABG OXYGEN SATURATION 68.1 % (95-98); ABG PCO2 (T) 80.1 mmHg (35.0-48.0); ABG PH (T) 7.172 (7.350-7.450); ABG PO2 (T) 46.9 mmHg (83-108); FCOHb 0.7 % (0.5-1.5); FLOW 15 L/min; FMetHb 0.2 % (0.3-1.12); FO2Hb 67.5 % (94-100); RESPIRATORY RATE (OBSERVED) 16 b/min; TOTAL HEMOGLOBIN 11.9 G/dl (14.0-18.0)
[2018-04-19 02:48] LABS: BASOPHILS % (AUTO) 0.2 % (0-1); EOSINOPHILS % (AUTO) 0.3 % (0-6); HEMATOCRIT 35.2 % (42.0-52.0); HEMOGLOBIN 11.2 g/dl (14.0-17.9); LYMPHOCYTES # (AUTO) 0.5 X10'3 (1.1-4.8); LYMPHOCYTES % (AUTO) 11.5 % (21-51); MEAN CORPUSCULAR HEMOGLOBIN 30.7 PG (27.0-31.0); MEAN CORPUSCULAR HGB CONC 31.9 % (33.0-36.5); MEAN CORPUSCULAR VOLUME 96.2 FL (78-98); MEAN PLATELET VOLUME 9.6 FL (7.4-10.4); MONOCYTES % (AUTO) 0.6 % (2-12); NEUTROPHILS # (AUTO) 4.1 X10'3 (1.8-7.7); NEUTROPHILS % (AUTO) 87.4 % (42-75); PLATELET COUNT 92 X10'3 (140-440); RED BLOOD COUNT 3.66 X10'6 (4.70-6.10); RED CELL DISTRIBUTION WIDTH 19.6 % (11.5-14.5); WHITE BLOOD COUNT 4.7 X10'3 (4.5-11.0)
[2018-04-19] MEDS ORDERED: ipratropium/albuterol 3ml nebule NEB PRN (02:50)
[2018-04-19 03:03] LABS: ANISOCYTOSIS 2+; GIANT PLATELET FEW; HYPOCHROMASIA 2+; MICROCYTOSIS 2+; PLATELET ESTIMATE DECREASED; SCHISTOCYTES FEW; TARGET CELLS FEW
[2018-04-19 03:04] LABS: ALANINE AMINOTRANSFERASE 23 U/L (12-78); ALBUMIN 2.6 G/DL (3.4-5.0); ALBUMIN/GLOBULIN RATIO 0.7 (1.1-1.5); ALKALINE PHOSPHATASE 55 IU/L (46-116); ANION GAP 10 (8-16); ASPARTATE AMINO TRANSFERASE 47 U/L (10-37); BILIRUBIN,TOTAL 1.5 MG/DL (0.1-1.0); BLOOD UREA NITROGEN 63 MG/DL (7-18); BUN/CREATININE RATIO 15.1 (5.4-32.0); CALCIUM 8.4 MG/DL (8.5-10.1); CHLORIDE 102 MMOL/L (99-107); CREATININE 4.16 MG/DL (0.60-1.10); GLUCOSE 192 MG/DL (70-104); MAGNESIUM 1.6 MG/DL (1.5-2.4); PHOSPHORUS 5.3 MG/DL (2.3-4.5); POTASSIUM 5.1 MMOL/L (3.5-5.1); SODIUM 138 MMOL/L (135-145); TOTAL CARBON DIOXIDE 26.5 MMOL/L (24-32); TOTAL PROTEIN 6.2 G/DL (6.4-8.2); eGFR 15 ML/MIN
[2018-04-19] MEDS: albumin (human) 25% 100ml IV 100 ML IV SCH (03:13)
--- NOTE | 2018-04-19 03:35 | NUR ---
patient more awake at this time; trying to pull at mask and is talking in clear sentences; patient asking why he was wearing the mask, nurse explained patho phys in simple terms to patient and family. patient agreeing to keep bipap mask on at this time; abg to be rechecked rt is aware. will continue to monitor bp and o2 sat 93/52 and 98% on 70% bipap Addendum: 04/19/18 at 0435 by Obdulia Quintero RN comfort care osmin brought to bedside by anca torres
--- NOTE | 2018-04-19 04:15 | NUR ---
marie contacted about patient's chest pain episode; family reported to nurse that patient grasped his chest and reported chest pain near the right upper chest tdc site; stat ekg performed and bp low at 84/43. during ekg patient fell asleep and did not appear to be in pain. marie at this time stated to continue to monitor patient and gave no new orders. stated he would come to pcu to read ekg.
--- NOTE | 2018-04-19 04:40 | NUR ---
rt paged for repeat abg
--- NOTE | 2018-04-19 04:47 | NUR ---
marie read ekg as no stemi; ordered 10mg midodrine once for low bp's
[2018-04-19] MEDS ORDERED: midodrine 5mg tablet PO ONE (04:50)
[2018-04-19 05:16] LABS: ABG BASE EXCESS 2.8 mmol/L (-2.0-3.0); ABG HCO3 29.1 mmol/L (22.0-26.0); ABG OXYGEN SATURATION 98.4 % (95-98); ABG PCO2 (T) 51.8 mmHg (35.0-48.0); ABG PH (T) 7.365 (7.350-7.450); ABG PO2 (T) 138.8 mmHg (83-108); ALLEN'S TEST Positive; FCOHb 0.3 % (0.5-1.5); FMetHb 0.3 % (0.3-1.12); FO2Hb 97.8 % (94-100); MINUTE VOLUME 11 L/min; PATIENT TEMPERATURE 36.4; RESPIRATORY RATE 20 b/min; RESPIRATORY RATE (OBSERVED) 23 b/min; TIDAL VOLUME 580 mL; TOTAL HEMOGLOBIN 10.5 G/dl (14.0-18.0)
--- NOTE | 2018-04-19 05:19 | NUR ---
called lab about redraw for lactic; la level 2hr post inital was suppose to automatically regenerate a new order at 04[address] but [address] order [address]; lab to fix order; lab lady at bedside to draw patient's lactic level now
--- NOTE | 2018-04-19 05:36 | NUR ---
patient at this time could only swallow 1 5mg midodrine tablet; patient began spilling up and coughing Addendum: 04/19/18 at 0537 by Obdulia Quintero RN at this time sbp 93
--- NOTE | 2018-04-19 05:47 | NUR ---
patient reporting severe pain in the right upper chest site; patient requesting morphine prn pain. bp 94/50 at this time and risk of morphine potentially dropping bp explained to patient and family. pt still would like the morphine at this time for pain. will continue to monitor
[2018-04-19] MEDS: morphine 2 MG/ML inj. syringe IV PRN ×3 (05:53→23:35)
--- NOTE | 2018-04-19 06:10 | NUR ---
Patient in room PCU 3012. I have received report from Ana Maria CHEEMA and had the opportunity to ask questions and assume patient care.
--- NOTE | 2018-04-19 06:42 | NUR ---
Problems reprioritized. Patient report given, questions answered & plan of care reviewed with clinton bello. patient on bipap family at bedside patient in no distress. patient's eyes opening when nurse fixed bipap on face
--- NOTE | 2018-04-19 10:20 | NUR ---
Lab called to inform of positive blood cultures grown at 10hr post draw from IV start showing nicole positive cocci in pairs and chains in Aerobic bottle. will inform md and monitor.
--- NOTE | 2018-04-19 12:34 | NUR ---
Malnutrition Consult: Pt admit w/ CHF exacerbation originally visiting for AV fistula declotting since hx ESRD on HD. Temporary HD catheter placed per MD note. Pt wt fluctuates each admit given HD but not loss noted. Severe weakness present w/ bilateral feet +2 edema present. Pt PO pending and also pending hospice/palliative consult per MD note. Will monitor for PO hx in order to determine further malnutrition criteria given good appetite 100% PO meals last admit 03/26/18. LUPE d/w RN for new A1C given last 7.1 taken on 01/25/18. Addendum: 04/19/18 at [address] Amended: Links added.
[2018-04-19] MEDS ORDERED: heparin 1,000unit/ml 10ml vial 10 ML IV ONE (16:28)
[2018-04-19] MEDS ORDERED: normal saline 1000ml 250 ML IV PRN (16:28)
[2018-04-19] MEDS ORDERED: heparin 1,000 units/ml 10ml inj HE ONE ×2 (16:35)
--- NOTE | 2018-04-19 18:30 | NUR ---
Patient receiving dialysis at this time, will hold antibiotics until it is complete
--- NOTE | 2018-04-19 19:00 | NUR ---
Problems reprioritized. Patient report given, questions answered & plan of care reviewed with Radha CHEEMA.
--- NOTE | 2018-04-19 19:01 | NUR ---
HD nurse insists that iv abx be administered after HD run. Pharmacy notified.
--- NOTE | 2018-04-19 22:15 | NUR ---
Dialysis complete, infusing antibiotics at this time. Patient is awake, but lethargic, will continue to monitor closely
[2018-04-19] MEDS: CefTRIAXone/D5W-Rocephin 1gm 50 ML IV SCH (22:25)
[2018-04-19] MEDS: azithromycin/NS 500mg/250ml 250 ML IV SCH (23:46)
[2018-04-20 03:00] VITALS: BP_SYST 110; BP_SYST 97; BP_DIAS 43; BP_DIAS 48
[2018-04-20] MEDS: methylPREDNISolone sod succ/PF 40mg inj. IV SCH ×4 (03:18→20:27)
[2018-04-20 06:00] VITALS: BP 115/50
--- NOTE | 2018-04-20 06:15 | NUR ---
Patient in room PCU 3012. I have received report from DENI Garcia and had the opportunity to ask questions and assume patient care.
[2018-04-20 06:39] LABS: ALANINE AMINOTRANSFERASE 15 U/L (12-78); ALBUMIN/GLOBULIN RATIO 0.6 (1.1-1.5); ALKALINE PHOSPHATASE 34 IU/L (46-116); ANION GAP 11 (8-16); ASPARTATE AMINO TRANSFERASE 47 U/L (10-37); BILIRUBIN,TOTAL 1.5 MG/DL (0.1-1.0); BLOOD UREA NITROGEN 51 MG/DL (7-18); BUN/CREATININE RATIO 15.9 (5.4-32.0); CALCIUM 8.6 MG/DL (8.5-10.1); CHLORIDE 101 MMOL/L (99-107); CREATININE 3.21 MG/DL (0.60-1.10); GLUCOSE 117 MG/DL (70-104); HEMATOCRIT 33.1 % (42.0-52.0); HEMOGLOBIN 11.1 g/dl (14.0-17.9); MAGNESIUM 1.7 MG/DL (1.5-2.4); MEAN CORPUSCULAR HGB CONC 33.5 % (33.0-36.5); MEAN CORPUSCULAR VOLUME 95.3 FL (78-98); PHOSPHORUS 4.9 MG/DL (2.3-4.5); POTASSIUM 4.8 MMOL/L (3.5-5.1); RED BLOOD COUNT 3.47 X10'6 (4.70-6.10); SODIUM 138 MMOL/L (135-145); TOTAL CARBON DIOXIDE 25.9 MMOL/L (24-32); TOTAL PROTEIN 5.4 G/DL (6.4-8.2); WHITE BLOOD COUNT 3.8 X10'3 (4.5-11.0); eGFR 20 ML/MIN
[2018-04-20 06:40] LABS: PLATELET COUNT 73 X10'3 (140-440); RED CELL DISTRIBUTION WIDTH 18.1 % (11.5-14.5)
[2018-04-20 06:41] LABS: BASOPHILS % (AUTO) 0.4 % (0-1); EOSINOPHILS % (AUTO) 0.1 % (0-6); LYMPHOCYTES # (AUTO) 0.3 X10'3 (1.1-4.8); LYMPHOCYTES % (AUTO) 7.7 % (21-51); MONOCYTES % (AUTO) 1.3 % (2-12); NEUTROPHILS # (AUTO) 3.5 X10'3 (1.8-7.7); NEUTROPHILS % (AUTO) 90.5 % (42-75)
[2018-04-20] MEDS: azithromycin/NS 500mg/250ml 250 ML IV SCH (08:00)
[2018-04-20] MEDS: CefTRIAXone/D5W-Rocephin 1gm 50 ML IV SCH (08:20)
[2018-04-20 09:39] LABS: HYPOCHROMASIA 1+; PLATELET ESTIMATE DECREASED
[2018-04-20 09:40] LABS: ANISOCYTOSIS 2+; MICROCYTOSIS 1+
[2018-04-20] MEDS ORDERED: normal saline 1000ml 250 ML IV PRN (09:47)
[2018-04-20] MEDS ORDERED: heparin 1,000unit/ml 10ml vial 10 ML IV ONE (09:47)
[2018-04-20] MEDS ORDERED: heparin 1,000 units/ml 10ml inj HE ONE ×2 (09:55)
[2018-04-20] MEDS: HYDROcodone/acetaminophen 10/325mg tab PO PRN ×2 (10:30→20:40)
[2018-04-20 11:00] VITALS: BP 111/61
--- NOTE | 2018-04-20 14:55 | NUR ---
Malnutrition f/u: Pt PO 0% dinner last night w/ PO pending today. Has encephalopathy likely r/t no HD for 1 week prior to admit per MD note. Given persistent severe weakness and feet +2 edema w/o significant wt loss hx pt qualifies for non-severe malnutrition. notified. LUPE d/w RN for new A1C given last drawn on 01/25 7.1. Novasource added TIDWM for additional protein needs on HD; notified. Will monitor for ONS acceptance and PO diet tolerance. Rec: 1. continue carb controlled diet per MD 2. Novasource TIDWM 3. new A1C given hx T1DM and last taken 01/25 4. wt w/ HD Addendum: 04/20/18 at [address] Amended: Links added.
[2018-04-20 15:00] VITALS: BP 108/75
--- NOTE | 2018-04-20 15:43 | NUR ---
SS reviewed chart and noticed that pt's ADR was not completed appropriately and that pt checked the DNR box & the box to have interventions that prolong his life. Plan will speak w/pt & family to complete new ADR.
--- NOTE | 2018-04-20 16:00 | NUR ---
Called Dr. Castillo regarding pt and left a message. Pt states he feels SOB. Pt is on Bipap, O2 sats in high 90's - 100. Pt states he feels short of breath and does not feel good. Pt's respirations decreasing down to 8, but comes back up quickly. Patient is arousable and able to answer questions appropriately.
[2018-04-20 17:15] LABS: ABG BASE EXCESS 0.6 mmol/L (-2.0-3.0); ABG HCO3 25.4 mmol/L (22.0-26.0); ABG OXYGEN SATURATION 99.1 % (95-98); ABG PCO2 (T) 41.7 mmHg (35.0-48.0); ABG PH (T) 7.403 (7.350-7.450); ABG PO2 (T) 169.2 mmHg (83-108); FCOHb 0.1 % (0.5-1.5); FMetHb 0.2 % (0.3-1.12); FO2Hb 98.8 % (94-100); MINUTE VOLUME 21 L/min; RESPIRATORY RATE 20 b/min; RESPIRATORY RATE (OBSERVED) 26 b/min; TIDAL VOLUME 726 mL; TOTAL HEMOGLOBIN 12.3 G/dl (14.0-18.0)
--- NOTE | 2018-04-20 17:55 | NUR ---
Informed family members that CO2 levels are WNL and we will continue to monitor. No major concerns at this time. Continuing collaboration with family members regarding care.
--- NOTE | 2018-04-20 17:56 | NUR ---
Patient has been closely monitored throughout shift. All pillows adjusted and turns initiated Q2 hours. Patient prefers to be on Right side. Coccyx assessed, optifoam placed. Family members are very concerned and continually communicate with me about status. All questions and concerns addressed.
--- NOTE | 2018-04-20 18:20 | NUR ---
Problems reprioritized. Patient report given, questions answered & plan of care reviewed with DENI Garcia.
[2018-04-20 19:00] VITALS: BP 114/57
--- NOTE | 2018-04-20 19:00 | NUR ---
Patient off Bipap at this time, reqesting jello. Placed on NC @ 4L. Tolerating well O2 saturation 92-96% while eating, will leaving on NC at this time and continue to monitor closely
[2018-04-20 19:40] LABS: MEAN PLATELET VOLUME 10.5 FL (7.4-10.4)
--- NOTE | 2018-04-20 21:30 | NUR ---
Patient falling asleep, placed on Bipap at this time
[2018-04-20] MEDS: morphine 2 MG/ML inj. syringe IV PRN (22:28)
--- NOTE | 2018-04-20 22:46 | NUR ---
Patient stating that the feels like he can't breath, currently on Bipap @ 30% O2 saturation 98% respirations 24, BP 128/56(72). Contacted Aries Wakefield regarding patient's condition, he ordered 1mg Ativan IV Q6H PRN for anxiety. Will continue to monitor closely
[2018-04-20 23:00] VITALS: BP 128/56
[2018-04-21] MEDS ORDERED: levoFLOXACIN-Levaquin 750MG/D5 150 ML IV SCH (01:00)
--- NOTE | 2018-04-21 02:40 | NUR ---
Patient requesting to be asked to taken off Bipap at this time, Placed on NC @ 4L at this time
[2018-04-21] MEDS: methylPREDNISolone sod succ/PF 40mg inj. IV SCH ×4 (02:57→21:45)
[2018-04-21 03:00] VITALS: BP 114/40
--- NOTE | 2018-04-21 03:31 | NUR ---
Patient short of breath, placed back on bipap at this time
[2018-04-21 06:00] VITALS: BP 95/63
--- NOTE | 2018-04-21 06:17 | NUR ---
Patient in room PCU 3012. I have received report from DENI Garcia and had the opportunity to ask questions and assume patient care.
[2018-04-21] MEDS: morphine 2 MG/ML inj. syringe IV PRN ×3 (07:26→15:39)
[2018-04-21] MEDS: CefTRIAXone/D5W-Rocephin 1gm 50 ML IV SCH (07:30)
--- NOTE | 2018-04-21 08:00 | NUR ---
Unable to get weight on patient. He is currently bedrest, doing turns Q2. Patient is on a standard hospital bed.
--- NOTE | 2018-04-21 09:00 | NUR ---
Soo Chaves from LAB informed me that she tried 2 attempts to draw labs, and was unsuccessful. Patient refused another try. Will try again at later time.
[2018-04-21] MEDS: azithromycin/NS 500mg/250ml 250 ML IV SCH (09:14)
[2018-04-21] MEDS ORDERED: normal saline 1000ml 250 ML IV PRN (09:26)
[2018-04-21] MEDS ORDERED: heparin 1,000unit/ml 10ml vial 10 ML IV ONE (09:26)
[2018-04-21] MEDS ORDERED: heparin 1,000 units/ml 10ml inj HE ONE ×2 (09:30)
[2018-04-21 11:00] VITALS: BP 91/77
--- NOTE | 2018-04-21 12:25 | NUR ---
Blood sugar this morning 0700 193, @1200 194. Patient is getting dialysis. Will not treat blood sugar until post dialysis. Will recheck blood sugar.
[2018-04-21] MEDS: LORazepam 2 mg/ml vial IV PRN (13:06)
[2018-04-21 13:13] LABS: ALANINE AMINOTRANSFERASE 23 U/L (12-78); ALBUMIN/GLOBULIN RATIO 0.6 (1.1-1.5); ALKALINE PHOSPHATASE 46 IU/L (46-116); ANION GAP 12 (8-16); ASPARTATE AMINO TRANSFERASE 34 U/L (10-37); BLOOD UREA NITROGEN 47 MG/DL (7-18); BUN/CREATININE RATIO 17.4 (5.4-32.0); CALCIUM 8.5 MG/DL (8.5-10.1); CHLORIDE 99 MMOL/L (99-107); GLUCOSE 211 MG/DL (70-104); MAGNESIUM 1.9 MG/DL (1.5-2.4); PHOSPHORUS 4.5 MG/DL (2.3-4.5); POTASSIUM 4.5 MMOL/L (3.5-5.1); SODIUM 138 MMOL/L (135-145); TOTAL CARBON DIOXIDE 26.6 MMOL/L (24-32); TOTAL PROTEIN 5.5 G/DL (6.4-8.2); eGFR 24 ML/MIN
[2018-04-21 13:26] LABS: BASOPHILS % (AUTO) 0 % (0-1); EOSINOPHILS % (AUTO) 0 % (0-6); HEMATOCRIT 35.2 % (42.0-52.0); HEMOGLOBIN 11.4 g/dl (14.0-17.9); LYMPHOCYTES # (AUTO) 0.4 X10'3 (1.1-4.8); LYMPHOCYTES % (AUTO) 7.9 % (21-51); MEAN CORPUSCULAR HEMOGLOBIN 30.6 PG (27.0-31.0); MEAN CORPUSCULAR HGB CONC 32.3 % (33.0-36.5); MEAN CORPUSCULAR VOLUME 94.8 FL (78-98); MEAN PLATELET VOLUME 10.4 FL (7.4-10.4); MONOCYTES # (AUTO) 0.1 X10'3 (0-0.9); MONOCYTES % (AUTO) 1.9 % (2-12); NEUTROPHILS % (AUTO) 90.2 % (42-75); PLATELET COUNT 72 X10'3 (140-440); RED BLOOD COUNT 3.71 X10'6 (4.70-6.10); RED CELL DISTRIBUTION WIDTH 19.8 % (11.5-14.5); WHITE BLOOD COUNT 4.5 X10'3 (4.5-11.0)
[2018-04-21 15:00] VITALS: BP 115/65
[2018-04-21] MEDS ORDERED: LORazepam 2 mg/ml vial IV ONE (16:15)
--- NOTE | 2018-04-21 16:15 | NUR ---
Pt is agitated and tries to get out of bed. TABS on patient. Alerted Dr Castillo, will order 2mg IV now of Ativan.
--- NOTE | 2018-04-21 16:20 | NUR ---
met w/pt & daughter discussed request to [facility] for increasing pt's service hours when he returns home. Also discussed the very real possibility that pt will require a constant caregiver following d/c. Pt's daughter states that she'd like to see if pt will be ok in his own home first before she decides to have him move in w/her. SS remind pt's daughter that pt will return to the same home environment; strangers coming & going from his home, an unkempt home, and the possibility that [facility] caregiver may not want to go to his home. Pt's daughters have discussed this, and one of his daughter is prepared to move pt in w/her. Family is requesting for Palliative Care and a hospital bed. SS to communicate this to CM.
[2018-04-21] MEDS ORDERED: diltiazem 5mg/ml 5ml inj. IV ONE (16:30)
--- NOTE | 2018-04-21 16:33 | NUR ---
Patient is in Afib, alerted Dr Castillo. Will order 10 mg Cardizem IV now.
--- NOTE | 2018-04-21 18:30 | NUR ---
Patient in room PCU 3012. I have received report from DENI Suárez and had the opportunity to ask questions and assume patient care.
--- NOTE | 2018-04-21 18:45 | NUR ---
Problems reprioritized. Patient report given, questions answered & plan of care reviewed with DENI perdomo.
[2018-04-21 19:00] VITALS: BP 116/66
[2018-04-21] MEDS ORDERED: diltiazem-NS 100mg/100ml 100 ML IV SCH (22:00)
[2018-04-21] MEDS ORDERED: diltiazem-D5W 125mg/125ml 125 ML IV SCH (22:10)
[2018-04-21 23:00] VITALS: BP 135/71
[2018-04-22] VITALS (9 sets, daily range): BP systolic 121–164; BP diastolic 60–117
[2018-04-22] MEDS ORDERED: diltiazem-NS 100mg/100ml 125 ML IV SCH (01:04)
[2018-04-22] MEDS: methylPREDNISolone sod succ/PF 40mg inj. IV SCH ×4 (02:30→21:52)
[2018-04-22] MEDS: LORazepam 2 mg/ml vial IV PRN ×2 (02:55→09:09)
[2018-04-22] MEDS: morphine 2 MG/ML inj. syringe IV PRN (03:43)
[2018-04-22 06:05] LABS: ALANINE AMINOTRANSFERASE 23 U/L (12-78); ALBUMIN 2.1 G/DL (3.4-5.0); ALBUMIN/GLOBULIN RATIO 0.6 (1.1-1.5); ALKALINE PHOSPHATASE 53 IU/L (46-116); ANION GAP 13 (8-16); ASPARTATE AMINO TRANSFERASE 31 U/L (10-37); BILIRUBIN,TOTAL 0.9 MG/DL (0.1-1.0); BLOOD UREA NITROGEN 38 MG/DL (7-18); BUN/CREATININE RATIO 17.1 (5.4-32.0); CALCIUM 8.6 MG/DL (8.5-10.1); CHLORIDE 100 MMOL/L (99-107); CREATININE 2.22 MG/DL (0.60-1.10); GLUCOSE 230 MG/DL (70-104); MAGNESIUM 1.9 MG/DL (1.5-2.4); PHOSPHORUS 4.6 MG/DL (2.3-4.5); POTASSIUM 4.9 MMOL/L (3.5-5.1); SODIUM 137 MMOL/L (135-145); TOTAL CARBON DIOXIDE 23.7 MMOL/L (24-32); TOTAL PROTEIN 5.7 G/DL (6.4-8.2); eGFR 30 ML/MIN
[2018-04-22 06:16] LABS: BASOPHILS % (AUTO) 0.2 % (0-1); EOSINOPHILS % (AUTO) 0.5 % (0-6); HEMATOCRIT 36.9 % (42.0-52.0); LYMPHOCYTES # (AUTO) 0.6 X10'3 (1.1-4.8); LYMPHOCYTES % (AUTO) 11.6 % (21-51); MEAN CORPUSCULAR HEMOGLOBIN 30.6 PG (27.0-31.0); MEAN CORPUSCULAR HGB CONC 32.5 % (33.0-36.5); MEAN CORPUSCULAR VOLUME 93.9 FL (78-98); MEAN PLATELET VOLUME 10.2 FL (7.4-10.4); MONOCYTES # (AUTO) 0.1 X10'3 (0-0.9); MONOCYTES % (AUTO) 1.7 % (2-12); NEUTROPHILS # (AUTO) 4.4 X10'3 (1.8-7.7); PLATELET COUNT 66 X10'3 (140-440); RED BLOOD COUNT 3.93 X10'6 (4.70-6.10); RED CELL DISTRIBUTION WIDTH 19.1 % (11.5-14.5); WHITE BLOOD COUNT 5.2 X10'3 (4.5-11.0)
--- NOTE | 2018-04-22 06:24 | NUR ---
Problems reprioritized. Patient report given, questions answered & plan of care reviewed with DENI Encarnacion.
[2018-04-22 06:25] LABS: HBSAG SCREEN Negative (Negative)
--- NOTE | 2018-04-22 06:30 | NUR ---
Patient in room PCU 3012. I have received report from DENI Lou and had the opportunity to ask questions and assume patient care.
[2018-04-22] MEDS: CefTRIAXone/D5W-Rocephin 1gm 50 ML IV SCH (08:11)
[2018-04-22] MEDS: azithromycin 250mg tablet PO SCH (08:17)
[2018-04-22] MEDS: HYDROcodone/acetaminophen 10/325mg tab PO PRN (08:28)
--- NOTE | 2018-04-22 09:30 | NUR ---
Pt refused to be weighed
[2018-04-22] MEDS: finasteride 5mg tablet PO SCH (09:55)
[2018-04-22] MEDS: aspirin 81mg tablet.DR PO SCH (09:55)
[2018-04-22] MEDS ORDERED: clonazePAM 0.5mg tablet PO PRN (09:55)
[2018-04-22] MEDS ORDERED: HYDROcodone/acetaminophen 10/325mg tab PO PRN (09:55)
--- NOTE | 2018-04-22 12:39 | NUR ---
Reassessment: Pt stable on HD, s/p thoracentesis per MD notes. Documented PO intake continues at 0% not meeting nutrient needs. Nepro has been ordered TID to start today to optimize PO intake and provide adequate nutrition to meet the demands of HD. Noted that pt with ESLD with elevated phos, d/w RN to place pt on renal diet in addition to CHO controlled diet. RN states pt hasn't taken phos binder d/t it just recently being added to med list. Pt still w/o new A1c lab draw, d/w RN to obtain new one, RN to d/w MD. Will continue to follow. Rec: 1. continue carb controlled diet with addition of renal diet per MD 2. Nepro TIDWM 3. new A1C given hx T1DM and last taken 01/25 4. wt w/ HD Addendum: 04/22/18 at [address] Amended: Links added.
[2018-04-22] MEDS: calcium acetate 667mg (PhosLO) capsule PO SCH ×2 (13:00→21:00)
--- NOTE | 2018-04-22 18:29 | NUR ---
Problems reprioritized. Patient report given, questions answered & plan of care reviewed with DENI Platt.
--- NOTE | 2018-04-22 19:26 | NUR ---
Patient in room PCU 3012. I have received report from Alysha CHEEMA and had the opportunity to ask questions and assume patient care.
[2018-04-22] MEDS: lactobacillus rhamnosus 10,000 MMU CELLS/CAPSULE PO SCH (20:00)
[2018-04-22] MEDS: gabapentin 300mg capsule PO SCH (20:00)
[2018-04-22] MEDS: carVEDilol 12.5mg tablet PO SCH (21:51)
[2018-04-22] MEDS: hydrALAZINE 25 MG tablet PO SCH (21:51)
[2018-04-22] MEDS: insulin glargine (Lantus) pen - multi-dose SQ SCH (22:18)
--- NOTE | 2018-04-22 23:45 | NUR ---
PIV to ROHAN infiltrated and D/C'd. Cardizem unable to be admin at this time. Four attempts made per director of staff development W/O success. HOUSE NURSE here attempted four times W/O success. HOME IMPROVEMENT INSTALLER notified and order given to access TDC to R chest. ANESTHESIOLOGY TECHNOLOGIST here, TDC heparin aspirated and TDC flushed. NS IV on at 20mls/HR f/cont. line patency, Cardizem IV restarted at 5mg/HR as ord. HR at 106/min. BP at 134/82. Pt. refused PO meds and this reported to HOME IMPROVEMENT INSTALLER as well. Family at all NOC. Pt. positioned f/comfort.
[2018-04-23] VITALS (11 sets, daily range): BP systolic 116–156; BP diastolic 68–88
[2018-04-23] MEDS: diltiazem-D5W 125mg/125ml 125 ML IV SCH (01:00)
[2018-04-23] MEDS: methylPREDNISolone sod succ/PF 40mg inj. IV SCH ×4 (02:46→20:19)
[2018-04-23] MEDS: LORazepam 2 mg/ml vial IV PRN ×3 (04:39→19:00)
--- NOTE | 2018-04-23 06:30 | NUR ---
Problems reprioritized. Patient report given, questions answered & plan of care reviewed with Alysha CHEEMA.
--- NOTE | 2018-04-23 06:50 | NUR ---
Patient in room PCU 3012. I have received report from DENI Fleming and had the opportunity to ask questions and assume patient care.
[2018-04-23] MEDS: aspirin 81mg tablet.DR PO SCH (08:00)
[2018-04-23] MEDS ORDERED: pantoprazole 40mg Tablet.DR PO SCH (08:00)
[2018-04-23] MEDS: carVEDilol 12.5mg tablet PO SCH ×2 (08:00→20:00)
[2018-04-23] MEDS ORDERED: folic acid/vitamin B complex w/vitamin C 0.8mg tablet PO SCH (08:00)
[2018-04-23] MEDS: gabapentin 300mg capsule PO SCH ×2 (08:00→20:00)
[2018-04-23] MEDS: lactobacillus rhamnosus 10,000 MMU CELLS/CAPSULE PO SCH ×2 (08:00→20:00)
[2018-04-23] MEDS: calcium acetate 667mg (PhosLO) capsule PO SCH ×3 (08:00→21:00)
[2018-04-23] MEDS: azithromycin 250mg tablet PO SCH (08:00)
[2018-04-23] MEDS: hydrALAZINE 25 MG tablet PO SCH ×2 (08:00→20:00)
[2018-04-23] MEDS: finasteride 5mg tablet PO SCH (08:00)
--- NOTE | 2018-04-23 10:14 | NUR ---
ADONIS Santana at bedside. Order received for 5 units humalog insulin SQ once.
[2018-04-23] MEDS ORDERED: insulin Lispro (HumaLOG) vial - multi-dose SQ SCH (10:15)
[2018-04-23] MEDS: CefTRIAXone/D5W-Rocephin 1gm 50 ML IV SCH (10:16)
[2018-04-23] MEDS: morphine 2 MG/ML inj. syringe IV PRN ×2 (17:02→22:43)
--- NOTE | 2018-04-23 18:31 | NUR ---
Problems reprioritized. Patient report given, questions answered & plan of care reviewed with DENI Muñoz.
[2018-04-23] MEDS: insulin glargine (Lantus) pen - multi-dose SQ SCH (21:00)
[2018-04-24] MEDS: diltiazem-D5W 125mg/125ml 125 ML IV SCH (00:39)
[2018-04-24] MEDS: methylPREDNISolone sod succ/PF 40mg inj. IV SCH (02:00)
--- NOTE | 2018-04-24 02:50 | NUR ---
Patients family came to agreement to have patient put on comfort care, Electrical Instrument Technician Shahida Do was contacted and discussed with family what would be done for patient.
[2018-04-24] MEDS: LORazepam 2 mg/ml vial IV PRN ×4 (03:43→16:30)
[2018-04-24] MEDS: morphine 2 MG/ML inj. syringe IV PRN ×6 (04:10→23:02)
--- NOTE | 2018-04-24 06:15 | NUR ---
Patient in room PCU 3012. I have received report from DENI Muñoz and had the opportunity to ask questions and assume patient care.
[2018-04-24 08:00] VITALS: BP 118/81
--- NOTE | 2018-04-24 15:19 | NUR ---
Pt has been made DNR w/ comfort care. No BM yet. Will continue to follow per protocol. Addendum: 04/24/18 at [address] Amended: Links added.
--- NOTE | 2018-04-24 18:30 | NUR ---
Patient in room PCU 3012. I have received report from VANDANA and had the opportunity to ask questions and assume patient care. FAMILY AT THE BEDSIDE.
--- NOTE | 2018-04-24 18:49 | NUR ---
Problems reprioritized. Patient report given, questions answered & plan of care reviewed with DENI Sotelo.
[2018-04-24 19:00] VITALS: BP 135/72
[2018-04-25] MEDS: morphine 2 MG/ML inj. syringe IV PRN ×4 (02:39→13:16)
--- NOTE | 2018-04-25 06:32 | NUR ---
Problems reprioritized. Patient report given, questions answered & plan of care reviewed with ION.
[2018-04-25] MEDS: LORazepam 2 mg/ml vial IV PRN ×3 (07:57→22:33)
[2018-04-25 08:00] VITALS: BP 116/61
[2018-04-25] MEDS: morphine 4 MG/ML inj SYRINge IV PRN ×2 (17:14→20:36)
--- NOTE | 2018-04-25 18:30 | NUR ---
Patient in room PCU 3012. I have received report from Elena CHEEMA and had the opportunity to ask questions and assume patient care.
[2018-04-25] MEDS: normal saline 500ml IV soln 1,000 ML IV SCH (19:35)
[2018-04-25 22:30] VITALS: BP 101/69
--- NOTE | 2018-04-26 04:11 | NUR ---
Family very attentive and have been in room all shift thus far. They are also providing oral care and also helping with repositioning for comfort. Addendum: 04/26/18 at 0412 by Arabella Rodriguez RN Amended: Links added.
[2018-04-26] MEDS: morphine 4 MG/ML inj SYRINge IV PRN ×6 (04:28→23:56)
[2018-04-26] MEDS: LORazepam 2 mg/ml vial IV PRN ×4 (04:40→22:46)
--- NOTE | 2018-04-26 06:45 | NUR ---
Problems reprioritized. Patient report given, questions answered & plan of care reviewed with Eva CHEEMA.
--- NOTE | 2018-04-26 06:45 | NUR ---
Patient in room PCU 3012. I have received report from Arabella CHEEMA and had the opportunity to ask questions and assume patient care.
--- NOTE | 2018-04-26 06:45 | NUR ---
Mouth swabs for comfort only - patient is a mouth breather. Addendum: 04/26/18 at 0646 by Arabella Rodriguez RN Amended: Links added.
[2018-04-26 06:59] VITALS: BP 121/65
--- NOTE | 2018-04-26 18:45 | NUR ---
Problems reprioritized. Patient report given, questions answered & plan of care reviewed with Pearl Kang RN.
--- NOTE | 2018-04-26 18:46 | NUR ---
Patient in room PCU 3012. I have received report from DORINDA CHEEMA and had the opportunity to ask questions and assume patient care.
[2018-04-26] MEDS: normal saline 500ml IV soln 1,000 ML IV SCH (19:11)
[2018-04-26 23:00] VITALS: BP 105/74
--- NOTE | 2018-04-27 06:15 | NUR ---
Problems reprioritized. Patient report given, questions answered & plan of care reviewed with DARIN CHEEMA.
--- NOTE | 2018-04-27 06:35 | NUR ---
Patient in room PCU 3012. I have received report from Shira CHEEMA and had the opportunity to ask questions and assume patient care. Family is in room, pt is sleeping. Will continue to monitor.
[2018-04-27] MEDS: morphine 4 MG/ML inj SYRINge IV PRN ×8 (07:20→22:12)
[2018-04-27] MEDS: LORazepam 2 mg/ml vial IV PRN ×4 (07:57→20:35)
[2018-04-27 08:00] VITALS: BP 129/78
[2018-04-27] MEDS ORDERED: methylPREDNISolone sod succ 125mg/2ml vial IV ONE (15:20)
[2018-04-27] MEDS ORDERED: diphenhydrAMINE 50 mg/ml inj IV ONE (15:20)
[2018-04-27 18:00] VITALS: BP 106/73
--- NOTE | 2018-04-27 18:30 | NUR ---
Patient in room PCU 3012. I have received report from Paola CHEEMA and had the opportunity to ask questions and assume patient care.
--- NOTE | 2018-04-27 18:40 | NUR ---
Problems reprioritized. Patient report given, questions answered & plan of care reviewed with Roselyn CHEEMA.
[2018-04-28] MEDS: morphine 4 MG/ML inj SYRINge IV PRN ×9 (03:10→23:54)
--- NOTE | 2018-04-28 06:22 | NUR ---
Problems reprioritized. Patient report given, questions answered & plan of care reviewed with Paola CHEEMA.
--- NOTE | 2018-04-28 06:28 | NUR ---
Patient in room PCU 3012. I have received report from Roselyn CHEEMA and had the opportunity to ask questions and assume patient care. Will continue to monitor.
[2018-04-28] MEDS: LORazepam 2 mg/ml vial IV PRN ×4 (07:03→23:53)
[2018-04-28 08:00] VITALS: BP 117/61
--- NOTE | 2018-04-28 18:33 | NUR ---
Problems reprioritized. Patient report given, questions answered & plan of care reviewed with Daria CHEEMA.
[2018-04-28 19:00] VITALS: BP 134/99
--- NOTE | 2018-04-28 19:03 | NUR ---
Patient in room PCU 3012. I have received report from Paola CHEEMA and had the opportunity to ask questions and assume patient care. Pt is sleeping. Difficult to arouse. Comfort care measures in place. Family requesting for a youtuber. Updated family that I will do my best to have one come to the room.
--- NOTE | 2018-04-28 22:00 | NUR ---
Chaplain Singh was able to come to the bedside and spend time with the pt and family wisam. She offered to come back in the morning to visit the pt and family if needed. Her number is: [phone]
--- NOTE | 2018-04-29 06:36 | NUR ---
Patient in room PCU 3012. I have received report from Emily CHEEMA and had the opportunity to ask questions and assume patient care. Family at bedside. Will continue to monitor.
[2018-04-29] MEDS: morphine 4 MG/ML inj SYRINge IV PRN (07:59)
[2018-04-29 08:00] VITALS: BP 122/84
--- NOTE | 2018-04-29 10:35 | NUR ---
RN IS TO DOCUMENT YES TO ALL APPLICABLE AREAS Pronouncement of : 1. Time Physician Notified:[id number] 2. Date of :04/29/18 3. Time of : 929 4. DNR/Withdraw life support documented:n/a 5. Monitor strip has been placed on chart:yes 6. Assessment process is of one-minute duration and includes following criteria: a) Patient is unresponsive to all stimuli: y b) Pupils fixed and non-reactive:y c) Auscultation of precordium reveals absence of heart tones:y d) Auscultation of lungs reveals absence of breath sounds:y e) Absence of blood pressure / all vital signs:y f) QRS complexes are not present on monitor / EKG strip:y g) Pacer spikes without capture:n/a 4. Comments: Addendum: 04/29/18 at 1036 by Paola Santana RN Amended: Links added.
--- NOTE | 2018-05-02 08:45 | NUR ---
Pt on CC over the weekend, SS referral closed.
== END 2018-04-29 11:30 | disposition expired | DRG 871 ==
LOC: ER 20:58 → ED HOLD 22:45 → PCU 3S 23:40
PROVIDERS: ADMIT Internal Medicine Critical Care Medicine; ATTEND Internal Medicine Critical Care Medicine
PROC: 5A1D70Z Performance of Urinary Filtration, Intermittent, Less than 6 Hours Per Day (ICD-10-PCS; principal; 2018-04-19)
PROC: 5A09357 Assistance with Respiratory Ventilation, Less than 24 Consecutive Hours, Continuous Positive Airway Pressure (ICD-10-PCS; 2018-04-19)
PROC: 5A1D70Z Performance of Urinary Filtration, Intermittent, Less than 6 Hours Per Day (ICD-10-PCS; 2018-04-20)
PROC: 5A09357 Assistance with Respiratory Ventilation, Less than 24 Consecutive Hours, Continuous Positive Airway Pressure (ICD-10-PCS; 2018-04-20)
PROC: 5A1D70Z Performance of Urinary Filtration, Intermittent, Less than 6 Hours Per Day (ICD-10-PCS; 2018-04-21)
PROC: 5A09357 Assistance with Respiratory Ventilation, Less than 24 Consecutive Hours, Continuous Positive Airway Pressure (ICD-10-PCS; 2018-04-21)
DX: A41.9 Sepsis, unspecified organism (principal); G93.41 Metabolic encephalopathy; J96.22 Acute and chronic respiratory failure with hypercapnia; J18.9 Pneumonia, unspecified organism; N18.6 End stage renal disease; J96.21 Acute and chronic respiratory failure with hypoxia; I13.2 Hypertensive heart and chronic kidney disease with heart failure and with stage 5 chronic kidney disease, or end stage renal disease; J44.1 Chronic obstructive pulmonary disease with (acute) exacerbation; J44.0 Chronic obstructive pulmonary disease with (acute) lower respiratory infection; I50.9 Heart failure, unspecified; K21.9 Gastro-esophageal reflux disease without esophagitis; B19.20 Unspecified viral hepatitis C without hepatic coma; E11.22 Type 2 diabetes mellitus with diabetic chronic kidney disease; G89.29 Other chronic pain; M54.9 Dorsalgia, unspecified; F17.210 Nicotine dependence, cigarettes, uncomplicated; I48.91 Unspecified atrial fibrillation; E87.5 Hyperkalemia; I95.3 Hypotension of hemodialysis; M47.9 Spondylosis, unspecified; M48.00 Spinal stenosis, site unspecified; Z51.5 Encounter for palliative care; Z66 Do not resuscitate; Z99.2 Dependence on renal dialysis; I25.2 Old myocardial infarction; Z95.5 Presence of coronary angioplasty implant and graft; Z90.49 Acquired absence of other specified parts of digestive tract; Z91.15 Patient's noncompliance with renal dialysis; Z91.19 Patient's noncompliance with other medical treatment and regimen; Z82.49 Family history of ischemic heart disease and other diseases of the circulatory system
CPT/HCPCS: 36415; 36600; 71045; 73552; 80053; 82803; 82948; 83605; 83735; 83880; 84100; 84145; 85018; 85025; 87040; 87070; 87077; 87186; 87340; 93005; 94640; 94660; 94760; 96365; 96375; 99285; G0257; G0378; J0456; J0696; J1200; J1644; J1815; J1940; J1956; J2060; J2270; J2405; J2543; J2920; J2930; J3490; P9047